=== PATIENT | male | born 1970 | race Caucasian/White ===

== ENCOUNTER 2020-08-02 12:12 | Outpatient (REF) | payer OTHER, SELFPAY ==
[2020-08-02 14:36] LABS: MANUAL DIFF FLAG NO
[2020-08-02 14:43] LABS: Basophils Percent Auto 0.6 % (0-2); Eosinophils Absolute Auto 0.1 X10*3/uL (0.0-0.4); Eosinophils Percent Auto 2.6 % (0-4); Hematocrit 42.1 % (42-52); Hemoglobin 14.4 g/dl (14.0-18.0); Imm Gran Abs Auto 0.01 X10*3/uL (0.00-0.03); Imm Gran Pct Auto 0.2 % (0.0-0.4); Lymphocytes Absolute Auto 1.9 X10*3/uL (1.2-4.9); Lymphocytes Percent Auto 40.9 % (20-40); Mean Corpuscular HGB Conc 34.2 g/dl (31.0-36.0); Mean Corpuscular Hemoglobin 27.6 pg (27.0-33.0); Mean Corpuscular Volume 80.8 fL (80-98); Mean Platelet Volume 10.2 fL (9.4-12.4); Monocytes Absolute Auto 0.4 X10*3/uL (0.1-1.2); Monocytes Percent Auto 9.2 % (2-11); Neutrophils Absolute Auto 2.2 X10*3/uL (2.0-8.3); Neutrophils Percent Auto 46.5 % (45-73); Platelet Count 259 X10*3/uL (160-400); Red Blood Count 5.21 X10*6/uL (4.60-5.80); Red Cell Distribution Width 13.1 % (11.0-16.0); White Blood Count 4.7 X10*3/uL (4.8-10.8)
[2020-08-02 15:23] LABS: Alanine Aminotransferase 72 U/L (0-40); Albumin Level 4.2 g/dL (3.5-5.0); Alkaline Phosphatase 55 U/L (39-117); Anion Gap 12 (12-20); Aspartate Amino Transferase 30 U/L (5-37); Bilirubin Total 0.3 mg/dL (0.0-1.0); Blood Urea Nitrogen 17 mg/dL (9-16); Calcium 8.5 mg/dL (8.4-10.2); Carbon Dioxide 31 mmol/L (22-29); Chloride 102 mmol/L (96-108); Cholesterol 149 mg/dL; Estimated Glomerular Filt Rate > 60; Glucose Fasting 150 mg/dL (60-99); HDL Cholesterol 27 mg/dL; LDL Cholesterol Calculated 82 mg/dl; Potassium 4.6 mmol/l (3.3-5.1); Sodium 140 mmol/L (135-145); Total Protein 6.6 g/dL (6.5-8.0); Triglycerides 202 mg/dL
== END 2020-08-02 12:13 | disposition home or self-care (01) ==
LOC: HO.HMGCLDS 12:12
PROVIDERS: PCP Internal Medicine; Visit Provider Internal Medicine
DX: E78.00 Pure hypercholesterolemia, unspecified (principal); E11.9 Type 2 diabetes mellitus without complications; I10 Essential (primary) hypertension; K21.9 Gastro-esophageal reflux disease without esophagitis; E66.3 Overweight; I47.1 Supraventricular tachycardia
CPT/HCPCS: 36415; 80053; 80061; 84443; 85025

== ENCOUNTER → 2020-08-20 08:30 | Outpatient (BNVA) | payer OTHER, SELFPAY | PROVIDERS: PCP Internal Medicine; Visit Provider Psychiatry & Neurology Neurology | DX: Z76.89 Persons encountering health services in other specified circumstances (principal) ==

== ENCOUNTER → 2020-10-10 14:17 | Outpatient (BNVA) | payer OTHER, SELFPAY | PROVIDERS: PCP Internal Medicine; Visit Provider Internal Medicine Cardiovascular Disease | DX: I47.1 Supraventricular tachycardia (principal); E11.9 Type 2 diabetes mellitus without complications | CPT/HCPCS: 93005 ==

== ENCOUNTER → 2020-11-26 11:27 | Outpatient (BNVA) | payer OTHER, SELFPAY | PROVIDERS: PCP Internal Medicine; Visit Provider Psychiatry & Neurology Neurology ==

== ENCOUNTER 2020-12-07 07:55 | Outpatient (REF) | payer OTHER, SELFPAY ==
[2020-12-07 08:32] LABS: MANUAL DIFF FLAG NO
[2020-12-07 08:41] LABS: Basophils Absolute Auto 0.1 X10*3/uL (0.0-0.2); Basophils Percent Auto 0.9 % (0-2); Eosinophils Absolute Auto 0.1 X10*3/uL (0.0-0.4); Eosinophils Percent Auto 2.3 % (0-4); Hematocrit 45.9 % (42-52); Hemoglobin 15.4 g/dl (14.0-18.0); Imm Gran Abs Auto 0.01 X10*3/uL (0.00-0.03); Imm Gran Pct Auto 0.2 % (0.0-0.4); Lymphocytes Absolute Auto 1.8 X10*3/uL (1.2-4.9); Lymphocytes Percent Auto 32.3 % (20-40); Mean Corpuscular HGB Conc 33.6 g/dl (31.0-36.0); Mean Corpuscular Hemoglobin 27.2 pg (27.0-33.0); Mean Platelet Volume 9.8 fL (9.4-12.4); Monocytes Absolute Auto 0.4 X10*3/uL (0.1-1.2); Monocytes Percent Auto 7.8 % (2-11); Neutrophils Absolute Auto 3.2 X10*3/uL (2.0-8.3); Neutrophils Percent Auto 56.5 % (45-73); Platelet Count 262 X10*3/uL (160-400); Red Blood Count 5.67 X10*6/uL (4.60-5.80); Red Cell Distribution Width 12.9 % (11.0-16.0); White Blood Count 5.7 X10*3/uL (4.8-10.8)
[2020-12-07 09:05] LABS: Alanine Aminotransferase 50 U/L (0-40); Albumin Level 4.4 g/dL (3.5-5.0); Alkaline Phosphatase 63 U/L (39-117); Anion Gap 13 (12-20); Aspartate Amino Transferase 25 U/L (5-37); Bilirubin Total 0.7 mg/dL (0.0-1.0); Blood Urea Nitrogen 18 mg/dL (9-16); Calcium 8.9 mg/dL (8.4-10.2); Carbon Dioxide 28 mmol/L (22-29); Chloride 104 mmol/L (96-108); Cholesterol 179 mg/dL; Estimated Glomerular Filt Rate > 60; Glucose Fasting 174 mg/dL (60-99); HDL Cholesterol 31 mg/dL; LDL Cholesterol Calculated 102 mg/dl; Potassium 4.5 mmol/L (3.3-5.1); Sodium 140 mmol/L (135-145); Triglycerides 233 mg/dL
[2020-12-07 09:27] LABS: TSH reflex Free T4 0.59 uIU/mL (0.32-4.0); Vitamin D 25-OH Total 45.4 ng/mL (>30)
[2020-12-12 15:17] LABS: Testosterone, Total 351 ng/dL (250-1100)
== END 2020-12-07 07:56 | disposition home or self-care (01) ==
LOC: HO.LAB 07:55
PROVIDERS: PCP Internal Medicine; Visit Provider Internal Medicine
DX: K21.9 Gastro-esophageal reflux disease without esophagitis (principal); E66.3 Overweight; E78.00 Pure hypercholesterolemia, unspecified; I47.1 Supraventricular tachycardia; I10 Essential (primary) hypertension; E11.9 Type 2 diabetes mellitus without complications; R68.82 Decreased libido; E55.9 Vitamin D deficiency, unspecified
CPT/HCPCS: 36415; 80053; 80061; 82306; 84402; 84403; 84443; 85025

== ENCOUNTER → 2021-01-10 15:15 | Outpatient (BNVA) | payer OTHER, SELFPAY | PROVIDERS: PCP Internal Medicine; Visit Provider Nurse Practitioner Family ==

== ENCOUNTER → 2021-02-04 14:48 | Outpatient (BNVA) | payer OTHER, SELFPAY | PROVIDERS: PCP Internal Medicine; Referring Provider Internal Medicine; Visit Provider Nurse Practitioner Family ==

== ENCOUNTER → 2021-03-11 11:24 | Outpatient (BNVA) | payer OTHER, SELFPAY | PROVIDERS: PCP Internal Medicine; Visit Provider Psychiatry & Neurology Neurology ==

== ENCOUNTER → 2021-04-04 13:00 | Outpatient (BNVA) | payer OTHER, SELFPAY | PROVIDERS: PCP Internal Medicine; Visit Provider Urology | DX: N41.9 Inflammatory disease of prostate, unspecified (principal) | CPT/HCPCS: 51798 ==

== ENCOUNTER 2021-04-04 16:28 | Emergency (ER) | payer OTHER, SELFPAY ==
--- NOTE | ~2021-04-04 | CT_ITS ---
EXAMINATION: CT ABDOMEN AND PELVIS WITHOUT CONTRAST CLINICAL INFORMATION: Left flank pain COMPARISON: 08/08/2018 TECHNIQUE: Multidetector volumetric imaging was performed from the superior aspect of the liver through the pubic symphysis. Sagittal and coronal reformatted images were obtained on the technologist's workstation. This CT examination was performed using dose optimization techniques as appropriate, variously including the following: *Automated exposure control *Adjustment of mA and/or kV according to patient size (this includes techniques or standardized protocols for targeted exams where dose is matched to indication/reason for exam; i.e. extremities or head) *Use of iterative reconstruction technique DLP: 668 mGy-cm FINDINGS: LUNG BASES: The visualized lung bases are unremarkable. LIVER, GALLBLADDER, AND BILIARY TREE: Diffuse hepatic steatosis without any gross abnormality on this nonenhanced study. Characteristic focal fatty sparing adjacent to the gallbladder fundus. No gross biliary dilatation. The gallbladder is unremarkable with no evidence of radiopaque gallstones, gallbladder wall thickening, or obvious pericholecystic inflammatory changes. PANCREAS: Unremarkable. SPLEEN: Unremarkable. ADRENAL GLANDS: Unremarkable. KIDNEYS AND URETERS: Right kidney unremarkable. Left kidney notable for hydronephrosis hydroureter down to the level UVJ where there is a 7 mm obstructing stone. No tandem stone. No perinephric collection. BLADDER: Unremarkable. GASTROINTESTINAL TRACT: Scattered diverticula throughout the colon without acute inflammatory changes. Stomach is distended with food material. Cecal base is unremarkable. ABDOMINAL WALL: No significant hernia is appreciated. LYMPH NODES: Normal. VASCULAR: Unremarkable. PELVIC VISCERA: Unremarkable. OSSEOUS STRUCTURES: Unremarkable. CT/CT abdomen pelvis wo con IMPRESSION: 7 mm left UVJ calculus causing obstruction. No tandem stone.
[2021-04-04 16:38] VITALS: BP 151/88; PULSE 64; RESP 16; TEMP 36.3; O2SAT 97; BMI 28.5
--- NOTE | 2021-04-04 16:51 | ECG_ITS ---
Test Reason : ?ALERGIC REACTION Blood Pressure : / mmHG Vent. Rate : 061 BPM Atrial Rate : 061 BPM P-R Int : 158 ms QRS Dur : 096 ms QT Int : 406 ms P-R-T Axes : 045 -16 031 degrees QTc Int : 408 ms Normal sinus rhythm Normal ECG When compared with ECG of 17-JAN-2018 02:05, No significant change was found Referred By: Generic ED Physician Electronically Signed By:NEWTON HARDY
[2021-04-04] MEDS: Acetaminophen 325 MG TABLET 650 MG PO (17:46)
--- NOTE | 2021-04-04 18:26 | ED.GENADULT ---
HPI - General Adult General Chief complaint: Allergic Reaction Stated complaint: med reaction Time Seen by Provider: 04/04/21 17:28 Source: patient Mode of arrival: ambulatory Limitations: no limitations History of Present Illness HPI narrative: 50-year-old male with past medical history of [id number] diabetes, hypertension, AV and RT, GERD, high cholesterol, anxiety here with complaints of left back pain with radiation to the left lower abdomen and testicle times several hours with nausea, feeling lightheaded and weak. No fevers, chills. He has had urinary frequency and urgency. No dysuria or hematuria. No vomiting. Patient was seen today by Dr. Liao and diagnosed with prostatitis. He was started on Cipro, prednisone and flomax. He took one dose of these today. Related Data Home Medications Medication Instructions Recorded Confirmed multivitamin 1 tab PO DAILY 07/23/20 11/06/20 cholecalciferol (vitamin D3) 25 25 mcg PO DAILY 08/19/20 11/06/20 mcg (1,000 unit) capsule Previous Rx's Medication Instructions Recorded sildenafil 50 mg tablet 50 mg PO DAILY PRN 30 Days #30 tab 08/30/20 miscellaneous medical supply 1 ea MISCELLANEOUS .daily as 09/18/20 instructed #1 ea metoprolol succinate 100 mg 100 mg PO DAILY #90 tab 10/09/20 tablet,extended release 24 hr lactobacillus combination no.8 3 3,000 mmu cells PO DAILY #30 cap 01/10/21 billion cell capsule metformin 500 mg tablet,extended 500 mg PO BID 90 Days #180 tab 01/21/21 release 24 hr methylcellulose (laxative) 500 mg 500 mg PO BID #60 tab 02/04/21 tablet omeprazole 20 mg capsule,delayed 20 mg PO DAILY #90 cap 02/04/21 release lisinopril 2.5 mg tablet 2.5 mg PO DAILY #90 tab 03/21/21 paroxetine HCl 30 mg tablet 30 mg PO QAM #90 tab 03/21/21 ciprofloxacin HCl 500 mg tablet 500 mg PO Q12H 14 Days #28 tab 04/04/21 ketorolac 10 mg PO Q8H PRN #10 tab 04/04/21 oxycodone 5 mg PO Q6H PRN #10 tab 04/04/21 prednisone 20 mg tablet 20 mg PO DAILY 5 Days #5 tab 04/04/21 tamsulosin 0.4 mg capsule 0.4 mg PO BEDTIME 30 Days #30 cap 04/04/21 Allergies Allergy/AdvReac Type Severity Reaction Status Date / Time No Known Allergies Allergy Verified 04/04/21 12:58 Review of Systems Review of Systems: Yes all other systems are reviewed and are negative Constitutional: Constitutional: Reports no additional constitutional complaints, Denies body ache(s), Denies chills, Denies fever(s), Denies headache(s) and Denies weakness Eyes: Eyes: Reports no additional eye complaints and Denies change in vision ENT: Reports system reviewed and no additional complaints, except as documented, Denies dizziness, Denies headache(s), Denies nasal congestion, Denies nasal discharge and Denies neck pain Cardiovascular: Cardiovascular: Reports no additional cardiovascular complaints, Denies chest pain, Denies leg edema and Denies dyspnea Respiratory: Respiratory: Reports no additional respiratory complaints, Denies cough and Denies dyspnea Gastrointestinal: Gastrointestinal: Reports no additional gastrointestinal complaints, Reports abdominal pain, Denies diarrhea, Reports nausea and Denies vomiting Genitourinary: Genitourinary: Denies hematuria, Denies dysuria, Reports flank pain, Reports testicular pain, Denies urinary incontinence and Reports urinary urgency Musculoskeletal: Musculoskeletal: Reports no additional musculoskeletal complaints, Reports back pain, Denies arthralgias, Denies joint swelling, Denies neck pain, Denies numbness and Denies tingling Integumentary/Breasts: Skin/Breast: Reports system reviewed and no additional complaints, except as docu and Denies rash Neurologic: Reports system reviewed and no additional complaints, except as documented, Denies Abnormal speech present, Denies dizziness, Denies headache(s), Denies numbness, Denies tingling and Denies weakness [facility] Past Medical History Attestation statement: The following information was validated with the patient. Source: old records reviewed and nursing notes reviewed Medical History Anxiety AVNRT (AV clint re-entry tachycardia) Benign essential hypertension Degenerative joint disease of right shoulder Diabetes mellitus GERD without esophagitis Low back pain Overweight (BMI 25.0-29.9) Pure hypercholesterolemia Urinary frequency Vitamin D deficiency Surgical History H/O left knee surgery History of arthroscopy of right shoulder History of nasal surgery Family History Family History Father Lung cancer Mother Medical history unknown Maternal Grandfather Myocardial infarction Maternal Uncle Myocardial infarction Social History Social History Household Members: Significant Other and Children Alcohol intake: former Advance Directives: No Advance Directives Information Provided: No Physical Exam Vital Signs: Vital Signs: Last Vital Signs Temp 97.7 F 04/04/21 21:34 Pulse 71 04/04/21 21:34 Resp 16 04/04/21 21:34 BP 131/76 04/04/21 21:34 Pulse Ox 99 04/04/21 21:34 Body Mass Index 28.5 Const: General: cooperative, healthy appearing, comfortable and no acute distress Orientation/consciousness: patient oriented x3 Limitations: no limitations HENMT: Head: Yes normal to inspection Ears: hearing grossly normal bilaterally General nose exam: Normal external nose present Face and sinus: Yes normal facial exam Mouth: Normal oral and palatal mucosa present Throat: Yes posterior oropharynx normal Eyes: General: appearance normal, both eyes and all related structures Pupils: Equal, round and reactive pupils present Neck: Neck: Yes normal visual inspection Chest: Chest palpation & inspection: normal inspection of the chest Resp: Effort & Inspection: normal respiratory effort Auscultation: clear to auscultation bilaterally Cardio: Rate: regular rate Rhythm: regular rhythm Peripheral pulses: Peripheral pulses 2+ throughout GI: Inspection: Yes normal to inspection Palpation (GI): Soft to palpation and Tenderness to palpation present (GI) (Left lower abdominal tenderness with no rebound or guarding) Auscultation: normal bowel sounds : Other: Deferred exam General: Yes no CVA tenderness Back/Spine/Pelvis: Back: no CVA tenderness Thoracic/Lumbar Spine: thoracic and lumbar spine normal to inspection Skin: General skin exam: no rashes or lesions noted Neuro: General: patient oriented x3, no focal motor deficits and normal sensation to monofilament Cranial nerves: Yes Equal, round and reactive pupils present Cognition (Neuro): normal cognition Speech: No Abnormal speech present Gait exam (Neuro): Normal gait present Motor exam (neuro): 5/5 motor strength present throughout Extrem: General: Yes normal to inspection, Yes no pedal edema and Yes no calf tenderness Course Course Course Narrative: 50-year-old male here with complaints of left flank pain with radiation to left lower abdomen and left testicle times several hours with nausea and diaphoresis. Also complaining of urinary frequency and urgency. Diagnosis of prostatitis by Dr. Liao today and started on Cipro, Flomax of prednisone. Took 1 dose of these but then the pain started which brought him here to the emergency room today. On exam has no CVA tenderness but does have some mild left lower abdominal tenderness. Will check labs, UA, CT A/P, provide analgesia and reassess 2100-labs are unremarkable. UA shows no signs of infection. CT is consistent with a left 7 mm obstructing UVJ stone. Patient is pain-free after 1 dose of morphine and 1 dose of Toradol. No vomiting and tolerating p.o. Admission was offered but the patient would prefer to go home as he is feeling improved and will follow up outpatient with Urology on Wednesday. He has a prescription for prednisone and Flomax at home which I recommended he continue to take. Reviewed worrisome signs and symptoms such as worsening pain, fever, vomiting and when to return to the emergency department. Comfortable discharge home. Medical Decision Making MDM Narrative Medical decision making narrative: Renal colic, UTI, pyelonephritis Medical Records Medical records reviewed: Yes I reviewed the patient's medical records. Lab Data Lab results reviewed: Yes I reviewed the patient's lab results. Result diagrams: 04/04/21 18:44 04/04/21 18:44 Labs: Lab Results 04/04/21 04/04/21 04/04/21 Range/Units 18:44 18:44 18:44 WBC 10.2 (4.8-10.8) X10*3/uL RBC 5.03 (4.60-5.80) X10*6/uL Hgb 13.9 L (14.0-18.0) g/dl Hct 40.4 L (42-52) % MCV 80.3 (80-98) fL MCH 27.6 (27.0-33.0) pg MCHC 34.4 (31.0-36.0) g/dl RDW 13.0 (11.0-16.0) % Plt Count 228 (160-400) X10*3/uL MPV 9.8 (9.4-12.4) fL Immature Gran % (Auto) 0.3 (0.0-0.4) % Neut % (Auto) 83.1 H (45-73) % Lymph % (Auto) 12.1 L (20-40) % [place] % (Auto) 3.3 (2-11) % Eos % (Auto) 0.7 (0-4) % Baso % (Auto) 0.5 (0-2) % Lymph # (Auto) 1.2 (1.2-4.9) X10*3/uL [place] # (Auto) 0.3 (0.1-1.2) X10*3/uL Eos # (Auto) 0.1 (0.0-0.4) X10*3/uL Baso # (Auto) 0.1 (0.0-0.2) X10*3/uL Abs Immat Gran (auto) 0.03 (0.00-0.03) X10*3/uL Absolute Neuts (auto) 8.5 H (2.0-8.3) X10*3/uL Absolute Nucleated RBC 0.000 (0.0-0.012) X10*3/uL Nucleated RBC % (auto) 0.0 (0.0-0.2) /100WBC Sodium 139 (135-145) mmol/L Potassium 4.8 (3.3-5.1) mmol/L Chloride 105 (96-108) mmol/L Carbon Dioxide 22 (22-29) mmol/L Anion Gap 17 (12-20) BUN 14 (9-16) mg/dL Creatinine 1.10 (0.5-1.4) mg/dL Estim Creat Clear Calc 94.6 Estimated GFR > 60 Random Glucose 178 H (60-115) mg/dL Calcium 9.5 D (8.4-10.2) mg/dL Magnesium 1.9 (1.6-2.6) mg/dL Total Bilirubin (0.0-1.0) mg/dL Direct Bilirubin (0.0-0.5) mg/dL AST (5-37) U/L ALT (0-40) U/L Alkaline Phosphatase (39-117) U/L Troponin I High Sens < 3.5 (<3.5-35.0) ng/L Total Protein (6.5-8.0) g/dL Albumin (3.5-5.0) g/dL 04/04/21 Range/Units 18:44 WBC (4.8-10.8) X10*3/uL RBC (4.60-5.80) X10*6/uL Hgb (14.0-18.0) g/dl Hct (42-52) % MCV (80-98) fL MCH (27.0-33.0) pg MCHC (31.0-36.0) g/dl RDW (11.0-16.0) % Plt Count (160-400) X10*3/uL MPV (9.4-12.4) fL Immature Gran % (Auto) (0.0-0.4) % Neut % (Auto) (45-73) % Lymph % (Auto) (20-40) % [place] % (Auto) (2-11) % Eos % (Auto) (0-4) % Baso % (Auto) (0-2) % Lymph # (Auto) (1.2-4.9) X10*3/uL [place] # (Auto) (0.1-1.2) X10*3/uL Eos # (Auto) (0.0-0.4) X10*3/uL Baso # (Auto) (0.0-0.2) X10*3/uL Abs Immat Gran (auto) (0.00-0.03) X10*3/uL Absolute Neuts (auto) (2.0-8.3) X10*3/uL Absolute Nucleated RBC (0.0-0.012) X10*3/uL Nucleated RBC % (auto) (0.0-0.2) /100WBC Sodium (135-145) mmol/L Potassium (3.3-5.1) mmol/L Chloride (96-108) mmol/L Carbon Dioxide (22-29) mmol/L Anion Gap (12-20) BUN (9-16) mg/dL Creatinine (0.5-1.4) mg/dL Estim Creat Clear Calc Estimated GFR Random Glucose (60-115) mg/dL Calcium (8.4-10.2) mg/dL Magnesium (1.6-2.6) mg/dL Total Bilirubin 0.4 (0.0-1.0) mg/dL Direct Bilirubin < 0.2 (0.0-0.5) mg/dL AST 37 D (5-37) U/L ALT 55 H (0-40) U/L Alkaline Phosphatase 61 (39-117) U/L Troponin I High Sens (<3.5-35.0) ng/L Total Protein 7.0 (6.5-8.0) g/dL Albumin 4.2 (3.5-5.0) g/dL Imaging Data CT scan - abdomen: Attestation: I personally reviewed and interpreted this imaging study as follows: Radiologist's impression: FINDINGS: LUNG BASES: The visualized lung bases are unremarkable. LIVER, GALLBLADDER, AND BILIARY TREE: Diffuse hepatic steatosis without any gross abnormality on this nonenhanced study. Characteristic focal fatty sparing adjacent to the gallbladder fundus. No gross biliary dilatation. The gallbladder is unremarkable with no evidence of radiopaque gallstones, gallbladder wall thickening, or obvious pericholecystic inflammatory changes. PANCREAS: Unremarkable. SPLEEN: Unremarkable. ADRENAL GLANDS: Unremarkable. KIDNEYS AND URETERS: Right kidney unremarkable. Left kidney notable for hydronephrosis hydroureter down to the level UVJ where there is a 7 mm obstructing stone. No tandem stone. No perinephric collection. BLADDER: Unremarkable. GASTROINTESTINAL TRACT: Scattered diverticula throughout the colon without acute inflammatory changes. Stomach is distended with food material. Cecal base is unremarkable. ABDOMINAL WALL: No significant hernia is appreciated. LYMPH NODES: Normal. VASCULAR: Unremarkable. PELVIC VISCERA: Unremarkable. OSSEOUS STRUCTURES: Unremarkable. CT/CT abdomen pelvis wo con IMPRESSION: 7 mm left UVJ calculus causing obstruction. No tandem stone. Discharge Plan Discharge Clinical Impression: Renal colic on left side Patient Disposition: Home, Self-Care Instructions: Renal Colic (ED) Additional Instructions: Continue your medications are prescribed by Dr. Liao today Try taking the Toradol 1st. If that does not work then take the oxycodone Call him Wednesday morning as discussed Return for severe pain, vomiting, fever Prescriptions: New ketorolac 10 mg tablet 10 mg PO Q8H PRN (Reason: pain) Qty: 10 RF: 0 oxycodone 5 mg tablet 5 mg PO Q6H PRN (Reason: pain) Qty: 10 RF: 0 No Action cholecalciferol (vitamin D3) 25 mcg (1,000 unit) capsule 25 mcg PO DAILY RF: 0 sildenafil [Viagra] 50 mg tablet 50 mg PO DAILY PRN (Reason: sexual activity) 30 Days Qty: 30 RF: 1 miscellaneous medical supply Mis 1 ea miscellaneous .daily as instructed Qty: 1 RF: 12 metoprolol succinate 100 mg tablet extended release 24 hr 100 mg PO DAILY Qty: 90 RF: 3 metformin 500 mg tablet extended release 24 hr 500 mg PO BID 90 Days Qty: 180 RF: 1 lisinopril 2.5 mg tablet 2.5 mg PO DAILY Qty: 90 RF: 2 paroxetine HCl 30 mg tablet 30 mg PO QAM Qty: 90 RF: 2 multivitamin Tablet 1 tab PO DAILY RF: 0 Adult Probiotic 3 billion cell capsule 3,000 mmu cells PO DAILY Qty: 30 RF: 2 Citrucel 500 mg tablet 500 mg PO BID Qty: 60 RF: 2 omeprazole 20 mg capsule,delayed release(DR/EC) 20 mg PO DAILY Qty: 90 RF: 1 prednisone 20 mg tablet 20 mg PO DAILY 5 Days Qty: 5 RF: 0 ciprofloxacin HCl 500 mg tablet 500 mg PO Q12H 14 Days Qty: 28 RF: 0 tamsulosin [Flomax] 0.4 mg capsule 0.4 mg PO BEDTIME 30 Days Qty: 30 RF: 0 Referrals: Darin Liao MD [Physician] - 2 days Discharge Date/Time: 04/04/21 21:35
[2021-04-04] MEDS: 0.9 % Sodium Chloride 1,000 ML 999 ML IV (18:46)
[2021-04-04] MEDS: ondansetron HCL 4 MG/2 ML VIAL IVPUSH (18:46)
[2021-04-04] MEDS: Morphine Sulfate 4 MG/ML CARTRIDGE IVPUSH (18:47)
[2021-04-04 18:58] LABS: MANUAL DIFF FLAG NO
[2021-04-04 19:00] LABS: Basophils Absolute Auto 0.1 X10*3/uL (0.0-0.2); Basophils Percent Auto 0.5 % (0-2); Eosinophils Absolute Auto 0.1 X10*3/uL (0.0-0.4); Eosinophils Percent Auto 0.7 % (0-4); Hematocrit 40.4 % (42-52); Hemoglobin 13.9 g/dl (14.0-18.0); Imm Gran Abs Auto 0.03 X10*3/uL (0.00-0.03); Imm Gran Pct Auto 0.3 % (0.0-0.4); Lymphocytes Absolute Auto 1.2 X10*3/uL (1.2-4.9); Lymphocytes Percent Auto 12.1 % (20-40); Mean Corpuscular HGB Conc 34.4 g/dl (31.0-36.0); Mean Corpuscular Hemoglobin 27.6 pg (27.0-33.0); Mean Corpuscular Volume 80.3 fL (80-98); Mean Platelet Volume 9.8 fL (9.4-12.4); Monocytes Absolute Auto 0.3 X10*3/uL (0.1-1.2); Monocytes Percent Auto 3.3 % (2-11); Neutrophils Absolute Auto 8.5 X10*3/uL (2.0-8.3); Neutrophils Percent Auto 83.1 % (45-73); Platelet Count 228 X10*3/uL (160-400); Red Blood Count 5.03 X10*6/uL (4.60-5.80); White Blood Count 10.2 X10*3/uL (4.8-10.8)
[2021-04-04 19:48] LABS: Anion Gap 17 (12-20); Blood Urea Nitrogen 14 mg/dL (9-16); Calcium 9.5 mg/dL (8.4-10.2); Carbon Dioxide 22 mmol/L (22-29); Chloride 105 mmol/L (96-108); Creatinine Clr Calc Pharmacy 94.6; Estimated Glomerular Filt Rate > 60; Glucose Random 178 mg/dL (60-115); Magnesium 1.9 mg/dL (1.6-2.6); Potassium 4.8 mmol/L (3.3-5.1); Sodium 139 mmol/L (135-145)
[2021-04-04 19:49] LABS: Alanine Aminotransferase 55 U/L (0-40); Albumin Level 4.2 g/dL (3.5-5.0); Alkaline Phosphatase 61 U/L (39-117); Aspartate Amino Transferase 37 U/L (5-37); Bilirubin Direct < 0.2 mg/dL (0.0-0.5); Bilirubin Total 0.4 mg/dL (0.0-1.0)
[2021-04-04 19:52] LABS: Troponin-I High Sensitivity < 3.5 ng/L (<3.5-35.0)
[2021-04-04] MEDS: Ketorolac Tromethamine 60 MG/2 ML VIAL 30 MG IM (20:19)
[2021-04-04 20:23] VITALS: BP 138/75; PULSE 69; RESP 16; O2SAT 99
[2021-04-04 21:34] VITALS: BP 131/76; PULSE 71; RESP 16; TEMP 36.5; O2SAT 99
== END 2021-04-04 21:35 | disposition home or self-care (01) ==
PROVIDERS: Nurse Practitioner Family; Emergency Provider Emergency Medicine; PCP Internal Medicine
DX: N23 Unspecified renal colic (principal); M54.5 Low back pain; E11.9 Type 2 diabetes mellitus without complications; Z79.899 Other long term (current) drug therapy
CPT/HCPCS: 36415; 74176; 80048; 80076; 83735; 84484; 85025; 93005; 96365; 96375; 96376; 99285; J1885; J2270; J2405

== ENCOUNTER 2021-04-05 07:59 | Outpatient (REF) | payer OTHER, SELFPAY ==
[2021-04-05 08:49] LABS: Basophils Percent Auto 0.4 % (0-2); Eosinophils Percent Auto 0.5 % (0-4); Hematocrit 39.8 % (42-52); Hemoglobin 13.3 g/dl (14.0-18.0); Imm Gran Abs Auto 0.03 X10*3/uL (0.00-0.03); Imm Gran Pct Auto 0.4 % (0.0-0.4); Lymphocytes Absolute Auto 1.8 X10*3/uL (1.2-4.9); Lymphocytes Percent Auto 22.2 % (20-40); MANUAL DIFF FLAG NO; Mean Corpuscular HGB Conc 33.4 g/dl (31.0-36.0); Mean Corpuscular Hemoglobin 26.9 pg (27.0-33.0); Mean Corpuscular Volume 80.6 fL (80-98); Monocytes Absolute Auto 0.5 X10*3/uL (0.1-1.2); Monocytes Percent Auto 6.5 % (2-11); Neutrophils Absolute Auto 5.8 X10*3/uL (2.0-8.3); Platelet Count 240 X10*3/uL (160-400); Red Blood Count 4.94 X10*6/uL (4.60-5.80); White Blood Count 8.2 X10*3/uL (4.8-10.8)
[2021-04-05 09:13] LABS: Estimated Average Glucose 134 mg/dL; Hemoglobin A1c % 6.3 %
[2021-04-05 09:30] LABS: Alanine Aminotransferase 47 U/L (0-40); Albumin Level 4.1 g/dL (3.5-5.0); Alkaline Phosphatase 55 U/L (39-117); Anion Gap 14 (12-20); Aspartate Amino Transferase 22 U/L (5-37); Bilirubin Total 0.6 mg/dL (0.0-1.0); Blood Urea Nitrogen 22 mg/dL (9-16); Calcium 9.3 mg/dL (8.4-10.2); Carbon Dioxide 25 mmol/L (22-29); Chloride 104 mmol/L (96-108); Cholesterol 190 mg/dL; Estimated Glomerular Filt Rate > 60; Glucose Fasting 147 mg/dL (60-99); HDL Cholesterol 36 mg/dL; LDL Cholesterol Calculated 118 mg/dl; Potassium 4.4 mmol/L (3.3-5.1); Sodium 139 mmol/L (135-145); Total Protein 6.5 g/dL (6.5-8.0); Triglycerides 184 mg/dL
[2021-04-07 13:37] LABS: CRP High Sensitivity 2.1 mg/L
[2021-04-08 22:47] LABS: Transglutaminase Ab IgG 5 U/mL; Transglutaminase IgA 2 U/mL
== END 2021-04-05 08:00 | disposition home or self-care (01) ==
LOC: HO.LAB 07:59
PROVIDERS: Absent Provider Nurse Practitioner Family; PCP Internal Medicine; Visit Provider Internal Medicine
DX: R10.11 Right upper quadrant pain (principal); E11.9 Type 2 diabetes mellitus without complications; E78.00 Pure hypercholesterolemia, unspecified; I10 Essential (primary) hypertension; K21.9 Gastro-esophageal reflux disease without esophagitis; R74.8 Abnormal levels of other serum enzymes; Z83.79 Family history of other diseases of the digestive system
CPT/HCPCS: 36415; 80053; 80061; 83036; 83516; 85025; 86141

== ENCOUNTER 2021-04-07 13:18 | Day surgery (SDC) | payer OTHER, SELFPAY ==
[2021-04-07] VITALS (11 sets, daily range): BP systolic 99–127; BP diastolic 55–85; PULSE 56–86; RESP 16–20; TEMP 36.3–36.7; O2SAT 89–99; BMI 28.5
--- NOTE | 2021-04-07 12:48 | ED_ITS ---
HPI - Abdominal Pain General Chief Complaint: Abdominal Pain Stated Complaint: Kidney stones Time Seen by Provider: 04/07/21 12:47 Source: patient and old records reviewed Mode of arrival: ambulatory Limitations: no limitations History of Present Illness MD elicited complaint: flank pain Pertinent past history: kidney stones (dx 04/04 with 7mm obstructing UVJ stone on L side plan to add on to OR today via Dr. Liao - has been on cipro as well due to dx of prostatitis by Dr. Liao) Onset (ago): day(s) (3) Pain Consistency: intermittent Location: L flank Severity: moderate Quality: stabbing Radiation: none Migration to: no migration Exacerbating factors: nothing Relieving factors: medication Context: history of similar episodes Associated symptoms: nausea and dysuria Treatments prior to arrival: prescription analgesics and other (antibiotics) Related Data Home Medications Medication Instructions Recorded Confirmed multivitamin 1 tab PO DAILY 07/23/20 04/07/21 cholecalciferol (vitamin D3) 25 25 mcg PO DAILY 08/19/20 04/07/21 mcg (1,000 unit) capsule sildenafil 1 tab PO DAILY PRN 04/07/21 04/07/21 Previous Rx's Medication Instructions Recorded metoprolol succinate 100 mg 100 mg PO DAILY #90 tab 10/09/20 tablet,extended release 24 hr lactobacillus combination no.8 3 3,000 mmu cells PO DAILY #30 cap 01/10/21 billion cell capsule metformin 500 mg tablet,extended 500 mg PO BID 90 Days #180 tab 01/21/21 release 24 hr methylcellulose (laxative) 500 mg 500 mg PO BID #60 tab 02/04/21 tablet omeprazole 20 mg capsule,delayed 20 mg PO DAILY #90 cap 02/04/21 release lisinopril 2.5 mg tablet 2.5 mg PO DAILY #90 tab 03/21/21 paroxetine HCl 30 mg tablet 30 mg PO QAM #90 tab 03/21/21 ketorolac 10 mg PO Q8H PRN #10 tab 04/04/21 Allergies Allergy/AdvReac Type Severity Reaction Status Date / Time No Known Allergies Allergy Verified 04/07/21 12:47 Review of Systems Review of Systems Constitutional : No Weight loss, No Fever, No Chills ENT/Mouth : No sore throat, No Rhinorrhea Eyes: No Swelling, No Redness Cardiovascular : No Chest Pain, No SOB, NoEdema Respiratory : No Cough, No Sputum, No Wheezing Gastrointestinal : Positive Nausea, no Vomiting,no Diarrhea, positive abdominal Pain (flank pain), No Hematochezia, No Melena Genitourinary : pos Dysuria, No Urinary Frequency, No Hematuria, No Urgency Musculoskeletal : No joint pain, No Myalgias, No Joint Swelling Skin : No Skin Lesions, No rash Neuro : No Weakness, No Numbness, No Dizziness, No Headache Psych : No Anxiety/Panic, No Depression Heme/Lymph: No Bruising, No Lymphadenopathy Endocrine : No Polyuria, No Polydipsia All other systems reviewed and are negative. Physical Exam Vital Signs: Vital Signs: Last Vital Signs Temp 98.0 F 04/07/21 13:10 Pulse 62 04/07/21 12:47 Resp 20 04/07/21 12:47 BP 114/76 04/07/21 12:47 Pulse Ox 98 04/07/21 12:47 Body Mass Index 28.5 Appearance: Alert. Oriented X3. No acute distress. Eyes: Pupils equal, round and reactive to light. ENT: Pharynx normal. Neck: Normal inspection. Neck supple. CVS: Normal heart rate and rhythm. Pulses normal. Respiratory: No respiratory distress. Breath sounds normal. Abdomen: Mild L sided CVA ttp no rebound or guarding Skin: Skin warm and dry. Normal skin color. Normal skin turgor. Extremities: No lower extremity edema. No calf ttp Neuro: Oriented X 3. No motor deficit. No sensory deficit. MDM - Abdominal Pain MDM Narrative Medical decision making narrative: 50 yo male with hx of SUJEY, prostatitis, here with 3 days of intermittent L flank pain - dx with obstructive 7mm stone UVJ - at this time plan is for possible added on procedure with Dr. Liao - IVF, labs, UA, IV morphine/ativan for pain, I did notify Dr. Liao he will see him in the ED at this time, patient has been NPO all day Lab Data Result diagrams: 04/07/21 13:22 04/07/21 13:22 Labs: Lab Results 04/07/21 04/07/21 04/07/21 Range/Units 13:22 13:22 13:22 WBC 5.1 (4.8-10.8) X10*3/uL RBC 5.20 (4.60-5.80) X10*6/uL Hgb 14.0 (14.0-18.0) g/dl Hct 41.5 L (42-52) % MCV 79.8 L (80-98) fL MCH 26.9 L (27.0-33.0) pg MCHC 33.7 (31.0-36.0) g/dl RDW 12.9 (11.0-16.0) % Plt Count 221 (160-400) X10*3/uL MPV 9.9 (9.4-12.4) fL Immature Gran % (Auto) 0.2 (0.0-0.4) % Neut % (Auto) 51.6 (45-73) % Lymph % (Auto) 36.9 (20-40) % [place] % (Auto) 8.3 (2-11) % Eos % (Auto) 2.4 (0-4) % Baso % (Auto) 0.6 (0-2) % Lymph # (Auto) 1.9 (1.2-4.9) X10*3/uL [place] # (Auto) 0.4 (0.1-1.2) X10*3/uL Eos # (Auto) 0.1 (0.0-0.4) X10*3/uL Baso # (Auto) 0.0 (0.0-0.2) X10*3/uL Abs Immat Gran (auto) 0.01 (0.00-0.03) X10*3/uL Absolute Neuts (auto) 2.6 (2.0-8.3) X10*3/uL Absolute Nucleated RBC 0.000 (0.0-0.012) X10*3/uL Nucleated RBC % (auto) 0.0 (0.0-0.2) /100WBC PT 11.1 (9.9-13.0) SEC INR 1.0 (0.9-1.1) APTT 32.6 (24.1-38.0) SEC Sodium 138 (135-145) mmol/L Potassium 4.3 (3.3-5.1) mmol/L Chloride 104 (96-108) mmol/L Carbon Dioxide 23 (22-29) mmol/L Anion Gap 15 (12-20) BUN 14 (9-16) mg/dL Creatinine 0.72 (0.5-1.4) mg/dL Estim Creat Clear Calc 144.6 Estimated GFR > 60 Random Glucose 130 H (60-115) mg/dL Calcium 9.1 (8.4-10.2) mg/dL COVID-19 (FREDERIC) (Negative) COVID-19 Clin Com 04/07/21 Range/Units 13:22 WBC (4.8-10.8) X10*3/uL RBC (4.60-5.80) X10*6/uL Hgb (14.0-18.0) g/dl Hct (42-52) % MCV (80-98) fL MCH (27.0-33.0) pg MCHC (31.0-36.0) g/dl RDW (11.0-16.0) % Plt Count (160-400) X10*3/uL MPV (9.4-12.4) fL Immature Gran % (Auto) (0.0-0.4) % Neut % (Auto) (45-73) % Lymph % (Auto) (20-40) % [place] % (Auto) (2-11) % Eos % (Auto) (0-4) % Baso % (Auto) (0-2) % Lymph # (Auto) (1.2-4.9) X10*3/uL [place] # (Auto) (0.1-1.2) X10*3/uL Eos # (Auto) (0.0-0.4) X10*3/uL Baso # (Auto) (0.0-0.2) X10*3/uL Abs Immat Gran (auto) (0.00-0.03) X10*3/uL Absolute Neuts (auto) (2.0-8.3) X10*3/uL Absolute Nucleated RBC (0.0-0.012) X10*3/uL Nucleated RBC % (auto) (0.0-0.2) /100WBC PT (9.9-13.0) SEC INR (0.9-1.1) APTT (24.1-38.0) SEC Sodium (135-145) mmol/L Potassium (3.3-5.1) mmol/L Chloride (96-108) mmol/L Carbon Dioxide (22-29) mmol/L Anion Gap (12-20) BUN (9-16) mg/dL Creatinine (0.5-1.4) mg/dL Estim Creat Clear Calc Estimated GFR Random Glucose (60-115) mg/dL Calcium (8.4-10.2) mg/dL COVID-19 (FREDERIC) Negative (Negative) COVID-19 Clin Com See Note ECG Data Attestation: I personally reviewed and interpreted this ECG as follows: ECG interpretation date: 04/07/21 ECG interpretation time: 14:59 Interpretation: Rate: 56 Rhythm: sinus bradycardia [place]: left Normal P waves. Normal LEXI. Normal QRS complex. ST T wave : nonspecific, no JOYCE qTC: normal prior studies: no acute ischemia The study has been interpreted contemporaneously by me. . Discharge Plan Discharge Clinical Impression: Ureterolithiasis Patient Disposition: Admitted As Inpatient [facility] Past Medical History Attestation statement: The following information was validated with the patient. Medical History Anxiety AVNRT (AV clint re-entry tachycardia) Benign essential hypertension Degenerative joint disease of right shoulder Diabetes mellitus GERD without esophagitis Low back pain Overweight (BMI 25.0-29.9) Pure hypercholesterolemia Urinary frequency Vitamin D deficiency Surgical History H/O left knee surgery History of arthroscopy of right shoulder History of nasal surgery Family History Family History Father Lung cancer Mother Medical history unknown Maternal Grandfather Myocardial infarction Maternal Uncle Myocardial infarction Social History Social History (Updated 04/07/21 @ 13:29 by Qi Martino DO) Household Members: Significant Other and Children Alcohol intake: never Patient Tobacco Use Status: Former Tobacco user Use of substances other than those prescribed or required for medical reasons: No Advance Directives: No Advance Directives Information Provided: Yes
--- NOTE | 2021-04-07 12:56 | ECG_ITS ---
Test Reason : CHEST PAIN Blood Pressure : / mmHG Vent. Rate : 056 BPM Atrial Rate : 056 BPM P-R Int : 160 ms QRS Dur : 098 ms QT Int : 440 ms P-R-T Axes : 049 -17 014 degrees QTc Int : 424 ms Sinus bradycardia Normal ECG When compared with ECG of 04-APR-2021 17:02, No significant change was found Referred By: Qi Martino Electronically Signed By:Kermit Yi
[2021-04-07 13:35] LABS: MANUAL DIFF FLAG NO
[2021-04-07 13:37] LABS: Basophils Percent Auto 0.6 % (0-2); Eosinophils Absolute Auto 0.1 X10*3/uL (0.0-0.4); Eosinophils Percent Auto 2.4 % (0-4); Hematocrit 41.5 % (42-52); Imm Gran Abs Auto 0.01 X10*3/uL (0.00-0.03); Imm Gran Pct Auto 0.2 % (0.0-0.4); Lymphocytes Absolute Auto 1.9 X10*3/uL (1.2-4.9); Lymphocytes Percent Auto 36.9 % (20-40); Mean Corpuscular HGB Conc 33.7 g/dl (31.0-36.0); Mean Corpuscular Hemoglobin 26.9 pg (27.0-33.0); Mean Corpuscular Volume 79.8 fL (80-98); Mean Platelet Volume 9.9 fL (9.4-12.4); Monocytes Absolute Auto 0.4 X10*3/uL (0.1-1.2); Monocytes Percent Auto 8.3 % (2-11); Neutrophils Absolute Auto 2.6 X10*3/uL (2.0-8.3); Neutrophils Percent Auto 51.6 % (45-73); Platelet Count 221 X10*3/uL (160-400); Red Cell Distribution Width 12.9 % (11.0-16.0); White Blood Count 5.1 X10*3/uL (4.8-10.8)
[2021-04-07] MEDS: 0.9 % Sodium Chloride 1,000 ML 125 ML IVCONT (13:39)
[2021-04-07] MEDS: Morphine Sulfate 2 MG/ML CARTRIDGE IVPUSH ×2 (13:40→17:34)
[2021-04-07] MEDS: ondansetron HCL 4 MG/2 ML VIAL IVPUSH (13:41)
[2021-04-07] MEDS: LORazepam 2 MG/ML VIAL 1 MG IVPUSH ×2 (13:41→17:35)
[2021-04-07 13:48] LABS: Prothrombin Time 11.1 SEC (9.9-13.0)
[2021-04-07 13:51] LABS: Partial Thromboplastin Time 32.6 SEC (24.1-38.0)
[2021-04-07 13:58] LABS: Anion Gap 15 (12-20); Blood Urea Nitrogen 14 mg/dL (9-16); Calcium 9.1 mg/dL (8.4-10.2); Carbon Dioxide 23 mmol/L (22-29); Chloride 104 mmol/L (96-108); Creatinine Clr Calc Pharmacy 144.6; Estimated Glomerular Filt Rate > 60; Glucose Random 130 mg/dL (60-115); Potassium 4.3 mmol/L (3.3-5.1); Sodium 138 mmol/L (135-145)
[2021-04-07 13:59] LABS: COVID-19 Test Negative (Negative); IDNOW Serial# 9DD0AD1C
[2021-04-07 15:13] LABS: Glucose Urine UA NEG (NEG); Leukocyte Esterase Urine NEG (NEG); Nitrite Urine NEG (NEG); PH 7.5 (5.0-8.0); Specific Gravity - Urine <= 1.005 (1.005-1.025); Urine Blood NEG (NEG); Urine Ketones NEG (NEG); Urine Protein NEG (NEG-TRACE)
[2021-04-07 15:15] LABS: Appearance Urine CLEAR; Color Urine YELLOW
--- NOTE | 2021-04-07 15:22 | PM.UROCN ---
History of Present Illness Consult details Consult date: 04/07/21 Narrative: Fredrick is a pleasant male. Had been seen by PCP last Wednesday and CT scan performed. 7 mm distal left ureteric stone located. Persistent pain at with nausea over the weekend. Not tolerating orals this morning. Admitted to the emergency room for evaluation. Pain currently 5/10 down from 8/10. This secondary to IV pain medication. Would like to move ahead with intervention for his stone. Given the distal location recommendation would be for cystoscopy, retrograde, ureteroscopy and laser lithotripsy with stent placement. We will move ahead with this. Review of Systems Constitutional: Constitutional: Denies chills and Denies fever(s) Cardiovascular: Cardiovascular: Reports no additional cardiovascular complaints and Denies syncope Respiratory: Respiratory: Denies cough Gastrointestinal: Gastrointestinal: Denies abdominal pain and Denies heartburn Genitourinary: Genitourinary: Reports as per HPI and Denies change in libido Neurologic: Denies syncope Psychiatric: Psychiatric: Denies change in libido Endocrine: Endocrine: Denies change in libido [facility] Past Medical History Medical History Anxiety AVNRT (AV clint re-entry tachycardia) Benign essential hypertension Degenerative joint disease of right shoulder Diabetes mellitus GERD without esophagitis Low back pain Overweight (BMI 25.0-29.9) Pure hypercholesterolemia Urinary frequency Vitamin D deficiency Family History Family History Father Lung cancer Mother Medical history unknown Maternal Grandfather Myocardial infarction Maternal Uncle Myocardial infarction Surgical History Surgical History H/O left knee surgery History of arthroscopy of right shoulder History of nasal surgery Social History Social History (Updated 04/07/21 @ 13:29 by Qi Martino DO) Household Members: Significant Other and Children Alcohol intake: never Patient Tobacco Use Status: Former Tobacco user Use of substances other than those prescribed or required for medical reasons: No Advance Directives: No Advance Directives Information Provided: Yes Meds Allergies Allergy/AdvReac Type Severity Reaction Status Date / Time No Known Allergies Allergy Verified 04/07/21 12:47 Active Medications: Current Medications Generic Name Dose Route Start Last Admin Trade Name Freq PRN Reason Stop Dose Admin Sodium Chloride 1,000 mls @ 125 mls/hr 04/07/21 13:00 04/07/21 13:39 Ns IVCONT 125 mls/hr .Q8H LISA Administration Pharmacy Consult 1 each 04/07/21 12:55 Consult Rx Perform Med Rec MISCELLANE ONCE PRN Consult order Home Medications Medication Instructions Recorded Confirmed Last Taken Type multivitamin 1 tab PO DAILY 07/23/20 04/07/21 04/06/21 History cholecalciferol (vitamin D3) 25 25 mcg PO DAILY 08/19/20 04/07/21 04/06/21 History mcg (1,000 unit) capsule sildenafil 1 tab PO DAILY PRN 04/07/21 04/07/21 Unknown History Physical Exam Vital Signs: Vital Signs: Last Vital Signs Temp 98.0 F 04/07/21 13:10 Pulse 62 04/07/21 12:47 Resp 20 04/07/21 12:47 BP 114/76 04/07/21 12:47 Pulse Ox 98 04/07/21 12:47 Body Mass Index 28.5 Const: General: cooperative, healthy appearing, comfortable and no acute distress Orientation/consciousness: patient oriented x3 HENMT: Face and sinus: Yes normal facial exam Mouth: moist mucous membranes Neck: Neck: Yes normal visual inspection, Yes full ROM and Yes trachea midline Chest: Chest palpation & inspection: normal inspection of the chest Resp: Effort & Inspection: normal respiratory effort, able to speak in complete sentences and no respiratory distress GI: Inspection: Yes normal to inspection Back/Spine/Pelvis: Cervical Spine: normal cervical lordosis Thoracic/Lumbar Spine: thoracic and lumbar spine normal to inspection Skin: General skin exam: no rashes or lesions noted Neuro: General: patient oriented x3, gait normal, tone normal and moves all extremities Extrem: General: Yes normal to inspection and Yes capillary refill normal Results Labs Result diagrams: 04/07/21 13:22 04/07/21 13:22 Labs: Abnormal lab results 04/07/21 04/07/21 Range/Units 13:22 13:22 Hct 41.5 L (42-52) % MCV 79.8 L (80-98) fL MCH 26.9 L (27.0-33.0) pg Random Glucose 130 H (60-115) mg/dL Short CBC 04/07/21 Range/Units 13:22 WBC 5.1 (4.8-10.8) X10*3/uL Hgb 14.0 (14.0-18.0) g/dl Hct 41.5 L (42-52) % Plt Count 221 (160-400) X10*3/uL BMP 04/07/21 13:22 Sodium 138 Potassium 4.3 Chloride 104 Carbon Dioxide 23 BUN 14 Creatinine 0.72 Calcium 9.1 Urine 04/07/21 Range/Units 15:01 Urine Color YELLOW Urine Appearance CLEAR Urine pH 7.5 (5.0-8.0) Ur Specific [place] <= 1.005 (1.005-1.025) Urine Protein NEG (NEG-TRACE) MG/DL Urine Glucose (UA) NEG (NEG) MG/DL All other labs normal. Assessment and Plan (1) Ureterolithiasis: Status: Acute Distal left ureteric stone removal Ureteroscopy We discussed the nature of the decision and reasonable alternatives for performing the above surgery. Interventions include chemical dissolution, ESWL, ureteroscopy with laser lithotripsy and stent placement, PCNL. Options such as medical therapy were discussed. The relative uncertainties and benefits related to each alternate procedure were adequately discussed. General surgical risks including, but not limited to, pain, bleeding, infection, myocardial infarction, pulmonary embolus, deep vein thrombosis and cerebrovascular accident which may result in further hospitalization were discussed. Full disclosure of the procedure as well as all major risks, benefits and complications were discussed including but not limited to damage to the urethra, bladder and kidney infection, damage to the ureter, stent migration or malposition, scarring to the renal pelvis, remnant stone fragments, subsequent stone passage with need for secondary procedures. The overall secondary procedure rate is approximately 10-15%. The success rate of the procedure was discussed. Success of the procedure in the short-term does not necessarily guarantee that long-term success will be maintained. Suitable follow up will need to be maintained. The patient showed understanding of discussion and wishes to proceed with - cystoscopy, retrograde, ureteroscopy, possible lithotripsy/stone basketing and stent on the left side Procedures Date of Service Date of Service: 04/07/21
[2021-04-07] MEDS: levoFLOXacin 500 MG TABLET PO (15:55)
--- NOTE | 2021-04-07 16:48 | PC.NURSE ---
pt resting in bed, reporting some anxiety r/t procedure this evening. he reports his pain is creeping back up. pt has family at bedside. they are aware of plan to go to surgery this evening at 2100.
[2021-04-07] MEDS: Ketorolac Tromethamine 30 MG/ML VIAL IVPUSH (17:35)
--- NOTE | 2021-04-07 18:40 | HO.ANESPROP2 ---
[facility] Active Problems Active Problems: All Active Problems (Updated 04/07/21 @ 13:00 by Qi Martino DO) Ureterolithiasis (Acute) Prostatitis (Acute) Urinary frequency (Acute) Low back pain (Acute) Vitamin D deficiency (Acute) Low libido (Acute) Obstructive sleep apnea (Acute) Overweight (BMI 25.0-29.9) (Acute) Anxiety (Acute) Pure hypercholesterolemia (Acute) Degenerative joint disease of right shoulder (Acute) GERD without esophagitis (Acute) AVNRT (AV clint re-entry tachycardia) (Acute) Benign essential hypertension (Acute) Diabetes mellitus (Acute) Past Medical History Medical History Anxiety AVNRT (AV clint re-entry tachycardia) Benign essential hypertension Degenerative joint disease of right shoulder Diabetes mellitus GERD without esophagitis Low back pain Overweight (BMI 25.0-29.9) Pure hypercholesterolemia Urinary frequency Vitamin D deficiency Family History Family History Father Lung cancer Mother Medical history unknown Maternal Grandfather Myocardial infarction Maternal Uncle Myocardial infarction Surgical History Surgical History H/O left knee surgery History of arthroscopy of right shoulder History of nasal surgery Social History Social History Household Members: Significant Other and Children Alcohol intake: never Patient Tobacco Use Status: Former Tobacco user Meds Allergies Allergy/AdvReac Type Severity Reaction Status Date / Time No Known Allergies Allergy Verified 04/07/21 12:47 Home Medications Medication Instructions Recorded Confirmed Last Taken Type multivitamin 1 tab PO DAILY 07/23/20 04/07/21 04/06/21 History cholecalciferol (vitamin D3) 25 25 mcg PO DAILY 08/19/20 04/07/21 04/06/21 History mcg (1,000 unit) capsule sildenafil 1 tab PO DAILY PRN 04/07/21 04/07/21 Unknown History Exam Exam Date and Time: April 07, 2021 1840 Height,Weight and Vital Signs: Height 5 ft 11 in Weight 92.986 kg Last Vital Signs Temp 98.1 F 04/07/21 16:00 Pulse 57 04/07/21 16:00 Resp 16 04/07/21 16:00 BP 99/55 L 04/07/21 16:00 Pulse Ox 99 04/07/21 16:00 Pertinent Lab Results Pertinent Lab Results: Laboratory Tests 04/07/21 04/07/21 04/07/21 13:22 13:22 13:22 WBC 5.1 RBC 5.20 Hgb 14.0 Hct 41.5 L MCV 79.8 L MCH 26.9 L MCHC 33.7 RDW 12.9 Plt Count 221 MPV 9.9 Immature Gran % (Auto) 0.2 Neut % (Auto) 51.6 Lymph % (Auto) 36.9 [place] % (Auto) 8.3 Eos % (Auto) 2.4 Baso % (Auto) 0.6 Lymph # (Auto) 1.9 [place] # (Auto) 0.4 Eos # (Auto) 0.1 Baso # (Auto) 0.0 Abs Immat Gran (auto) 0.01 Absolute Neuts (auto) 2.6 Absolute Nucleated RBC 0.000 Nucleated RBC % (auto) 0.0 PT 11.1 INR 1.0 APTT 32.6 Sodium 138 Potassium 4.3 Chloride 104 Carbon Dioxide 23 Anion Gap 15 BUN 14 Creatinine 0.72 Estim Creat Clear Calc 144.6 Estimated GFR > 60 Random Glucose 130 H Calcium 9.1 Urine Color Urine Appearance Urine pH Ur Specific [place] Urine Protein Urine Glucose (UA) Urine Ketones Urine Blood Urine Nitrite Ur Leukocyte Esterase COVID-19 ([facility]) COVID-19 Clin [facility] 04/07/21 04/07/21 13:22 15:01 WBC RBC Hgb Hct MCV MCH MCHC RDW Plt Count MPV Immature Gran % (Auto) Neut % (Auto) Lymph % (Auto) [place] % (Auto) Eos % (Auto) Baso % (Auto) Lymph # (Auto) [place] # (Auto) Eos # (Auto) Baso # (Auto) Abs Immat Gran (auto) Absolute Neuts (auto) Absolute Nucleated RBC Nucleated RBC % (auto) PT INR APTT Sodium Potassium Chloride Carbon Dioxide Anion Gap BUN Creatinine Estim Creat Clear Calc Estimated GFR Random Glucose Calcium Urine Color YELLOW Urine Appearance CLEAR Urine pH 7.5 Ur Specific [place] <= 1.005 Urine Protein NEG Urine Glucose (UA) NEG Urine Ketones NEG Urine Blood NEG Urine Nitrite NEG Ur Leukocyte Esterase NEG COVID-19 ([facility]) Negative COVID-19 Clin Com See Note Airway Mallampati Class: IV TM Dist: >3cm Neck ROM: Full Heart: RRR Lungs: CTA
--- NOTE | 2021-04-07 19:40 | MHC.SHP ---
Pre-Procedural Eval Section A Date of Service: 04/07/21 The patient is an INPATIENT: No Changes since office visit: No Cold of Flu in the past 2 weeks, No New Medical Problems, No Changes in Medication and No Patient answered all questions The History & Physical has been completed within 30 days and I have reviewed it.: Yes Section B Chief Complaint: Kidney stones Allergies: Allergies Allergy/AdvReac Type Severity Reaction Status Date / Time No Known Allergies Allergy Verified 04/07/21 12:47 Plan Diagnosis/Plan: Unchanged (Cystoscopy, left retrograde, left ureteroscopy, laser lithotripsy stent placement) I have reviewed the history and physical and performed a pertinent physical examination on my patient. No changes have occurred unless specified.
--- NOTE | 2021-04-07 21:14 | P.OP_ITS ---
Operative Note Operative Note Date of Service: 04/07/21 Narrative: PreOperative Diagnosis: Left distal ureteric stone Post Operative Diagnosis: left distal ureteric stone Procedure: - cystoscopy, retrograde - ureteroscopy, laser lithotripsy, stone basketing - stent placement Surgeon: Dr Darin Liao Anesthesia: General Indications for procedure: 50-year-old male. Admitted through emergency room with persistent left flank pain. CT scan from 2 days ago with 6 mm distal left ureteric stone and hydroureter nephrosis. Recommend intervention with ureteroscopy and laser lithotripsy given stone location Procedure: After informed consent was verified patient was brought to the operating placed in supine position. Anesthesia was administered per protocol. Patient was placed in modified dorsal lithotomy position and prepped and draped in a sterile fashion. Safety pause time-out and side of surgery confirmed. Antibiotics confirmed. 22 [place] cystoscope inserted per urethra. There were 2 annular strictures that were dilated with passage of the scope. The bladder was entered. Ureteric orifice in normal position. Left ureteric orifice cannulated retrograde examination performed. Filling defects seen within bottom 2 in of left ureter. Sensor guidewire placed level renal pelvis. Rigid ureteral scope placed. Stone encountered. Stone broken into small pieces using laser. Stone fragments were basketed out of distal portion of the ureter. Multiple passes were performed. Stone sample sent for pathology Six [place] by 26 cm double-J stent placed without difficulty after wire was backloaded through regular cystoscope. He tolerated procedure well was extubated in operating room transferred in stable condition to the recovery area. Pathology: Stone Drains: 6 [place] by 26 cm double-J stent
[2021-04-07] MEDS: Phenazopyridine HCL 100 MG TABLET PO (21:42)
[2021-04-07] MEDS: traMADoL HCL 50 MG TABLET PO (21:43)
--- NOTE | 2021-04-07 23:47 | HO.POSTANES ---
Post Anesthesia Evaluation Post Anesthesia Evaluation Vital Signs: Vital Signs Temp Pulse Resp BP Pulse Ox 04/07/21 22:55 16 95 04/07/21 22:01 79 18 115/72 92 04/07/21 21:46 80 18 89 L 04/07/21 21:41 86 18 116/73 93 04/07/21 21:36 80 18 115/70 93 04/07/21 21:31 82 16 106/85 97 04/07/21 21:26 97.3 F 83 16 127/79 90 L 04/07/21 16:00 98.1 F 57 16 99/55 L 99 04/07/21 15:56 56 16 122/70 96 04/07/21 13:10 98.0 F 04/07/21 12:47 62 20 114/76 98 Anesthesia: Monitored Mental Status: Awake Pain Control: Satisfactory Nausea/Vomiting: None Hydration: Adequate Anesthesia-Related Issues: No Anes. Related Issues
[2021-04-12 20:12] LABS: Stone Source LEFT URETERAL STONE
[2021-04-14 08:42] LABS: Glucose, Whole Blood 112 mg/dL (60-115)
== END 2021-04-07 22:56 | disposition home or self-care (01) ==
LOC: HO.ED 15:34 → HO.SSS 04-08 09:02
PROVIDERS: Urology; PCP Internal Medicine; Visit Provider Emergency Medicine
PROC: (CPT 52356; principal; 2021-04-07 17:30)
DX: N20.1 Calculus of ureter (principal); R35.0 Frequency of micturition; I47.1 Supraventricular tachycardia; I10 Essential (primary) hypertension; E11.9 Type 2 diabetes mellitus without complications; E55.9 Vitamin D deficiency, unspecified; Z87.891 Personal history of nicotine dependence; Z79.899 Other long term (current) drug therapy; Z20.822 Contact with and (suspected) exposure to COVID-19
CPT/HCPCS: 52356; 52352; 36415; 80048; 81003; 82365; 82947; 85025; 85610; 85730; 87635; 88300; 93005; 96361; 96374; 96375; 96376; 99285; C1769; C2617; J0330; J1885; J2060; J2250; J2270; J2405; Q9967

== ENCOUNTER → 2021-04-23 11:42 | Outpatient (BNVA) | payer OTHER, SELFPAY | PROVIDERS: PCP Internal Medicine; Referring Provider Internal Medicine; Visit Provider Nurse Practitioner Family | DX: Z48.816 Encounter for surgical aftercare following surgery on the genitourinary system (principal); N41.9 Inflammatory disease of prostate, unspecified; Z96.0 Presence of urogenital implants; Z87.442 Personal history of urinary calculi | CPT/HCPCS: 52310 ==

== ENCOUNTER 2021-06-11 15:21 | Outpatient (REF) | payer OTHER, SELFPAY ==
--- NOTE | ~2021-06-11 | US_ITS ---
EXAMINATION: US RETROPERITONEAL LIMITED (RENAL ONLY) CLINICAL INFORMATION: Calculus of kidney. COMPARISON: CT abdomen and pelvis 04/04/2021. TECHNIQUE: Real-time imaging of the kidneys. FINDINGS: RIGHT KIDNEY: 11.7 x 6.7 x 6.1 cm (SAG x AP x TRV). The kidney is normal in size, contour, and echogenicity. Renal cortical thickness is normal. No calculi or focal parenchymal lesions. No hydronephrosis. LEFT KIDNEY: 13.2 x 5.6 x 5.4 cm (SAG x AP x TRV). The kidney is normal in size, contour, and echogenicity. Renal cortical thickness is normal. No calculi or focal parenchymal lesions. No hydronephrosis. US/US renal BI IMPRESSION: Normal renal ultrasound.
== END 2021-06-11 15:22 | disposition home or self-care (01) ==
LOC: HO.HMGCX 15:21
PROVIDERS: PCP Internal Medicine; Visit Provider Urology
DX: N20.0 Calculus of kidney (principal)
CPT/HCPCS: 76775

== ENCOUNTER → 2021-06-13 09:44 | Outpatient (BNVA) | payer OTHER, SELFPAY | PROVIDERS: PCP Internal Medicine; Visit Provider Urology ==

== ENCOUNTER 2021-06-16 10:29 | Day surgery (SDC) | payer OTHER, SELFPAY ==
--- NOTE | 2021-06-12 14:57 | HO.ANESPROP2 ---
Documented by User: Sugey Cantor NP 06/12/21 15:03 HPI - Anesthesia Eval Consult details Narrative: 51yo M for Upper Endoscopy and Colonoscopy s/p cysto,etc 03/2021 with GA-ETT 7.5 H/O of DI PMFSH Active Problems Active Problems: All Active Problems (Updated 06/11/21 @ 08:26 by Jazmin Escamilla, RN) Obstructive sleep apnea (Acute) Low libido (Acute) Prostatitis (Acute) Nephrolithiasis (Acute) Urinary frequency (Acute) Low back pain (Acute) Vitamin D deficiency (Acute) Overweight (BMI 25.0-29.9) (Acute) Anxiety (Acute) Pure hypercholesterolemia (Acute) Degenerative joint disease of right shoulder (Acute) GERD without esophagitis (Acute) AVNRT (AV clint re-entry tachycardia) (Acute) Benign essential hypertension (Acute) Diabetes mellitus (Acute) Past Medical History Medical History (Updated 06/13/21 @ 13:38 by Leyla Pringle RN) Anxiety AVNRT (AV clint re-entry tachycardia) Benign essential hypertension Bilateral kidney stones Degenerative joint disease of right shoulder Diabetes mellitus Difficult airway for intubation GERD without esophagitis History of obstructive sleep apnea Low back pain On beta jany at home Overweight (BMI 25.0-29.9) Pure hypercholesterolemia Urinary frequency Vitamin D deficiency Family History Family History Father Lung cancer Mother Medical history unknown Maternal Grandfather Myocardial infarction Maternal Uncle Myocardial infarction Surgical History Surgical History (Updated 06/11/21 @ 08:18 by Jazmin Escamilla RN) H/O left knee surgery History of arthroscopy of right shoulder History of cystoscopy History of nasal surgery Social History Social History Household Members: Significant Other and Children Housing: House Alcohol intake: current Alcohol intake frequency: holidays/special occasions only Patient Tobacco Use Status: Former Tobacco user Second Hand Smoke Exposure: Yes Advance Directives: No Advance Directives Information Provided: Yes service: No Current occupational status: employed Meds Allergies Allergy/AdvReac Type Severity Reaction Status Date / Time No Known Allergies Allergy Verified 06/13/21 09:45 Home Medications Medication Instructions Recorded Confirmed Last Taken Type multivitamin 1 tab PO DAILY 07/23/20 06/11/21 04/06/21 History cholecalciferol (vitamin D3) 25 25 mcg PO DAILY 08/19/20 06/11/21 04/06/21 History mcg (1,000 unit) capsule sildenafil 50 mg tablet 1 tab PO DAILY PRN 04/07/21 06/11/21 Unknown History Bacillus coagulans 10 billion cell 10,000,000,000 cell PO DAILY 06/13/21 Unknown History capsule,delayed release (Probiotic (B. coagulans)) Exam Exam Date and Time: June 12, 2021 1457 Pertinent Lab Results Pertinent Lab Results: Laboratory Tests 04/07/21 04/07/21 13:22 13:22 WBC 5.1 Hgb 14.0 Hct 41.5 L Plt Count 221 Sodium 138 Potassium 4.3 Chloride 104 Carbon Dioxide 23 BUN 14 Creatinine 0.72 Narrative Narrative: EKG 03/2021 Vent. Rate : 056 BPM ? ? Atrial Rate : 056 BPM ?? P-R Int : 160 ms? QRS Dur : 098 ms ? ? QT Int : 440 ms ? ? ? P-R-T Axes : 049 -17 014 degrees ?? QTc Int : 424 ms ? Sinus bradycardia Normal ECG When compared with ECG of 04-APR-2021 17:02, No significant change was found Assessment and Plan Assessment Anesthesia Assessment: Chart Reviewed Documented by User: Stormy Veliz MD 06/16/21 10:52 [facility] Past Medical History Medical History (Updated 06/13/21 @ 13:38 by Leyla Pringle RN) Anxiety AVNRT (AV clint re-entry tachycardia) Benign essential hypertension Bilateral kidney stones Degenerative joint disease of right shoulder Diabetes mellitus Difficult airway for intubation GERD without esophagitis History of obstructive sleep apnea Low back pain On beta jany at home Overweight (BMI 25.0-29.9) Pure hypercholesterolemia Urinary frequency Vitamin D deficiency Family History Family History Father Lung cancer Mother Medical history unknown Maternal Grandfather Myocardial infarction Maternal Uncle Myocardial infarction Family history of problems with anesthesia: No Surgical History Surgical History (Updated 06/11/21 @ 08:18 by Jazmin Escamilla RN) H/O left knee surgery History of arthroscopy of right shoulder History of cystoscopy History of nasal surgery History of Problems with Anesthesia: No Social History Social History Household Members: Significant Other and Children Housing: House Alcohol intake: current Alcohol intake frequency: holidays/special occasions only Patient Tobacco Use Status: Former Tobacco user Second Hand Smoke Exposure: Yes Advance Directives: No Advance Directives Information Provided: Yes service: No Current occupational status: employed Meds Allergies Allergy/AdvReac Type Severity Reaction Status Date / Time No Known Allergies Allergy Verified 06/13/21 09:45 Home Medications Medication Instructions Recorded Confirmed Last Taken Type multivitamin 1 tab PO DAILY 07/23/20 06/11/21 04/06/21 History cholecalciferol (vitamin D3) 25 25 mcg PO DAILY 08/19/20 06/11/21 04/06/21 History mcg (1,000 unit) capsule sildenafil 50 mg tablet 1 tab PO DAILY PRN 04/07/21 06/11/21 Unknown History Bacillus coagulans 10 billion cell 10,000,000,000 cell PO DAILY 06/13/21 Unknown History capsule,delayed release (Probiotic (B. coagulans)) Exam Airway Mallampati Class: II (Two implants laterally) TM Dist: >3cm Neck ROM: Full Heart: rrr Lungs: cta Assessment and Plan Assessment Anesthesia Assessment: Anesthesia Plan Discussed and Chart Reviewed Final Anesthetic Review Family History of Problems with Anesthesia: No History of Problems with Anesthesia: No NPO: Yes ASA Class: II Final Preanesthetic Review: No Changes in Pt Med Stat and Consent Obtained/Reviewed Patient Risk: Intermediate Procedure Risk: Intermediate Anesthetic Plan Anesthetic Plan: MAC: Disposition: Standard PACU
--- NOTE | 2021-06-16 10:40 | MHC.SHP ---
Pre-Procedural Eval Section A Date of Service: 06/16/21 Section B Chief Complaint: Screening, Gerd Relevant Family History (Specify if Yes): No Relevant Social History: None Present Medications: see Short Stay Collaborative assessment Medical History: Significant History (Anxiety AVNRT (AV clint re-entry tachycardia) Benign essential hypertension Bilateral kidney stones Degenerative joint disease of right shoulder Diabetes mellitus Difficult airway for intubation GERD without esophagitis Low back pain On beta jany at home Overweight (BMI 25.0-29.9) Pure hyperchole) History of Previous Operations: Relevant previous surgery/procedure and date(s) (H/O left knee surgery History of arthroscopy of right shoulder History of cystoscopy History of nasal surgery) Allergies: Allergies Allergy/AdvReac Type Severity Reaction Status Date / Time No Known Allergies Allergy Verified 06/13/21 09:45 Review of Systems Sugical H&P ROS: Negative: Constitution, Cardiovascular, Respiratory, Neurological, Psychiatric, Hem-Onc, Allergic/Immunologic, Gastrointestinal, Genitourinary, Musculoskeletal, Integumentary, Endocrine and Eyes/Ears/Nose/Throat Exam Surgical H&P Exam: Normal: HEENT, Normal: Heart, Normal: Lungs, Normal: Extremities, Normal: Abdomen, Normal: Skin and Normal: Neurological Plan Diagnosis/Plan: Unchanged I have reviewed the history and physical and performed a pertinent physical examination on my patient. No changes have occurred unless specified.
[2021-06-16 10:56] VITALS: BP 116/76; PULSE 73; RESP 18; TEMP 36.3; O2SAT 96; BMI 27.8
[2021-06-16 11:07] LABS: Glucose, Whole Blood 133 mg/dL (60-115)
--- NOTE | 2021-06-16 11:13 | P.BOP_ITS ---
Brief Operative Note Date of Service: 06/16/21 Pre-op diagnosis: GERD, colon screening Post-op diagnosis: same Procedure: see op note Surgeon: Silvio Britton MD Anesthesia: MAC Was an Telecommunications Field Technician used for this Procedure?: No Estimated blood loss (mL): 0 Condition: stable Disposition: PACU
--- NOTE | 2021-06-16 11:14 | P.OP_ITS ---
Operative Note Operative Note Date of Service: 06/16/21 Narrative: Operative Information Procedure Description: EGD, Colonoscopy FLEXIBLE TRANSORAL UPPER GASTROINTESTINAL ENDOSCOPY AND COLONOSCOPY PROCEDURE NOTE UPPER ENDOSCOPY Consent: Indications for the procedure and potential complications of bleeding, perforation, reaction to medications and missed diagnosis were discussed with the patient and informed consent was obtained. Instrument: Olympus GIF H 190 J mid size upper endoscope Monitoring: Vital signs and clinical assessment, continuous EKG monitoring, Pulse oximetry, Carbon Dioxide monitoring and blood pressure monitoring were done throughout the procedure. Procedure: The patient was placed in the left lateral decubitis position and pre-procedure medications were administered and a bite block was placed. The endoscope was inserted into the mouth and advanced under direct vision to the third part of duodenum. A careful inspection was made as the upper endoscope was withdrawn including a retroflexed examination of the proximal stomach; Findings and interventions are described below. Findings: Larynx:normal Esophagus: GE junction at 36 cm, diaphragm hiatus at 40 cm, mild esophagitis, 4-5 cm sliding hiatal hernia noted Stomach: Erythema and edema at antrum. Biopsies were obtained. Grade 2 flap valve on retroflexed examination of the cardia. Duodenum: Normal bulb and descending duodenum, Intervention: Biopsies as noted above COLONOSCOPY Instrument: Olympus variable stiffness adult scope 190L Colonoscopy Monitoring: Vital signs and clinical assessment, continuous EKG monitoring, Pulse oximetry, Carbon Dioxide monitoring and blood pressure monitoring were done throughout the procedure. Colon withdrawal time was 11 minutes. Procedure: The patient was placed in the left lateral decubitis position and pre-procedure medications were administered. After a digital rectal examination of the ano-rectum, the video colonoscope was inserted into the rectum and advanced through the colon to the cecum/TI. The colonoscope was slowly withdrawn in a retrograde panoramic fashion and the colon mucosa was carefully examined including a retroflexed view of the rectum. Findings and interventions are described below. Procedure Difficulty: easy Findings: Terminal Ileum-normal Cecum:normal Ascending Colon: normal Transverse Colon -normal Descending Colon:normal Sigmoid Colon: normal Rectum: Retroflexion with small internal hemorrhoids, grade I Anorectum - normal Colon preparation: [place] Bowel Preparation Scale Right colon; 2 Transverse colon: 1 Left colon; 1 (0 = Unprepared colon segment with mucosa not seen due to solid stool that cannot be cleared. 1 = Portion of mucosa of the colon segment seen, but other areas of the colon segment not well seen due to staining, residual stool and/or opaque liquid. 2 = Minor amount of residual staining, small fragments of stool and/or opaque liquid, but mucosa of colon segment seen well. 3 = Entire mucosa of colon segment seen well with no residual staining, small fragments of stool or opaque liquid) Impression and Post Procedure Diagnosis: Endoscopy Findings: hiatal hernia gastritis esophagitis Colonoscopy Findings: internal hemorrhoids poor prep Plan: Await Pathology results Repeat Colonoscopy in 6-12 months due to poor prep or earlier if clinically indicated. Review prep with patient again and ensure compliance. High fiber diet leaflet avoid straining at stool, epsom salts and sitz bath, anusol supps or cream GERD precautions, consider surgical referral for hiatal hernia repair Above findings were reviewed with the patient and relevant handouts were provided if indicated.
[2021-06-16] MEDS: Lactated Ringers 1,000 ML 100 ML IVCONT (11:20)
[2021-06-16 11:57] VITALS: BP 105/64; PULSE 80; RESP 16; TEMP 36.3; O2SAT 94
[2021-06-16 12:12] VITALS: BP 107/64; PULSE 70; RESP 16; O2SAT 96
== END 2021-06-16 12:52 | disposition home or self-care (01) ==
PROVIDERS: PCP Internal Medicine; Visit Provider Internal Medicine Gastroenterology
PROC: (CPT 45378; principal; 2021-06-16 12:20)
DX: Z12.11 Encounter for screening for malignant neoplasm of colon (principal); K64.0 First degree hemorrhoids; K21.00 Gastro-esophageal reflux disease with esophagitis, without bleeding; K29.70 Gastritis, unspecified, without bleeding; K44.9 Diaphragmatic hernia without obstruction or gangrene; K58.2 Mixed irritable bowel syndrome; I10 Essential (primary) hypertension; E11.9 Type 2 diabetes mellitus without complications
CPT/HCPCS: 45378; 43239; 82947; 88305; 88342; J2250

== ENCOUNTER → 2021-07-01 09:13 | Outpatient (BNVA) | payer OTHER, SELFPAY | PROVIDERS: PCP Internal Medicine; Visit Provider Nurse Practitioner Family ==

== ENCOUNTER → 2021-07-17 14:23 | Outpatient (BNVA) | payer OTHER, SELFPAY | PROVIDERS: PCP Internal Medicine; Referring Provider Internal Medicine; Visit Provider Internal Medicine Cardiovascular Disease ==

== ENCOUNTER → 2021-08-08 10:52 | Outpatient (BNVA) | payer OTHER, SELFPAY | PROVIDERS: PCP Internal Medicine; Visit Provider Surgery | DX: K44.9 Diaphragmatic hernia without obstruction or gangrene (principal); K22.70 Barrett's esophagus without dysplasia; G47.33 Obstructive sleep apnea (adult) (pediatric); K21.9 Gastro-esophageal reflux disease without esophagitis; E11.9 Type 2 diabetes mellitus without complications; Z79.899 Other long term (current) drug therapy; Z79.84 Long term (current) use of oral hypoglycemic drugs | CPT/HCPCS: 99212 ==

== ENCOUNTER → 2021-08-11 14:13 | Outpatient (BNVA) | payer OTHER, SELFPAY | PROVIDERS: PCP Internal Medicine; Visit Provider Internal Medicine ==

== ENCOUNTER 2021-11-13 15:13 | Outpatient (REF) | payer OTHER, SELFPAY ==
--- NOTE | ~2021-11-13 | US_ITS ---
EXAMINATION: US RETROPERITONEAL LIMITED (RENAL ONLY) CLINICAL INFORMATION: Calculus of kidney. COMPARISON: Ultrasound of kidneys 06/11/2021. CT abdomen and pelvis 04/04/2021. TECHNIQUE: Real-time imaging of the kidneys. FINDINGS: RIGHT KIDNEY: 11.3 x 6.5 x 6.1 cm (SAG x AP x TRV). The kidney is normal in size, contour, and echogenicity. Renal cortical thickness is normal. No calculi or focal parenchymal lesions. No hydronephrosis. LEFT KIDNEY: 12.7 x 5.6 x 4.8 cm (SAG x AP x TRV). The kidney is normal in size, contour, and echogenicity. Renal cortical thickness is normal. No calculi or focal parenchymal lesions. No hydronephrosis. US/US renal BI IMPRESSION: Normal renal ultrasound.
== END 2021-11-13 15:14 | disposition home or self-care (01) ==
LOC: HO.HMGCX 15:13
PROVIDERS: Visit Provider Urology
DX: N20.0 Calculus of kidney (principal)
CPT/HCPCS: 76775

== ENCOUNTER 2021-11-27 07:20 | Outpatient (REF) | payer OTHER, SELFPAY ==
[2021-11-27 07:42] LABS: MANUAL DIFF FLAG NO
[2021-11-27 08:17] LABS: Basophils Percent Auto 0.8 % (0-2); Eosinophils Absolute Auto 0.1 X10*3/uL (0.0-0.4); Hematocrit 43.4 % (42.0-52.0); Hemoglobin 14.6 g/dl (14.0-18.0); Imm Gran Abs Auto 0.01 X10*3/uL (0.00-0.03); Imm Gran Pct Auto 0.2 % (0.0-0.4); Lymphocytes Absolute Auto 1.7 X10*3/uL (1.2-4.9); Lymphocytes Percent Auto 35.4 % (20-40); Mean Corpuscular HGB Conc 33.6 g/dl (31.0-36.0); Mean Corpuscular Hemoglobin 27.2 pg (27.0-33.0); Mean Platelet Volume 9.7 fL (9.4-12.4); Monocytes Absolute Auto 0.4 X10*3/uL (0.1-1.2); Monocytes Percent Auto 7.7 % (2-11); Neutrophils Absolute Auto 2.6 x10*3/uL (2.0-8.3); Neutrophils Percent Auto 53.9 % (45-73); Platelet Count 243 X10*3/uL (160-400); Red Blood Count 5.36 X10*6/uL (4.60-5.80); Red Cell Distribution Width 13.2 % (11.0-16.0); White Blood Count 4.9 X10*3/uL (4.8-10.8)
[2021-11-27 08:34] LABS: Estimated Average Glucose 146 mg/dL; Hemoglobin A1c % 6.7 %
[2021-11-27 08:43] LABS: Alanine Aminotransferase 67 U/L (0-40); Albumin Level 4.4 g/dL (3.5-5.0); Alkaline Phosphatase 57 U/L (39-117); Anion Gap 13 (12-20); Aspartate Amino Transferase 32 U/L (5-37); Bilirubin Total 0.6 mg/dL (0.0-1.0); Blood Urea Nitrogen 20 mg/dL (9-16); Calcium 9.5 mg/dL (8.4-10.2); Carbon Dioxide 27 mmol/L (22-29); Chloride 104 mmol/L (96-108); Cholesterol 157 mg/dL; Estimated Glomerular Filt Rate > 60; Glucose Fasting 161 mg/dL (60-99); HDL Cholesterol 31 mg/dL; LDL Cholesterol Calculated 72 mg/dl; Potassium 4.6 mmol/L (3.3-5.1); Sodium 139 mmol/L (135-145); Total Protein 7.2 g/dL (6.5-8.0); Triglycerides 272 mg/dL
[2021-11-27 09:04] LABS: TSH reflex Free T4 1.13 uIU/mL (0.32-4.0); Vitamin D 25-OH Total 41.9 ng/mL (>30)
== END 2021-11-27 07:21 | disposition home or self-care (01) ==
LOC: HO.LAB 07:20
PROVIDERS: PCP Internal Medicine; Visit Provider Internal Medicine
DX: E11.9 Type 2 diabetes mellitus without complications (principal); I10 Essential (primary) hypertension; E78.00 Pure hypercholesterolemia, unspecified; E55.9 Vitamin D deficiency, unspecified
CPT/HCPCS: 36415; 80053; 80061; 82306; 83036; 84443; 85025

== ENCOUNTER → 2021-12-02 15:09 | Outpatient (BNVA) | payer OTHER, SELFPAY | PROVIDERS: PCP Internal Medicine; Visit Provider Internal Medicine ==

== ENCOUNTER 2021-12-18 08:50 | Outpatient (REF) | payer OTHER, SELFPAY ==
--- NOTE | ~2021-12-18 | FL_ITS ---
EXAMINATION: FL BARIUM SWALLOW CLINICAL INFORMATION: Diaphragmatic hernia without obstruction or gangrene. COMPARISON: None TECHNIQUE: Barium swallow examination is performed using fluoroscopic evaluation in addition to multiple fluoroscopic spot views. The patient is imaged both upright and prone and using both thick and thin sulfate along with effervescent granules. Fluoroscopy time: 2.2 minutes DAP: 21.642 Gycm2 Images: 55 FINDINGS: Following oral administration of thick barium and barium-coated turkey in upright view, there is normal propagated bolus from the oral cavity through the pharynx, esophagus into stomach without any evidence of obstruction, narrowing, or stricture. On placing patient prone, an oral administration of thin barium, there is good distention of the esophagus without any intraluminal filling defect or narrowing. There is a small sliding hiatal hernia with mild gastroesophageal reflux. FL/FL barium swallow IMPRESSION: Small sliding hiatal hernia with mild gastroesophageal reflux.
== END 2021-12-18 08:51 | disposition home or self-care (01) ==
LOC: HO.XRAY 08:50
PROVIDERS: PCP Internal Medicine; Visit Provider Surgery
DX: K44.9 Diaphragmatic hernia without obstruction or gangrene (principal)
CPT/HCPCS: 74220

== ENCOUNTER → 2022-01-02 11:12 | Outpatient (BNVA) | payer OTHER, SELFPAY | PROVIDERS: PCP Internal Medicine; Visit Provider Surgery | DX: K21.9 Gastro-esophageal reflux disease without esophagitis (principal); K44.9 Diaphragmatic hernia without obstruction or gangrene | CPT/HCPCS: Q3014 ==

== ENCOUNTER 2022-01-08 08:18 | Outpatient (REF) | payer OTHER, SELFPAY ==
--- NOTE | ~2022-01-08 | XR_ITS ---
EXAMINATION: XR SHOULDER, LEFT CLINICAL INFORMATION: Pain. COMPARISON: Radiograph of the right shoulder dated from 08/01/2014. TECHNIQUE: Three views of the left shoulder. FINDINGS: The bones and soft tissues are normal. No fracture. Glenohumeral and acromioclavicular alignment is anatomic with normal joint space. No abnormal soft tissue calcifications. XR/XR shoulder LT min 2V IMPRESSION: Normal left shoulder.
== END 2022-01-08 08:19 | disposition home or self-care (01) ==
LOC: HO.HOSX 08:18
PROVIDERS: Visit Provider Physician Assistant
DX: M75.82 Other shoulder lesions, left shoulder (principal)
CPT/HCPCS: 20610; 73030; J1020

== ENCOUNTER → 2022-01-14 13:48 | Outpatient (REF) | payer OTHER, SELFPAY ==
--- NOTE | 2022-01-14 13:50 | CA_ITS ---
Transthoracic Echocardiogram Patient (Last, First, Middle): Fredrick Carney R Gender: Male Date of : 1970 Age: 51 Procedure Date: 01/14/2022 Procedure Type: Transthoracic Echocardiogram Location: OP Height: 180.34 cm Weight: 92.99 kg BSA: 2.13 m2 Heart Rate: bpm BP: 116 / 74 mmHg Liquid Sugar Fortifier: YR/TO Referring MD: Wagner Kirby MD [employer] Installations Mechanic: Wagner Kirby MD Symptoms: R06.02 - Shortness of breath Study Quality: Fair ECG Rhythm: Sinus Conclusions: - Essentially normal study Findings Left Ventricle Normal left ventricular size, thickness, and systolic function. The visually estimated ejection fraction is between 55-60%. Spectral Doppler is indicative of a normal filling pattern. Right Ventricle Normal right ventricular cavity size and systolic function. Atria Both atria are normal in size. Aortic Valve Normal aortic valve structure and function. There is no aortic valve stenosis. There is no aortic valve regurgitation. Mitral Valve Normal mitral valve structure and function. There is trace mitral valve regurgitation. There is no mitral valve stenosis. Pulmonic Valve The pulmonic valve was not well visualized. Tricuspid Valve The right ventricular systolic pressure is normal. Normal right atrial pressure. There is no evidence of pulmonary hypertension. Great Vessels All visible segments of the aorta are normal in size. The pulmonary artery was not well visualized. Venous The inferior vena cava is normal in size and collapses greater than 50% with inspiration. Pericardium/Pleural There is no evidence of pericardial effusion. Measurements 2D Linear Measurements IVSd: 1.10 0.6-0.9/0.6-1.0 cm LVIDd: 4.79 3.9-5.3/4.2-5.9 cm LVIDd Index: 2.25 2.4-3.2/2.2-3.1 cm/m2 LVIDs: 2.98 2.0-3.6 cm LVPWd: 1.11 0.7-1.1 cm LA Diam: 3.50 2.7-3.8/3.0-4.0 cm LAIDs Index: 1.64 1.5-2.3 cm/m2 LV Mass: 242.42 67-162/88-224 g LV Mass Index: 113.81 43-95/49-115 g/m2 LVOT Diam: 2.30 3.0+(-)1.3 cm 2D Systolic Function EF 4C: 55.40 >55% EF 2C: 53.20 >55% Mitral Valve MV Pk E: 0.63 MV PK A: 0.57 MV Decel Time: 179.00 E/A: 1.10 E'Lateral: 8.27 E'Medial: 7.72 E/E' Med: 8.20 E/E' Lat: 7.70 PHT: 52.00 MVA PHT: 4.23 Decel [place]: 3.54 Aortic Valve AoV Pk Sergio: 1.09 AoV Mn Sergio: 0.76 AoV VTI: 0.22 AoV Pk Grad: 5.00 Aov Mn Grad: 3.00 SUZANNE Cont.VTI: 3.30 LVOT LVOT Pk Sergio: 0.83 LVOT Mn Sergio: 0.54 LVOT VTI: 0.17 LVOT Pk Grad: 3.00 LVOT Mn Grad: 1.00 LVOT Diam: 2.30 LVOT Area: 4.15 Diastolic Function MV Pk E: 0.63 MV Pk A: 0.57 E/A: 1.10 E'Medial: 7.72 E/E' Med: 8.20 E' Laterial: 8.27 E/E' Lat: 7.70 Right Ventricle TAPSE (mm): 19.40 TVS' Sergio: 9.36 Tricuspid Valve TR Pk Sergio: 1.87 TR Pk Grad: 14.00 RA Press: 3.00 RVSP: 17.00 Great Vessels Aorta Sinus of Valsalva: 3.90 2.0-3.[address] [place]: 2.74 1.7-3.4 cm Ao Asc: 3.40 2.1-3.4 cm Ao Arch: 3.00 Updated in Other Vendor System with Status of Final Wagner Kirby MD electronically signed on 01/15/2022 11:32:59 AM with status of Final
== END ==
LOC: HO.CARD 13:48
PROVIDERS: PCP Internal Medicine; Visit Provider Internal Medicine Cardiovascular Disease
DX: R06.02 Shortness of breath (principal)
CPT/HCPCS: 93306

== ENCOUNTER 2022-01-28 15:41 | Outpatient (REF) | payer OTHER, SELFPAY ==
--- NOTE | ~2022-01-28 | MR_ITS ---
EXAMINATION: MR SHOULDER WITHOUT CONTRAST, LEFT CLINICAL INFORMATION: Left shoulder pain and numbness. Pain with movement. Unable to bear weight. COMPARISON: Left shoulder radiographs dated 01/08/2022. TECHNIQUE: Multisequence MR imaging of the left shoulder was obtained without contrast on a high-field strength scanner. FINDINGS: ROTATOR CUFF: No measurable rotator cuff tendon tear. No muscle atrophy or fatty infiltration. BICEPS: Normal. CORACOACROMIAL ARCH: The undersurface of the acromion is curved with small subacromial spurs. Mild acromioclavicular osteoarthritis. Fluid within the subacromial-subdeltoid bursa, consistent with bursitis. LABRUM/CAPSULE: No displaced labral tear. Intact joint capsule. GLENOHUMERAL JOINT/MARROW: Normal. MR/MR shoulder LT wo con IMPRESSION: Mild acromioclavicular osteoarthritis with small subacromial spurs. Mild subacromial-subdeltoid bursitis. No measurable rotator cuff tendon tear.
== END 2022-01-28 15:42 | disposition home or self-care (01) ==
LOC: HO.MRI 15:41
PROVIDERS: PCP Internal Medicine; Visit Provider Physician Assistant
DX: S46.002A Unspecified injury of muscle(s) and tendon(s) of the rotator cuff of left shoulder, initial encounter (principal)
CPT/HCPCS: 73221

== ENCOUNTER → 2022-02-09 14:46 | Outpatient (BNVA) | payer OTHER, SELFPAY | PROVIDERS: PCP Internal Medicine; Visit Provider Orthopaedic Surgery | DX: M75.22 Bicipital tendinitis, left shoulder (principal) ==

== ENCOUNTER 2022-03-05 15:00 | Outpatient (RCR) | payer OTHER, SELFPAY ==
--- NOTE | 2022-02-18 13:33 | MHC.OT.EP ---
[address] [phone] Occupational Therapy Plan of Care Date of Evaluation: 02/17/22 Diagnosis: Left proximal biceps tendinitis and subscapularis strain Assessment: 51 yo right hand dominant male presents with worsening left shoulder pain over the past few months. He has been seen at [facility] and received cortisone injection with very brief relief but was concerned with elevated blood sugars. MRI (+) subacromial spurs, mild AC OA and bursitis; no RTC tear. On assessment, he has decreased shoulder ROM in all planes and sharp pain and tenderness in proximal biceps and subacromial space. (+) Speeds Test and Belly Press Test consistent w/ biceps tendinitis and subscapularis strain. He will benefit from cont'd therapy services to address pain and inflammation and progress range and strengthening with goal of full functional range and use of left arm. Frequency and Duration: The patient will be seen 2x/wk for 4-6 weeks Short Term Goals: Ind w/ AAROM HEP to left shoulder Ind w/ joint protection/activity modification techniques Ind w/ use of ice and heat appropriately for pain/inflammation management and soft tissue prep AAROM left shoulder to 140 flex AAROM ext rot to 60 AAROM int rot to 60 Pt to report relief of nighttime pain and numbness [facility] Goals: Pt to demo reach around to back w/ ease in simulation of washing back/using towel AROM left shoulder to 160 w/ ease Pt to progress to functional lift and carry w/ 30lb weighted boxes Pain free left shoulder w/ moderate daily activities Pt to complete light overhead lift and transfer of 5lb weighted object Treatment Plan: Therapeutic Exercise Therapeutic Activity Home Exercise Program Patient Education Edema Control ADL Training Ultrasound Iontophoresis MHP Cold Packs Soft Tissue Mobilization Kinesiotaping Dexamethasone Electronically Signed By: Makenzie Olvera OTR/Kurt CHT Please Sign and return to therapist. Thank you once again for your referral.
--- NOTE | 2022-03-17 08:05 | MHC.OT.DC ---
[address] [phone] F: [phone] Occupational Therapy Discharge Note Provider: Dr Chery Diagnosis: Left proximal biceps tendinitis and subscapularis strain Date of Evaluation: 02/17/22 Date of Discharge: 03/12/22 Treatments to Date: 4 Discharge Status: Patient Elected to Stop Discharge Summary: Fredrick has been seen in OT for brief course of treatment for left proximal biceps tendinitis and subscapularis strain. He continues to have persistent pain in shoulder, worsening w/ reaching, general use and sleeping. He has had fairly good follow through w/ HEP and icing, but at this time has decided to cancel all further therapy and discuss other options with Dr Chery. Electronically Signed By: DIALLO Khan/Kurt CHT Please Sign and return to therapist, thank you for your referral.
== END 2022-03-17 08:06 | disposition home or self-care (01) ==
LOC: HO.OT 15:00
PROVIDERS: PCP Internal Medicine; Visit Provider Orthopaedic Surgery
DX: M75.22 Bicipital tendinitis, left shoulder (principal)
CPT/HCPCS: 97033; 97110; 97140; 97165

== ENCOUNTER → 2022-10-09 10:13 | Outpatient (BNVA) | payer OTHER, SELFPAY | PROVIDERS: PCP Internal Medicine; Referring Provider Internal Medicine; Visit Provider Internal Medicine Cardiovascular Disease | DX: I47.1 Supraventricular tachycardia (principal); I10 Essential (primary) hypertension | CPT/HCPCS: 93005 ==

== ENCOUNTER → 2022-10-30 09:49 | Outpatient (BNVA) | payer OTHER, SELFPAY | PROVIDERS: PCP Internal Medicine; Visit Provider Surgery | DX: K44.9 Diaphragmatic hernia without obstruction or gangrene (principal); K21.9 Gastro-esophageal reflux disease without esophagitis | CPT/HCPCS: 99212 ==

== ENCOUNTER → 2022-11-02 15:35 | Outpatient (BNVA) | payer OTHER, SELFPAY | PROVIDERS: PCP Internal Medicine; Visit Provider Internal Medicine | DX: Z13.89 Encounter for screening for other disorder (principal) ==

== ENCOUNTER 2022-11-07 07:57 | Outpatient (REF) | payer OTHER, SELFPAY ==
[2022-11-07 08:07] LABS: MANUAL DIFF FLAG NO
[2022-11-07 08:30] LABS: Basophils Percent Auto 0.8 % (0-2); Eosinophils Absolute Auto 0.1 X10*3/uL (0.0-0.4); Eosinophils Percent Auto 1.8 % (0-4); Hematocrit 45.2 % (42.0-52.0); Hemoglobin 15.3 g/dl (14.0-18.0); Lymphocytes Absolute Auto 1.7 X10*3/uL (1.2-4.9); Lymphocytes Percent Auto 34.9 % (20-40); Mean Corpuscular HGB Conc 33.8 g/dl (31.0-36.0); Mean Corpuscular Hemoglobin 27.1 pg (27.0-33.0); Mean Corpuscular Volume 80.1 fL (80.0-98.0); Mean Platelet Volume 10.7 fL (9.4-12.4); Monocytes Absolute Auto 0.4 X10*3/uL (0.1-1.2); Monocytes Percent Auto 8.6 % (2-11); Neutrophils Absolute Auto 2.7 x10*3/uL (2.0-8.3); Neutrophils Percent Auto 53.9 % (45-73); Platelet Count 263 X10*3/uL (160-400); Red Blood Count 5.64 X10*6/uL (4.60-5.80); Red Cell Distribution Width 12.6 % (11.0-16.0)
[2022-11-07 08:39] LABS: Estimated Average Glucose 186 mg/dL; Hemoglobin A1c % 8.1 %
[2022-11-07 09:06] LABS: Alanine Aminotransferase 83 U/L (0-40); Albumin Level 4.5 g/dL (3.5-5.0); Alkaline Phosphatase 68 U/L (39-117); Anion Gap 14 (12-20); Aspartate Amino Transferase 33 U/L (5-37); Bilirubin Total 0.6 mg/dL (0.0-1.0); Blood Urea Nitrogen 18 mg/dL (9-16); Calcium 9.7 mg/dL (8.4-10.2); Carbon Dioxide 25 mmol/L (22-29); Chloride 105 mmol/L (96-108); Cholesterol 187 mg/dL; Estimated Glomerular Filt Rate > 60; Glucose Fasting 277 mg/dL (60-99); HDL Cholesterol 27 mg/dL; LDL Cholesterol Calculated 87 mg/dl; Potassium 4.5 mmol/L (3.3-5.1); Sodium 139 mmol/L (135-145); Triglycerides 369 mg/dL
== END 2022-11-07 07:58 | disposition home or self-care (01) ==
LOC: HO.LAB 07:57
PROVIDERS: PCP Internal Medicine; Visit Provider Internal Medicine
DX: E78.00 Pure hypercholesterolemia, unspecified (principal); E11.9 Type 2 diabetes mellitus without complications; I10 Essential (primary) hypertension
CPT/HCPCS: 36415; 80053; 80061; 83036; 85025

== ENCOUNTER 2023-04-10 07:10 | Outpatient (REF) | payer OTHER, SELFPAY ==
[2023-04-10 07:28] LABS: MANUAL DIFF FLAG NO
[2023-04-10 07:43] LABS: Basophils Absolute Auto 0.1 X10*3/uL (0.0-0.2); Basophils Percent Auto 0.9 % (0-2); Eosinophils Absolute Auto 0.1 X10*3/uL (0.0-0.4); Eosinophils Percent Auto 2.1 % (0-4); Hematocrit 44.1 % (42.0-52.0); Hemoglobin 14.9 g/dl (14.0-18.0); Imm Gran Abs Auto 0.01 X10*3/uL (0.00-0.03); Imm Gran Pct Auto 0.2 % (0.0-0.4); Lymphocytes Absolute Auto 1.9 X10*3/uL (1.2-4.9); Mean Corpuscular HGB Conc 33.8 g/dl (31.0-36.0); Mean Corpuscular Hemoglobin 27.4 pg (27.0-33.0); Mean Corpuscular Volume 81.1 fL (80.0-98.0); Mean Platelet Volume 9.6 fL (9.4-12.4); Monocytes Absolute Auto 0.5 X10*3/uL (0.1-1.2); Monocytes Percent Auto 8.8 % (2-11); Neutrophils Absolute Auto 2.8 x10*3/uL (2.0-8.3); Platelet Count 264 X10*3/uL (160-400); Red Blood Count 5.44 X10*6/uL (4.60-5.80); Red Cell Distribution Width 12.7 % (11.0-16.0); White Blood Count 5.3 X10*3/uL (4.8-10.8)
[2023-04-10 07:49] LABS: Estimated Average Glucose 148 mg/dL; Hemoglobin A1c % 6.8 %
[2023-04-10 08:12] LABS: Alanine Aminotransferase 93 U/L (0-40); Albumin Level 4.4 g/dL (3.5-5.0); Alkaline Phosphatase 46 U/L (39-117); Anion Gap 11 (12-20); Aspartate Amino Transferase 35 U/L (5-37); Bilirubin Total 0.5 mg/dL (0.0-1.0); Blood Urea Nitrogen 17 mg/dL (9-16); Calcium 9.8 mg/dL (8.4-10.2); Carbon Dioxide 26 mmol/L (22-29); Chloride 105 mmol/L (96-108); Cholesterol 180 mg/dL; Estimated Glomerular Filt Rate > 60; Glucose Fasting 207 mg/dL (60-99); HDL Cholesterol 29 mg/dL; LDL Cholesterol Calculated 102 mg/dl; Potassium 4.1 mmol/L (3.3-5.1); Sodium 138 mmol/L (135-145); Total Protein 6.9 g/dL (6.5-8.0); Triglycerides 249 mg/dL
[2023-04-10 08:28] LABS: TSH reflex Free T4 0.78 uIU/mL (0.32-4.0); Vitamin D 25-OH Total 49.6 ng/mL (>30)
== END 2023-04-10 07:11 | disposition home or self-care (01) ==
LOC: HO.LAB 07:10
PROVIDERS: PCP Internal Medicine; Visit Provider Internal Medicine
DX: E78.00 Pure hypercholesterolemia, unspecified (principal); E11.9 Type 2 diabetes mellitus without complications; I10 Essential (primary) hypertension; E55.9 Vitamin D deficiency, unspecified
CPT/HCPCS: 36415; 80053; 80061; 82306; 83036; 84443; 85025

== ENCOUNTER 2023-04-16 13:27 | Emergency (ER) | payer OTHER, SELFPAY ==
--- NOTE | ~2023-04-16 | XR_ITS ---
EXAMINATION: XR CHEST CLINICAL INFORMATION: Chest pain COMPARISON: Previous chest x-ray December 2017 TECHNIQUE: 2 views of the chest were obtained. FINDINGS: No significant abnormality is noted involving the heart, lungs, mediastinum, bony thorax or soft tissues. XR/XR chest 2V IMPRESSION: Unremarkable examination.
--- NOTE | 2023-04-16 13:30 | ECG_ITS ---
Test Reason : HEART RACING/CP Blood Pressure : / mmHG Vent. Rate : 072 BPM Atrial Rate : 072 BPM P-R Int : 168 ms QRS Dur : 090 ms QT Int : 386 ms P-R-T Axes : 037 -22 021 degrees QTc Int : 422 ms Normal sinus rhythm Normal ECG When compared with ECG of 07-APR-2021 14:54, Criteria for Inferior infarct are no longer Present Referred By: Agnes De León Electronically Signed By:Kermit Yi
[2023-04-16 14:14] LABS: MANUAL DIFF FLAG NO
[2023-04-16 14:19] LABS: Basophils Absolute Auto 0.1 X10*3/uL (0.0-0.2); Basophils Percent Auto 1.1 % (0-2); Eosinophils Absolute Auto 0.1 X10*3/uL (0.0-0.4); Eosinophils Percent Auto 1.5 % (0-4); Hematocrit 43.2 % (42.0-52.0); Imm Gran Abs Auto 0.01 X10*3/uL (0.00-0.03); Imm Gran Pct Auto 0.2 % (0.0-0.4); Lymphocytes Absolute Auto 2.1 X10*3/uL (1.2-4.9); Lymphocytes Percent Auto 39.9 % (20-40); Mean Corpuscular HGB Conc 34.7 g/dl (31.0-36.0); Mean Corpuscular Volume 80.7 fL (80.0-98.0); Monocytes Absolute Auto 0.5 X10*3/uL (0.1-1.2); Monocytes Percent Auto 8.5 % (2-11); Neutrophils Absolute Auto 2.6 x10*3/uL (2.0-8.3); Neutrophils Percent Auto 48.8 % (45-73); Platelet Count 283 X10*3/uL (160-400); Red Blood Count 5.35 X10*6/uL (4.60-5.80); Red Cell Distribution Width 12.6 % (11.0-16.0); White Blood Count 5.3 X10*3/uL (4.8-10.8)
[2023-04-16 14:23] VITALS: BP 109/80; PULSE 78; RESP 16; TEMP 35.7; O2SAT 96; BMI 28.2
--- NOTE | 2023-04-16 14:24 | ED_ITS ---
HPI - General Adult General Chief complaint: General Medical Stated complaint: heart racing, arms/legs numb Time Seen by Provider: 04/16/23 18:29 Source: patient Mode of arrival: ambulatory Limitations: no limitations History of Present Illness HPI narrative: Patient is a 53 year old assigned male at with a history of DM, anxiety, AV clint re-entry tachycardia, and SUJEY presenting to the emergency department t eric after an episode of heart palpitations. Patient states that last night he had an episode of heart palpitations with bilateral arm and feet numbness, feeling flush, and nausea. Patient states that he still feels some of that flushed feeling today. Patient denies any current dizziness, lightheadedness, abdominal pain, nausea, vomiting, fever, chills, blurry vision, double vision, loss of vision, chest pain, difficulty breathing, shortness of breath, back pain, night sweats, pain with urination, increased urinary frequency, increased urinary urgency, blood in his urine or stool, syncope or a near syncopal episode, recent trauma or falls, bowel incontinence, bladder incontinence, bowel retention, bladder retention, or any other complaints at this time. Onset (ago): hour(s) Severity: mild Severity scale (1-10): 2 Relieving factors: none Exacerbating factors: none Associated symptoms: other (flush feeling) Treatments prior to arrival: none Related Data Home Medications Medication Instructions Recorded Confirmed multivitamin 1 tab PO DAILY 07/23/20 11/13/22 Bacillus coagulans 10 billion cell 10,000,000,000 cell PO DAILY 06/13/21 11/13/22 capsule,delayed release (Probiotic (B. coagulans)) metformin 500 mg tablet,extended 500 mg PO BID 04/16/23 release 24 hr Previous Rx's Medication Instructions Recorded Lactobacillus 1 cap PO DAILY #30 caps 07/01/21 acidophilus-Bifidobac.animalis 10 billion cell capsule (Digestive Probiotic) sildenafil 50 mg tablet 50 mg PO DAILY PRN Sexual Activity 02/25/22 #10 tabs paroxetine HCl 30 mg tablet 30 mg PO QAM #90 tabs 10/02/22 lisinopril 2.5 mg tablet 2.5 mg PO DAILY #90 tabs 11/01/22 blood-glucose meter,continuous #1 ea 11/18/22 (Dexcom G6 Sheet Cutter) blood-glucose sensor (Dexcom G6 #3 ea 11/18/22 Sensor device) blood-glucose transmitter (Dexcom #1 ea 11/18/22 G6 Transmitter device) cholecalciferol (vitamin D3) 25 25 mcg PO DAILY #90 caps 01/19/23 mcg (1,000 unit) capsule (Vitamin D3) cyclobenzaprine 10 mg tablet 10 mg PO BEDTIME #14 tabs 02/02/23 meloxicam 15 mg tablet 15 mg PO DAILY #14 tabs 02/02/23 metoprolol succinate 100 mg 100 mg PO DAILY 90 days #90 tabs 03/02/23 tablet,extended release 24 hr icosapent ethyl 1 gram capsule 2 g PO BID 30 days #120 caps 04/14/23 (Vascepa) methylcellulose (laxative) 500 mg 1,000 mg PO BID #120 tabs 04/16/23 tablet (Citrucel) omeprazole 20 mg capsule,delayed 20 mg PO DAILY 90 days #90 caps 04/16/23 release Allergies Allergy/AdvReac Type Severity Reaction Status Date / Time No Known Allergies Allergy Verified 04/16/23 16:22 Review of Systems Constitutional: Constitutional: Reports no additional constitutional complaints, Denies chills, Denies fever(s) and Denies night sweats Eyes: Eyes: Reports no additional eye complaints, Denies blurry vision, Denies change in vision, Denies diplopia, Denies eye discharge, Denies loss of vision and Denies eye pain ENT: Denies dizziness Cardiovascular: Cardiovascular: Reports no additional cardiovascular complaints, Denies chest pain, Denies lightheadedness, Denies Loss of Consciousness, Reports palpitations (last night, now resolved) and Denies dyspnea Respiratory: Respiratory: Reports no additional respiratory complaints and Denies dyspnea Gastrointestinal: Gastrointestinal: Reports no additional gastrointestinal complaints, Denies abdominal pain, Denies melena, Denies hematochezia, Denies change in bowel habits and Denies change in stool character Genitourinary: Genitourinary: Reports no additional male genitourinary complaints, Denies hematuria, Denies oliguria, Denies difficulty urinating, Denies dysuria, Denies urinary frequency, Denies urinary hesitancy, Denies urinary incontinence and Denies urinary urgency Musculoskeletal: Musculoskeletal: Reports no additional musculoskeletal comp laints, Reports numbness and Reports tingling Neurologic: Denies dizziness, Denies loss of vision, Reports numbness and Reports tingling Comments: numbness and tingling last night that has now resolved Psychiatric: Psychiatric: Reports no additional psychiatric complaints Endocrine: Endocrine: Reports no additional endocrine complaints and Reports palpitations (last night, now resolved) Hematologic/Lymphatic: Hematologic/Lymphatic: Reports no additional hematologic/lymphatic complaints Allergic/Immunologic: Allergic/Immunologic: Reports no additional allergic/immunologic complaints [facility] Past Medical History Attestation statement: The following information was validated with the patient. Source: old records reviewed and nursing notes reviewed Medical History Anxiety AVNRT (AV clint re-entry tachycardia) Benign essential hypertension Bilateral kidney stones Degenerative joint disease of right shoulder Diabetes mellitus Difficult airway for intubation Gastroesophageal reflux disease concurrent with and due to paraesophageal hernia History of obstructive sleep apnea Low back pain Obstructive sleep apnea (~2008) Overweight (BMI 25.0-29.9) Personal history of nicotine dependence Physical exam Pure hypercholesterolemia Subscapularis (muscle) sprain Urinary frequency Vitamin D deficiency Surgical History History of arthroscopy of right shoulder (~2011) History of colonoscopy (~2020) History of cystoscopy (~2020) History of esophagogastroduodenoscopy (EGD) (~2020) History of left knee surgery (~1992) History of nasal surgery (~1996) Family History Family History Father Lung cancer Mother Medical history unknown Maternal Grandfather Myocardial infarction Maternal Uncle Myocardial infarction Social History Social History Household Members: Significant Other and Children Housing: House Alcohol intake: current Alcohol intake frequency: holidays/special occasions only Patient Tobacco Use Status: Former Tobacco user e-Cigarette/Vaping Use: Never Used Second Hand Smoke Exposure: Yes Advance Directives: No Advance Directives Information Provided: No service: No Current occupational status: employed Cognitive needs: No Hearing needs: No Vision needs: Yes (reading glasses) Physical Exam ED Vital Signs: BMI result Body Mass Index 28.2 Course Course Course Narrative: RME performed by Agnes De León PA-C. Patient is a 53 year old assigned male at presenting to the emergency department with chest pain, palpitations, and extremity numbness. Labs and swabs ordered. Patient placed back in the waiting room pending room availability and results. Medical Decision Making Medical Decision Making [facility] Narrative: Patient is a 53 year old assigned male at with a history of DM, anxiety, AV clint re-entry tachycardia, and SUJEY presenting to the emergency department today after an episode of palpitations, nausea, numbness in his hands and feet, and flush feeling. Patient's physical exam was unremarkable. Patient's blood work was unremarkable. Patient's urine showed no acute process. Patient's EKG was unremarkable. Patient's chest x-ray showed no acute process. Patient eloped from the department before myself or any other emergency department provider cou ld explain his physical exam findings, test results, treatment, or treatment plans. Differential Diagnosis Differential Diagnoses: The differential diagnosis associated with the presentation includes NSTEMI STEMI Chest pain Palpitations Arrhythmia Admission/Observation Consideration of admission/observation: Escalation of care including admission/observation considered Patient would have been admitted to the hospital had his work up had any findings where hospital admission was appropriatem his clinical presentation warranted hospital admission, and he hadn't eloped from the department. Lab Data [facility] Lab Attestation statement: I reviewed the patient's lab results. My interpretation of these studies and their corresponding values is that they are grossly normal. 04/16/23 13:58 04/16/23 13:58 Labs: Lab Results 04/16/23 04/16/23 04/16/23 Range/Units 13:58 13:58 13:58 WBC 5.3 (4.8-10.8) X10*3/uL RBC 5.35 (4.60-5.80) X10*6/uL Hgb 15.0 (14.0-18.0) g/dl Hct 43.2 (42.0-52.0) % MCV 80.7 (80.0-98.0) fL MCH 28.0 (27.0-33.0) pg MCHC 34.7 (31.0-36.0) g/dl RDW 12.6 (11.0-16.0) % Plt Count 283 (160-400) X10*3/uL MPV 10.0 (9.4-12.4) fL Immature Gran % (Auto) 0.2 (0.0-0.4) % Neut % (Auto) 48.8 (45-73) % Lymph % (Auto) 39.9 (20-40) % [place] % (Auto) 8.5 (2-11) % Eos % (Auto) 1.5 (0-4) % Baso % (Auto) 1.1 (0-2) % Lymph # (Auto) 2.1 (1.2-4.9) X10*3/uL [place] # (Auto) 0.5 (0.1-1.2) X10*3/uL Eos # (Auto) 0.1 (0.0-0.4) X10*3/uL Baso # (Auto) 0.1 (0.0-0.2) X10*3/uL Abs Immat Gran (auto) 0.01 (0.00-0.03) X10*3/uL Absolute Neuts (auto) 2.6 (2.0-8.3) x10*3/uL Absolute Nucleated RBC 0.000 (0.0-0.012) X10*3/uL Nucleated RBC % (auto) 0.0 (0.0-0.2) /100WBC Sodium 136 (135-145) mmol/L Potassium 3.9 (3.3-5.1) mmol/L Chloride 105 (96-108) mmol/L Carbon Dioxide 21 L (22-29) mmol/L Anion Gap 14 (12-20) BUN 18 H (9-16) mg/dL Creatinine 1.00 (0.5-1.4) mg/dL Estim Creat Clear Calc 100.1 Estimated GFR > 60 Random Glucose 184 H (60-115) mg/dL Calcium 9.9 (8.4-10.2) mg/dL Magnesium 1.7 (1.6-2.6) mg/dL Total Bilirubin 0.4 (0.0-1.0) mg/dL AST 29 (5-37) U/L ALT 71 H (0-40) U/L Alkaline Phosphatase 50 (39-117) U/L Troponin I High Sens < 2.7 (<3.5-35.0) ng/L C-Reactive Protein < 0.10 (< or = 0.50) mg/dL Total Protein 7.3 (6.5-8.0) g/dL Albumin 4.3 (3.5-5.0) g/dL COVID-19 (FREDERIC) (Negative) COVID-19 Clin Com Influenza Type A (ODILIA) (Negative) Influenza Type B (ODILIA) (Negative) Influenza A & B Note 04/16/23 04/16/23 Range/Units 14:51 14:51 WBC (4.8-10.8) X10*3/uL RBC (4.60-5.80) X10*6/uL Hgb (14.0-18.0) g/dl Hct (42.0-52.0) % MCV (80.0-98.0) fL MCH (27.0-33.0) pg MCHC (31.0-36.0) g/dl RDW (11.0-16.0) % Plt Count (160-400) X10*3/uL MPV (9.4-12.4) fL Immature Gran % (Auto) (0.0-0.4) % Neut % (Auto) (45-73) % Lymph % (Auto) (20-40) % [place] % (Auto) (2-11) % Eos % (Auto) (0-4) % Baso % (Auto) (0-2) % Lymph # (Auto) (1.2-4.9) X10*3/uL [place] # (Auto) (0.1-1.2) X10*3/uL Eos # (Auto) (0.0-0.4) X10*3/uL Baso # (Auto) (0.0-0.2) X10*3/uL Abs Immat Gran (auto) (0.00-0.03) X10*3/uL Absolute Neuts (auto) (2.0-8.3) x10*3/uL Absolute Nucleated RBC (0.0-0.012) X10*3/uL Nucleated RBC % (auto) (0.0-0.2) /100WBC Sodium (135-145) mmol/L Potassium (3.3-5.1) mmol/L Chloride (96-108) mmol/L Carbon Dioxide (22-29) mmol/L Anion Gap (12-20) BUN (9-16) mg/dL Creatinine (0.5-1.4) mg/dL Estim Creat Clear Calc Estimated GFR Random Glucose (60-115) mg/dL Calcium (8.4-10.2) mg/dL Magnesium (1.6-2.6) mg/dL Total Bilirubin (0.0-1.0) mg/dL AST (5-37) U/L ALT (0-40) U/L Alkaline Phosphatase (39-117) U/L Troponin I High Sens (<3.5-35.0) ng/L C-Reactive Protein (< or = 0.50) mg/dL Total Protein (6.5-8.0) g/dL Albumin (3.5-5.0) g/dL COVID-19 (FREDERIC) Negative (Negative) COVID-19 Clin Com See Note Influenza Type A (ODILIA) Negative (Negative) Influenza Type B (ODILIA) Negative (Negative) Influenza A & B Note See Note Independent Interpretation I performed an independent interpretation of an: EKG and Plain X-Ray Interpretation: My interpretation is in agreement with the radiologist's impression of this imaging study. EXAMINATION: XR CHEST CLINICAL INFORMATION: Chest pain COMPARISON: Previous chest x-ray December 2017 TECHNIQUE: 2 views of the chest were obtained. FINDINGS: No significant abnormality is noted involving the heart, lungs, mediastinum, bony thorax or soft tissues. XR/XR chest 2V IMPRESSION: Unremarkable examination. Dictated By: Charlee Leon MD Signed By: Electronically signed by Charlee Leon MD 04/16/23 1532 Vent. Rate: 072 BPM ? ? Atrial Rate: 072 BPM P-R Int: 168 ms? QRS Dur: 090 ms QT Int: 386 ms ? ? ? P-R-T Axes: 037 -22 021 degrees QTc Int: 422 ms ? Normal sinus rhythm Normal ECG When compared with ECG of 07-APR-2021 14:54, Criteria for Inferior infarct are no longer Present ? Electronically Signed By:Kermit Yi Dictated By: Kermit Yi MD Signed By: Electronically signed by Kermit Yi MD 04/16/23 7540 Radiology Impression Discussion of test interpretation with radiology: I have reviewed the radiologist's reading. Chronic Conditions Patient?s care impacted by: Diabetes Discharge Plan Discharge Clinical Impression: Palpitations Patient Disposition: Elopement Prescriptions: No Action paroxetine HCl 30 mg tablet 30 mg PO QAM Qty: 90 2RF lisinopril 2.5 mg tablet 2.5 mg PO DAILY Qty: 90 2RF (DME) Dexcom G6 Transmitter Device See Rx Instructions .Route Qty: 1 0RF Rx Instructions: As directed ([facility]) Dexcom G6 Sheet Cutter Misc See Rx Instructions .Route Qty: 1 0RF Rx Instructions: As directed (DME) Dexcom G6 Sensor Device See Rx Instructions .Route Qty: 3 0RF Rx Instructions: As directed cholecalciferol (vitamin D3) [Vitamin D3] 25 mcg (1,000 unit) capsule 25 mcg PO DAILY Qty: 90 3RF metoprolol succinate 100 mg tablet extended release 24 hr 100 mg PO DAILY 90 Days Qty: 90 3RF icosapent ethyl [Vascepa] 1 gram capsule 2 g PO BID 30 Days Qty: 120 3RF multivitamin Tablet 1 tab PO DAILY sildenafil 50 mg tablet 50 mg PO DAILY PRN (Reason: Sexual Activity) Qty: 10 0RF meloxicam 15 mg tablet 15 mg PO DAILY Qty: 14 0RF cyclobenzaprine 10 mg tablet 10 mg PO BEDTIME Qty: 14 0RF Probiotic (B. coagulans) 10 billion cell capsule,delayed release(DR/EC) 10,000,000,000 cell PO DAILY Digestive Probiotic 10 billion cell capsule 1 cap PO DAILY Qty: 30 4RF metformin 500 mg tablet extended release 24 hr 500 mg PO BID omeprazole 20 mg capsule,delayed release(DR/EC) 20 mg PO DAILY 90 Days Qty: 90 1RF Citrucel 500 mg tablet 1,000 mg PO BID Qty: 120 3RF Discharge Date/Time: 04/16/23 18:31
[2023-04-16 14:35] LABS: Alanine Aminotransferase 71 U/L (0-40); Albumin Level 4.3 g/dL (3.5-5.0); Alkaline Phosphatase 50 U/L (39-117); Anion Gap 14 (12-20); Aspartate Amino Transferase 29 U/L (5-37); Bilirubin Total 0.4 mg/dL (0.0-1.0); Blood Urea Nitrogen 18 mg/dL (9-16); Calcium 9.9 mg/dL (8.4-10.2); Carbon Dioxide 21 mmol/L (22-29); Chloride 105 mmol/L (96-108); Creatinine Clr Calc Pharmacy 100.1; Estimated Glomerular Filt Rate > 60; Glucose Random 184 mg/dL (60-115); Magnesium 1.7 mg/dL (1.6-2.6); Potassium 3.9 mmol/L (3.3-5.1); Sodium 136 mmol/L (135-145); Total Protein 7.3 g/dL (6.5-8.0)
[2023-04-16 14:43] LABS: Troponin-I High Sensitivity < 2.7 ng/L (<3.5-35.0)
[2023-04-16 15:34] LABS: IDNOW Serial# BCCEAD1C
[2023-04-16 15:35] LABS: COVID-19 Test Negative (Negative); IDNOW Serial# 08D9AD1C; Influenza A Negative (Negative); Influenza B2 Negative (Negative)
[2023-04-16 17:09] LABS: C Reactive Protein < 0.10 mg/dL (< or = 0.50)
== END 2023-04-16 18:31 | disposition left against medical advice (07) ==
PROVIDERS: Physician Assistant Medical; Emergency Provider Emergency Medicine; PCP Internal Medicine
DX: R00.2 Palpitations (principal); Z20.822 Contact with and (suspected) exposure to COVID-19; E11.9 Type 2 diabetes mellitus without complications; I10 Essential (primary) hypertension; E78.00 Pure hypercholesterolemia, unspecified; Z79.84 Long term (current) use of oral hypoglycemic drugs; Z79.899 Other long term (current) drug therapy; Z87.891 Personal history of nicotine dependence
CPT/HCPCS: 36415; 71046; 80053; 83735; 84484; 85025; 86140; 87502; 87635; 93005; 99283

== ENCOUNTER → 2023-04-16 13:30 | Outpatient (BNV) | payer OTHER, SELFPAY | PROVIDERS: Emergency Provider Emergency Medicine; PCP Internal Medicine; Visit Provider Internal Medicine Cardiovascular Disease | DX: R07.9 Chest pain, unspecified (principal) | CPT/HCPCS: 93010 ==

== ENCOUNTER 2023-04-16 16:07 | Outpatient (AMB) | payer OTHER, SELFPAY ==
--- NOTE | 2023-04-16 16:14 | A.OFFVIS_ITS ---
Intake Vital Signs 04/16/23 16:15 Height 5 ft 11 in Weight 201 lb 0.985 oz BMI 28.0 BP 106/60 Blood Pressure Location Lt brachial Position Sitting Pulse 73 Intake Visit Reasons: pt req fu Intake Note: Patient presents to in office visit today in follow up of epigastric pain. CC: Pt c/o epigastric pain, nausea, ocassional GERD, abdominal pain, diarrhea all the time . Patient reports diarrhea for about 10 years and having to take 3 Imodium every day. Housing Manager Required: No Allergies No Known Allergies Allergy (Verified 04/23/23 19:01) HPI pt req fu HPI Details LAST VISIT: 07/01/2021 Hernia Four to cm sliding hiatal hernia. Patient that occasionally when he lays down he feels some acid reflux. He was encouraged to avoid late night snacking. Refer to surgery GERD (gastroesophageal reflux disease) Denies any dyspepsia, dysphagia or odynophagia. Reports occasional reflux at night. Upper endoscopy showed gastritis with mild esophagitis will increase his PPI to twice a day IBS (irritable bowel syndrome) Patient denies any abdominal pain, occasional postprandial bloating. Patient reports that he moves his bowels less. He reports that he uses the bathroom once or twice a day. He reports that he does not feel like he empties his bowels completely. Will add Senokot at night. He is agreeable with this plan and verbalizes understanding of instructions. Status post colonoscopy Patient denies any ill effects from the prep, anesthesia or procedure itself. Unfortunately due to suboptimal prep patient will need to have colonoscopy repeated. I will start him on Senokot now to help him empty his bowels better. He will need 2 day prep for the procedure. He is agreeable to this plan and verbalizes understanding. He was given the opportunity to ask questions and all questions answered. ? Thank you for allowing me to participate in his care Plan Orders Referrals Thoracic Surgery Referral K46.9 Medications New sennosides (Natural Senna Laxative) 8.6 mg PO BEDTIME 30 tabs 2RF constipation K59.00 Changed From omeprazole 20 mg PO DAILY 90 caps 1RF K21.9 To omeprazole 20 mg PO BID 180 caps 2RF K21.9 Refilled methylcellulose (laxative) (Citrucel) 500 mg PO DAILY 30 tabs 2RF K59.00 Lacto.acidophilus-Bif.animalis 10 billion cell (Digestive Probiotic) 1 cap PO DAILY 30 caps 4RF K21.9 TODAY'S VISIT Patient is here today for requested visit. I have not seen patient since June of 2021. Patient continues to have postprandial abdominal bloating and loose stools. Patient denies melena, hematochezia, unintentional weight loss or ribbon like stools. Patient reports acid reflux with dyspepsia without dysphagia or odynophagia. Patient denies any nausea or vomiting. Patient is diabetic, states that his blood sugar feels like are controlled. Patient is trying to change his diet. Currently on metformin twice a day. He is still taking omeprazole daily. [facility] Medical History Anxiety AVNRT (AV clint re-entry tachycardia) Benign essential hypertension Bilateral kidney stones Degenerative joint disease of right shoulder Diabetes mellitus Difficult airway for intubation Gastroesophageal reflux disease concurrent with and due to paraesophageal hernia History of obstructive sleep apnea Low back pain Obstructive sleep apnea (~2008) Overweight (BMI 25.0-29.9) Personal history of nicotine dependence Physical exam Pure hypercholesterolemia Subscapularis (muscle) sprain Urinary frequency Vitamin D deficiency Surgical History History of arthroscopy of right shoulder (~2011) History of colonoscopy (~2020) History of cystoscopy (~2020) History of esophagogastroduodenoscopy (EGD) (~2020) History of left knee surgery (~1992) History of nasal surgery (~1996) Family History Father Lung cancer Mother Medical history unknown Maternal Grandfather Myocardial infarction Maternal Uncle Myocardial infarction Social History Household Members: Significant Other and Children Housing: House Alcohol intake: current Alcohol intake frequency: holidays/special occasions only Patient Tobacco Use Status: Former Tobacco user e-Cigarette/Vaping Use: Never Used Second Hand Smoke Exposure: Yes service: No Current occupational status: employed Cognitive needs: No Hearing needs: No Vision needs: Yes (reading glasses) Review of Systems Const Denies weight gain and Denies weight loss ENT Reports no additional complaints, Denies dysphagia and Denies odynophagia Card Reports no additional complaints Resp Reports no additional complaints GI Reports abdominal pain (Epigastric), Denies belching, Denies melena, Reports bloating, Denies change in bowel habits, Denies dysphagia, Denies excessive flatus, Denies dyspepsia, Reports heartburn, Denies diarrhea, Reports loose stools, Denies nausea, Denies odynophagia and Denies vomiting Reports no additional complaints Musc Reports no additional complaints Neuro Reports no additional complaints Psych Reports no additional complaints Endo Reports no additional complaints Physical Exam Vital Signs: Last Vital Signs Pulse 73 04/16/23 16:15 BP 106/60 04/16/23 16:15 BMI result Body Mass Index 28.0 Const General: healthy appearing, no acute distress and well developed Nutritional Appearance: obese Orientation/consciousness: patient oriented x3 HEENT Head: Yes normal to inspection, Yes normocephalic and Yes atraumatic Face and sinus: Yes normal facial exam Mouth: Normal oral and palatal mucosa present Throat: Yes posterior oropharynx normal, Yes tonsils normal and Yes uvula midline Eyes General: appearance normal, both eyes and all related structures Neck Neck: Yes normal visual inspection, Yes full ROM and Yes trachea midline Thyroid: Thyroid normal Resp Effort & Inspection: normal respiratory effort, able to speak in complete sentences, no tracheal deviation and symmetric chest movement Auscultation: clear to auscultation bilaterally Cardio Jugular venous distension: no JVD Rate: regular rate Heart sounds: S1 normal heart sound present, S2 normal heart sound present, no gallops and no murmurs GI Inspection: Yes normal to inspection, No distended and Yes obesity Palpation (GI): Soft to palpation, not firm, nontender and No hepatosplenomegaly present Auscultation: normal bowel sounds General: Yes no CVA tenderness Back/Spine/Pelvis Back: no CVA tenderness Skin General skin exam: elasticity normal, turgor normal and dry skin Neuro General: patient oriented x3 Psych Appearance: grossly normal Mental Status: mental status grossly normal Speech and movement: Normal speech and movement present Affect: normal affect Assessment & Plan Assessment & Plan (1) Diarrhea: Code(s): R19.7 - Diarrhea, unspecified Qualifiers: Diarrhea type: unspecified type Qualified Code(s): R19.7 - Diarrhea, unspecified Plan: Patient continues to have postprandial loose stools. Patient states that he has been dealing with this for over 10 years. Discussed with patient changing diet. Low FODMAP diet discussed with patient. List of food recommended as well as list of food to avoid given to patient. Patient does admit that he notices that it happens with certain food. Patient was encouraged to pay closer attention to which food is causing his symptoms. (2) Family history of inflammatory bowel disease: Code(s): Z83.79 - Family history of other diseases of the digestive system Plan: Family history of inflammatory bowel disease. Patient will be sent to check [facility] IBD, pancreatic last days, C-reactive protein. Patient can start taking Citrucel 1-2 tablets twice a day. Patient was also encouraged to change his diet and try elimination diet if possible (3) GERD (gastroesophageal reflux disease): Code(s): K21.9 - Gastro-esophageal reflux disease without esophagitis Qualifiers: Esophagitis presence: esophagitis presence not specified Qualified Code(s): K21.9 - Gastro-esophageal reflux disease without esophagitis Plan: Patient can start taking PPI. Omeprazole 20 mg daily. Avoid dietary triggers and late night snacking. Staying upright for minimum 3 hours after meals discussed with patient. I will see patient in 3 months, sooner on as needed basis. Patient is agreeable to this plan and verbalizes understanding of instructions. He was given the opportunity to ask questions and all questions answered. Thank you for allowing me to participate in his care Orders: Orders Pancreatic Elastase-1 04/16/23 R10.9 - Unspecified abdominal pain [facility] IBD SGI 04/16/23 R10.9 - Unspecified abdominal pain, R19.7 - Diarrhea, unspecified, Z83.79 - Family history of other diseases of the digestive system C Reactive Protein 04/16/23 K58.9 - Irritable bowel syndrome without diarrhea Medications: New methylcellulose (laxative) (Citrucel) 1,000 mg (2 x 500 mg) PO BID 120 tabs 3RF Refilled omeprazole 20 mg PO DAILY 90 caps 1RF 90 days K21.9 - Gastro-esophageal reflux disease without esophagitis Coding Level of Care Code Est Pt Level 4 (79639) Diagnoses Diarrhea R19.7 Diarrhea type: unspecified type Family history of inflammatory bowel disease Z83.79 GERD (gastroesophageal reflux disease) K21.9 Esophagitis presence: esophagitis presence not specified Time Spent (min) 40 Comment 25 minutes spent with patient and additional 15 minutes spent reviewing his records
[2023-04-16 16:15] VITALS: BP 106/60; PULSE 73; BMI 28.0
== END 2023-04-16 17:02 | disposition home or self-care (01) ==
PROVIDERS: PCP Internal Medicine; Visit Provider Nurse Practitioner Family
DX: R19.7 Diarrhea, unspecified (principal); Z83.79 Family history of other diseases of the digestive system; K21.9 Gastro-esophageal reflux disease without esophagitis
CPT/HCPCS: 99214

== ENCOUNTER 2023-04-16 17:07 | Outpatient (REF) | payer OTHER, SELFPAY ==
[2023-04-16 17:30] LABS: Appearance Urine Clear; Color Urine Yellow; Glucose Urine UA Negative (Negative); Leukocyte Esterase Urine Negative (Negative); Nitrite Urine Negative (Negative); PH 5.5 (5.0-9.0); Specific Gravity - Urine 1.025 (1.005-1.025); Urine Blood Negative (Negative); Urine Ketones Trace mg/dL (Negative); Urine Protein Negative (Neg-Trace)
[2023-04-16 18:17] LABS: Creatinine Urine 153.26 mg/dL; Microalbum/Creatinine Ratio Ur 4.5 ug/mg cr
== END 2023-04-16 17:08 | disposition home or self-care (01) ==
LOC: HO.LNP 17:07
PROVIDERS: Visit Provider Internal Medicine
DX: E11.9 Type 2 diabetes mellitus without complications (principal); R30.0 Dysuria; K58.9 Irritable bowel syndrome, unspecified
CPT/HCPCS: 81003; 82043

== ENCOUNTER 2023-04-23 15:47 | Outpatient (AMB) | payer OTHER, SELFPAY ==
--- NOTE | 2023-04-23 15:48 | MHC.PC.OV ---
Vital Signs 04/23/23 15:49 Height 5 ft 11 in Weight 202 lb 6 oz BMI 28.2 BP 112/88 Blood Pressure Location Lt brachial Position Sitting Pulse 70 Pulse Source Pulse Oximeter Pulse Oximetry (%) 95 Oxygen Delivery Method Room Air Intake Visit Reasons: Leg Pain/ Brain fog/Internal shakes [id number] Consultant Required: No Accompanied by: Self / Same As Patient Allergies No Known Allergies Allergy (Verified 04/23/23 19:01) Medication List - Last Reconciled 04/23/23 by Cyril Pradhan MD amoxicillin-pot clavulanate 875-125 mg 1 tab PO BID 10 days Bacillus coagulans (Probiotic (B. coagulans)) 10,000,000,000 cells PO DAILY blood-glucose meter,continuous (Dexcom G6 Tumbling Instructor) As directed blood-glucose sensor (Dexcom G6 Sensor device) As directed blood-glucose transmitter (Dexcom G6 Transmitter device) As directed cholecalciferol (vitamin D3) (Vitamin D3) 25 mcg PO DAILY cyclobenzaprine 10 mg PO BEDTIME icosapent ethyl (Vascepa) 2 grams (2 x 1 gram) PO BID 30 days L. acidophilus/Bifid. animalis 10 billion cell (Digestive Probiotic) 1 cap PO DAILY lisinopril 2.5 mg PO DAILY meloxicam 15 mg PO DAILY metformin ER 500 mg PO BID methylcellulose (laxative) (Citrucel) 1,000 mg (2 x 500 mg) PO BID metoprolol succinate ER 100 mg PO DAILY 90 days multivitamin 1 tab PO DAILY omeprazole 20 mg PO DAILY 90 days paroxetine HCl 30 mg PO QAM sildenafil 50 mg PO DAILY PRN tizanidine 4 mg PO BEDTIME PRN 10 days Tobacco use date assessed: 04/23/23 Dental Screening Dental Screen Date: 04/23/23 Did you have a dental visit in the last 12 months?: Yes Did you have a dental problem in the last 6 months where you did not have access to dental care?: No Was dental information given to patient?: Patient has dentist HPI Leg Pain/ Brain fog/Internal shakes HPI Details Patient comes in today for his follow up visit He went to the ER last week for increasing weakness, shakes/chills and palpitations Recalls also at the time that he was experiencing increasing sinus pressure and what he describes as a brain fog Work ups done in the ER, including tests for COVID and influenza, all came back negative or unrevealing Chest x-rays and EKG done were also normal He was advised symptomatic Tx with OTC meds but was sent in Rx for Augmentin when he called up a couple of days ago c/o worsening symptoms States that he is starting to feel better since he started taking the Abx a couple of days ago and his head seems to be slowly clearing up , as well as his sinuses He denies any fever or headaches although he reports experiencing a pressure-like sensation in his head , which is slowly improving He denies any sore throat but states that his throat feels scratchy at times; denies any trouble swallowing Denies any chest pains, no SOB No nausea/vomiting, no abdominal pain No change in bowel habits noted Had his follow up labs done a couple of weeks ago in addition to the labs he had done at the ER last week - to discuss his results [facility] Medical History Anxiety AVNRT (AV clint re-entry tachycardia) Benign essential hypertension Bilateral kidney stones Degenerative joint disease of right shoulder Diabetes mellitus Difficult airway for intubation Gastroesophageal reflux disease concurrent with and due to paraesophageal hernia History of obstructive sleep apnea Low back pain Obstructive sleep apnea (~2008) Overweight (BMI 25.0-29.9) Personal history of nicotine dependence Physical exam Pure hypercholesterolemia Subscapularis (muscle) sprain Urinary frequency Vitamin D deficiency Surgical History History of arthroscopy of right shoulder (~2011) History of colonoscopy (~2020) History of cystoscopy (~2020) History of esophagogastroduodenoscopy (EGD) (~2020) History of left knee surgery (~1992) History of nasal surgery (~1996) Family History Father Lung cancer Mother Medical history unknown Maternal Grandfather Myocardial infarction Maternal Uncle Myocardial infarction Social History Household Members: Significant Other and Children Housing: House Alcohol intake: current Alcohol intake frequency: holidays/special occasions only Patient Tobacco Use Status: Former Tobacco user e-Cigarette/Vaping Use: Never Used Second Hand Smoke Exposure: Yes service: No Current occupational status: employed Cognitive needs: No Hearing needs: No Vision needs: Yes (reading glasses) Questionnaire PHQ-9 Over the last 2 weeks, how often have you been bothered by any of the following problems? 1. Little interest or pleasure in doing things: not at all 2. Feeling down, depressed, or hopeless: not at all 3. Trouble falling or staying asleep, or sleeping too much: not at all 4. Feeling tired or having little energy: not at all 5. Poor appetite or overeating: not at all 6. Feeling bad about yourself - or that you are a failure or have let yourself or your family down: not at all 7. Trouble concentrating on things, such as reading the newspaper or watching television: not at all 8. Moving or speaking so slowly that other people could have noticed. Or the opposite - being so fidgety or restless that you have been moving around a lot more than usual: not at all 9. Thoughts that you would be better off or of hurting yourself in some way: not at all Total score: 0 Depression Screening Interpretation: Negative 08897 - PHQ-9 Billing: Yes Source: Developed by Drs. Anderson Jordan, Marcy Varghese, Rubin Leon and colleagues, with an educational reva from [employer]. Thrive Questionnaire Date Thrive assessed: 04/23/23 I am a: Patient What is your living situation today?: I have a steady place to live Within the past 12 months, did the food you bought not last and you didn't have the money to get more?: Never true Within the past 12 months, did you worry whether your food would run out before you got money to buy more?: Never true Do you have trouble paying for medicines?: No Do you have trouble getting transportation to medical appointments?: No Do you have trouble paying your heating and electricity bill?: No Do you have trouble taking care of your child, family member or friend?: No Do you have trouble with day-to-day activities such as bathing, preparing meals, shopping, managing finances, etc.?: No Are you currently unemployed and looking for a job?: No Are you interested in more education?: No Please select the resources that you would like help with: None Currently or been in a relationship where the following occur: no concerns reported AUDIT C Alcohol Use Questionnaire (AUDIT-C) 1. How often do you have a drink containing alcohol?: Monthly or less 2. How many drinks containing alcohol do you have on a typical day when you are drinking?: 1 or 2 3. How often do you have six or more drinks on one occasion?: Never Total Score: 1 Score Reviewed/Action Taken: Yes MICHAEL-7 AMB Questionnaire MICHAEL-7 Date MICHAEL - 7 assessed: 04/23/23 Feeling nervous, anxious, or on edge: 0 = Not at all Not being able to stop or control worryin = Not at all Worrying too much about different things: 0 = Not at all Trouble relaxin = Not at all Being so restless that it is hard to sit still: 0 = Not at all Becoming easily annoyed or irritable: 0 = Not at all Feeling afraid as if something awful might happen: 0 = Not at all Total MICHAEL-7 score (0-4 normal; 5-9 mild; 10-14 moderate; 15-21 severe): 0 Source: Developed by Drs. Anderson Jordan, Marcy Varghese, Rubin Leon and colleagues, with an educational reva from [employer]. MICHAEL-7 Assessment Billing MICHAEL-7 Assessment Tool: MICHAEL-7 Assessment 73382 Review of Systems Const Reports chills (resolving), Reports fatigue, Denies fever(s), Reports headache(s) (improving) and Reports malaise ENT Denies dysphagia, Denies dizziness, Denies otalgia, Reports headache(s) (improving), Reports nasal congestion, Reports sinus pressure (improving) and Denies sore throat (but feels scratchy at times) Card Denies chest pain, Denies palpitations and Denies dyspnea Resp Reports chest congestion (mild), Denies cough, Denies dyspnea and Denies wheezing GI Denies abdominal pain, Denies constipation, Denies dysphagia, Denies heartburn, Denies diarrhea, Denies nausea and Denies vomiting Denies dysuria, Denies nocturia and Denies urinary frequency Musc Reports back pain (on and off), Reports arthralgias (right shoulder - chronic) and Reports stiffness (in the right shoulder) Neuro Denies dizziness and Reports headache(s) (improving) Psych Reports anxiety (when flying on a plane) Endo Reports fatigue and Denies palpitations Aller/Immun Denies wheezing Physical exam (Primary Care) Vital Signs: Last Vital Signs Pulse 70 04/23/23 15:49 BP 112/88 04/23/23 15:49 Pulse Ox 95 04/23/23 15:49 Oxygen Delivery Method Room Air 04/23/23 15:49 BMI result Body Mass Index 28.2 Tobacco/Smoking Status: Tobacco use Status Tobacco use date assessed 04/23/23 04/23/23 15:56 Patient Tobacco Use Status Former Tobacco user 04/23/23 15:56 e-Cigarette/Vaping Use Never Used 04/23/23 15:56 PHQ-9: PHQ-9 Score PHQ-9: Total score 0 04/23/23 16:32 Depression Screening Interpretation: Negative Thrive Assessment: Date of Thrive Assessment Date Thrive assessed 04/23/23 04/23/23 15:56 Currently or been in a relationship where the following occur: no concerns reported Const General: no acute distress and alert HENMT Ears: TM's normal bilaterally and EAC's normal Face and sinus: No sinus tenderness ((+) slight sinus pressure on palpation/exam) Throat: Yes posterior oropharynx normal and Yes tonsils normal (no TP congestion) Neck Neck: Yes no lymphadenopathy and Yes supple Resp Auscultation: clear to auscultation bilaterally, no rales and no wheezes Cardio Rate: regular rate Rhythm: regular rhythm Heart sounds: no murmurs GI Palpation (GI): Soft to palpation and nontender Auscultation: normal bowel sounds Skin Other: (+) chronically disfigured fingernails, with splitting of a few nails noted Extrem General: Yes no clubbing, cyanosis or edema Right upper extremity: shoulder/upper arm Details: tenderness Location: of the A-C joint and normal ROM Results Reviewed Results Reviewed: Laboratory Tests 04/10/23 04/10/23 04/16/23 07:25 07:25 13:58 WBC 5.3 Hgb 15.0 Hct 43.2 Plt Count 283 Sodium Potassium Creatinine Estimated GFR Random Glucose Fasting Glucose 207 H Hemoglobin A1c % 6.8 Calcium Magnesium AST ALT Triglycerides 249 Cholesterol 180 LDL Cholesterol, Calc 102 HDL Cholesterol 29 25-OH Vitamin D Total 49.6 TSH 0.78 Ur Specific [place] Urine Protein Urine Glucose (UA) Urine Blood COVID-19 (FREDERIC) Influenza Type A (ODILIA) Influenza Type B (ODILIA) 04/16/23 04/16/23 04/16/23 13:58 14:51 14:51 WBC Hgb Hct Plt Count Sodium 136 Potassium 3.9 Creatinine 1.00 Estimated GFR > 60 Random Glucose 184 H Fasting Glucose Hemoglobin A1c % Calcium 9.9 Magnesium 1.7 AST 29 ALT 71 H Triglycerides Cholesterol LDL Cholesterol, Calc HDL Cholesterol 25-OH Vitamin D Total TSH Ur Specific [place] Urine Protein Urine Glucose (UA) Urine Blood COVID-19 (FREDERIC) Negative Influenza Type A (ODILIA) Negative Influenza Type B (ODILIA) Negative 04/16/23 16:00 WBC Hgb Hct Plt Count Sodium Potassium Creatinine Estimated GFR Random Glucose Fasting Glucose Hemoglobin A1c % Calcium Magnesium AST ALT Triglycerides Cholesterol LDL Cholesterol, Calc HDL Cholesterol 25-OH Vitamin D Total TSH Ur Specific [place] 1.025 Urine Protein Negative Urine Glucose (UA) Negative Urine Blood Negative COVID-19 (FREDERIC) Influenza Type A (ODILIA) Influenza Type B (ODILIA) Assessment and Plan Assessment & Plan (1) Sinusitis: Code(s): J32.9 - Chronic sinusitis, unspecified Qualifiers: Sinusitis location: unspecified location Chronicity: acute Recurrence: non-recurrent Qualified Code(s): J01.90 - Acute sinusitis, unspecified Plan: Continue empiric Tx with Augmentin 875 mg BID x total of 10 days Feels that his overall symptoms are starting to improve/resolve since he started on Abx Tx Have instructed patient to call if his symptoms persist or get worse despite Tx (2) Diabetes mellitus: Code(s): E11.9 - Type 2 diabetes mellitus without complications Qualifiers: Diabetes mellitus type: type 2 Diabetes mellitus jail insulin use: without jail use Diabetes mellitus complication status: without complication Qualified Code(s): E11.9 - Type 2 diabetes mellitus without complications Plan: HgbA1c was at 8.1% on his labs done a couple of weeks ago (was at 8.1% a few months ago) -? goal is <6.5% Reinforced diabetic diet Continue Metformin ER 500 mg BID (3) Benign essential hypertension: Code(s): I10 - Essential (primary) hypertension Plan: Reinforced low-sodium diet -? goal is systolic BP of around 120 mm or less Continue Lisinopril 2.5 mg QD and Metoprolol ER 100 mg QD (is taking this primarily for his AVNRT) (4) Pure hypercholesterolemia: Code(s): E78.00 - Pure hypercholesterolemia, unspecified Plan: Results of his labs done last week and a couple of weeks ago reviewed and discussed with patient Reinforced low cholesterol diet Patient has been advised by cardiology to start taking Atorvastatin 20 mg QD previously but he still prefers to hold off on this Continue Fenofibrate 160 mg QD (5) AVNRT (AV clint re-entry tachycardia): Code(s): I47.1 - Supraventricular tachycardia Plan: Stable/ controlled on Metoprolol ER 100 mg QD Follow-up with cardiology as scheduled (6) GERD without esophagitis: Code(s): K21.9 - Gastro-esophageal reflux disease without esophagitis Plan: Dietary restrictions reinforced Continue Omeprazole 20 mg QD (7) Degenerative joint disease of right shoulder: Code(s): M19.011 - Primary osteoarthritis, right shoulder Qualifiers: Osteoarthritis type: post-traumatic Qualified Code(s): M19.111 - Post-traumatic osteoarthritis, right shoulder Plan: Chronic - is mostly manageable and?takes Oxycodone 15 mg once a day only as needed for increased pain Follow-up with Orthopedics as scheduled (8) Vitamin D deficiency: Code(s): E55.9 - Vitamin D deficiency, unspecified Plan: Corrected; continue Vitamin D3 1000 units QD (9) Anxiety: Code(s): F41.9 - Anxiety disorder, unspecified Plan: Continue Paroxetine 30 mg QD (10) Overweight (BMI 25.0-29.9): Comment: He is only moderately overweight. The main cause of his sleep apnea is RETROGANTHIA of the lower jaw. But still it will be helpful if he could lose 5-10 lb of weight. 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
[2023-04-23 15:49] VITALS: BP 112/88; PULSE 70; O2SAT 95; BMI 28.2
== END 2023-04-23 16:33 | disposition home or self-care (01) ==
PROVIDERS: PCP Internal Medicine; Visit Provider Internal Medicine
DX: E11.9 Type 2 diabetes mellitus without complications (principal); I10 Essential (primary) hypertension; K21.9 Gastro-esophageal reflux disease without esophagitis; E55.9 Vitamin D deficiency, unspecified; F41.9 Anxiety disorder, unspecified; I47.1 Supraventricular tachycardia; J01.90 Acute sinusitis, unspecified; E78.00 Pure hypercholesterolemia, unspecified; M19.111 Post-traumatic osteoarthritis, right shoulder; E66.3 Overweight
CPT/HCPCS: 99214

== ENCOUNTER 2023-05-14 16:30 | Outpatient (AMB) | payer OTHER, SELFPAY ==
[2023-05-14 16:35] VITALS: BP 122/80; PULSE 70; O2SAT 95; BMI 28.4
--- NOTE | 2023-05-14 16:35 | A.OFFPC_ITS ---
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 coagulans)) 10,000,000,000 cells PO DAILY blood-glucose meter,continuous (Dexcom G6 Software Requirements Engineer) As directed blood-glucose sensor (Dexcom G6 Sensor device) As directed blood-glucose transmitter (Dexcom G6 Transmitter device) As directed cholecalciferol (vitamin D3) (Vitamin D3) 25 mcg PO DAILY cyclobenzaprine 10 mg PO BEDTIME icosapent ethyl (Vascepa) 2 grams (2 x 1 gram) PO BID 30 days L. acidophilus/Bifid. animalis 10 billion cell (Digestive Probiotic) 1 cap PO DAILY lisinopril 2.5 mg PO DAILY meloxicam 15 mg PO DAILY metformin ER 500 mg PO BID methylcellulose (laxative) (Citrucel) 1,000 mg (2 x 500 mg) PO BID metoprolol succinate ER 100 mg PO DAILY 90 days multivitamin 1 tab PO DAILY omeprazole 20 mg PO DAILY 90 days paroxetine HCl 30 mg PO QAM sildenafil 50 mg PO DAILY PRN tizanidine 4 mg PO BEDTIME PRN 10 days Tobacco use date assessed: 05/14/23 Dental Screening Dental Screen Date: 05/14/23 Did you have a dental visit in the last 12 months?: Yes Did you have a dental problem in the last 6 months where you did not have access to dental care?: No Was dental information given to patient?: Patient has dentist HPI Physical exam HPI Details Patient comes in today for his annual physical examination States that his right shoulder pain is again starting to get worse over the past couple of weeks - believes that the cortisone injection that he received from [facility] back in November 2022 is now starting to wear off He has been seeing [facility] for his shoulder issues for almost 2 years now and recalls being advised when he was last seen that he can just call them to schedule an appointment when needed, which he plans to do [facility] Recalls that when he started going to [facility] for his shoulder, they advised him that they will try giving him cortisone injections a few times and if that does not help, they will then perform arthroscopic surgery on the shoulder States that he was also seen by GI recently and was recommended to undergo surgical repair of his hiatal hernia soon He reports going to the ER last month for increasing symptoms of his heart racing and recurrent numbness of his legs and arms States that he was worked up for his heart and remembers being told that all of his heart tests came back normal and he even tested negative for COVID and influenza but before he was formally discharged, he escaped from the ER so he was never given any formal discharge instructions States that his heart symptoms have mostly cleared up at the time and have not recurred since He denies any headaches or dizziness Denies any chest pains, no SOB No nausea/vomiting; reports (+) on and off abdominal (epigastric) pain and bloating, which he states he's had for years Also relates (+) loose stools often which he again has had for years; has noticed that his diarrhea/loose stools tend to occur more often after he eats Has never noticed any blood in his stool Denies any acute urinary symptoms Would also like to know how he did on his follow up labs done a few weeks ago Had his colonoscopy last done in 05/2021 but was advised at the time to get a repeat colonoscopy in 6 to 12 months due to poor prep He will be seeing GI again in June 2023 for a follow up visit and believes that he will be scheduled for all of his needed procedures after that visit [facility] Medical History Anxiety AVNRT (AV clint re-entry tachycardia) Benign essential hypertension Bilateral kidney stones Degenerative joint disease of right shoulder Diabetes mellitus Difficult airway for intubation Gastroesophageal reflux disease concurrent with and due to paraesophageal hernia History of obstructive sleep apnea Low back pain Obstructive sleep apnea (~2008) Overweight (BMI 25.0-29.9) Personal history of nicotine dependence Physical exam Pure hypercholesterolemia Subscapularis (muscle) sprain Urinary frequency Vitamin D deficiency Surgical History History of arthroscopy of right shoulder (~2011) History of colonoscopy (~2020) History of cystoscopy (~2020) History of esophagogastroduodenoscopy (EGD) (~2020) History of left knee surgery (~1992) History of nasal surgery (~1996) Family History Father Lung cancer Mother Medical history unknown Maternal Grandfather Myocardial infarction Maternal Uncle Myocardial infarction Social History Household Members: Significant Other and Children Housing: House Alcohol intake: current Alcohol intake frequency: holidays/special occasions only Patient Tobacco Use Status: Former Tobacco user e-Cigarette/Vaping Use: Never Used Second Hand Smoke Exposure: Yes service: No Current occupational status: employed Cognitive needs: No Hearing needs: No Vision needs: Yes (reading glasses) Questionnaire PHQ-9 Over the last 2 weeks, how often have you been bothered by any of the following problems? 1. Little interest or pleasure in doing things: not at all 2. Feeling down, depressed, or hopeless: not at all 3. Trouble falling or staying asleep, or sleeping too much: not at all 4. Feeling tired or having little energy: not at all 5. Poor appetite or overeating: not at all 6. Feeling bad about yourself - or that you are a failure or have let yourself or your family down: not at all 7. Trouble concentrating on things, such as reading the newspaper or watching television: not at all 8. Moving or speaking so slowly that other people could have noticed. Or the opposite - being so fidgety or restless that you have been moving around a lot more than usual: not at all 9. Thoughts that you would be better off or of hurting yourself in some way: not at all Total score: 0 Depression Screening Interpretation: Negative 30637 - PHQ-9 Billing: Yes Source: Developed by Drs. Anderson Jordan, Marcy Varghese, Rubin Leon and colleagues, with an educational reva from [employer]. Thrive Questionnaire Date Thrive assessed: 05/14/23 I am a: Patient What is your living situation today?: I have a steady place to live Within the past 12 months, did the food you bought not last and you didn't have the money to get more?: Never true Within the past 12 months, did you worry whether your food would run out before you got money to buy more?: Never true Do you have trouble paying for medicines?: No Do you have trouble getting transportation to medical appointments?: No Do you have trouble paying your heating and electricity bill?: No Do you have trouble taking care of your child, family member or friend?: No Do you have trouble with day-to-day activities such as bathing, preparing meals, shopping, managing finances, etc.?: No Are you currently unemployed and looking for a job?: No Are you interested in more education?: No Please select the resources that you would like help with: None Currently or been in a relationship where the following occur: no concerns reported AUDIT C Alcohol Use Questionnaire (AUDIT-C) 1. How often do you have a drink containing alcohol?: Monthly or less 2. How many drinks containing alcohol do you have on a typical day when you are drinking?: 1 or 2 3. How often do you have six or more drinks on one occasion?: Never Total Score: 1 Score Reviewed/Action Taken: Yes MICHAEL-7 AMB Questionnaire MICHAEL-7 Date MICHAEL - 7 assessed: 05/14/23 Feeling nervous, anxious, or on edge: 0 = Not at all Not being able to stop or control worryin = Not at all Worrying too much about different things: 0 = Not at all Trouble relaxin = Not at all Being so restless that it is hard to sit still: 0 = Not at all Becoming easily annoyed or irritable: 0 = Not at all Feeling afraid as if something awful might happen: 0 = Not at all Total MICHAEL-7 score (0-4 normal; 5-9 mild; 10-14 moderate; 15-21 severe): 0 Source: Developed by Drs. Anderson Jordan, Marcy Varghese, Rubin Leon and colleagues, with an educational reva from [employer]. MICHAEL-7 Assessment Billing MICHAEL-7 Assessment Tool: MICHAEL-7 Assessment [id number] Review of Systems Const Denies chills, Denies fatigue, Denies fever(s), Denies headache(s), Denies malaise and Denies weakness Eyes Denies blurry vision, Denies change in vision, Denies irritation and Denies itchy eyes ENT Denies dysphagia, Denies dizziness, Denies otalgia, Denies headache(s), Denies nasal congestion, Denies neck pain, Denies odynophagia and Denies sore throat Card Denies chest pain, Denies rapid heart rate, Denies irregular heart rhythm, Denies palpitations and Denies dyspnea Resp Denies chest congestion, Denies cough, Denies dyspnea and Denies wheezing GI Reports abdominal pain (on and off (epigastric)), Reports bloating (frequent), Denies hematochezia, Denies constipation, Denies dysphagia, Denies heartburn, Reports diarrhea, Reports loose stools (frequent, especially post-prandially), Denies nausea, Denies odynophagia and Denies vomiting Denies hematuria, Denies difficulty urinating, Denies dysuria, Denies urinary frequency and Denies urinary urgency Musc Reports back pain (on and off), Reports arthralgias (right shoulder - chronic but increasing lately), Denies neck pain and Reports stiffness (in the right shoulder) Skin/Breast Denies change in pigmentation, Denies lesions, Denies rash and Denies unusual bruising Neuro Denies dizziness, Denies headache(s), Denies paresthesias and Denies weakness Psych Reports anxiety (mostly when flying on a plane) Endo Denies fatigue and Denies palpitations Aller/Immun Denies itchy eyes and Denies wheezing Physical exam (Primary Care) Vital Signs: Last Vital Signs Pulse 70 05/14/23 16:35 BP 122/80 05/14/23 16:35 Pulse Ox 95 05/14/23 16:35 Oxygen Delivery Method Room Air 05/14/23 16:35 BMI result Body Mass Index 28.4 Tobacco/Smoking Status: Tobacco use Status Tobacco use date assessed 05/14/23 05/14/23 16:39 Patient Tobacco Use Status Former Tobacco user 05/14/23 16:39 e-Cigarette/Vaping Use Never Used 05/14/23 16:39 PHQ-9: PHQ-9 Score PHQ-9: Total score 0 05/14/23 16:39 Depression Screening Interpretation: Negative Thrive Assessment: Date of Thrive Assessment Date Thrive assessed 05/14/23 05/14/23 16:39 Currently or been in a relationship where the following occur: no concerns reported Const General: no acute distress, alert and awake Orientation/consciousness: patient oriented x3 HENMT Head: Yes normocephalic and Yes atraumatic Ears: external ears normal, TM's normal bilaterally and EAC's normal General nose exam: No nasal discharge present Face and sinus: Yes normal facial exam and Yes sinuses nontender Teeth and gingiva: dentition normal Throat: Yes posterior oropharynx normal and Yes tonsils normal (no TP congestion) Eyes Eyelids: Yes eyelids normal Conjunctivae: conjunctivae normal Pupils: Equal, round and reactive pupils present EOM: EOMs intact bilaterally Neck Neck: Yes no lymphadenopathy and Yes supple Thyroid: Thyroid normal Resp Auscultation: clear to auscultation bilaterally, no rales and no wheezes Cardio Rate: regular rate Rhythm: regular rhythm Heart sounds: no murmurs GI Palpation (GI): Soft to palpation, nontender and No hepatosplenomegaly present Auscultation: normal bowel sounds General: Yes no CVA tenderness Back/Spine/Pelvis Back: no CVA tenderness Thoracic/Lumbar Spine: thoracic and lumbar spine normal to inspection Skin Lesions: no lesions Rashes: no rashes Neuro General: patient oriented x3, moves all extremities, no focal motor deficits and CN's II-XI intact bilaterally Cranial nerves: Yes Equal, round and reactive pupils present Cognition (Neuro): normal cognition Gait exam (Neuro): Normal gait present Extrem General: Yes no clubbing, cyanosis or edema Right upper extremity: shoulder/upper arm Details: tenderness Location: of the A-C joint and abnormal ROM ((+) pain in the shoulder with active ROM); no swelling Results Reviewed Results Reviewed: Laboratory Tests 04/10/23 04/10/23 04/16/23 07:25 07:25 13:58 WBC 5.3 Hgb 15.0 Hct 43.2 Plt Count 283 Sodium Potassium Creatinine Estimated GFR Fasting Glucose 207 H Hemoglobin A1c % 6.8 Calcium Magnesium AST ALT Triglycerides 249 Cholesterol 180 LDL Cholesterol, Calc 102 HDL Cholesterol 29 25-OH Vitamin D Total 49.6 TSH 0.78 Ur Specific Welch Urine Protein Urine Glucose (UA) Urine Blood 04/16/23 04/16/23 13:58 16:00 WBC Hgb Hct Plt Count Sodium 136 Potassium 3.9 Creatinine 1.00 Estimated GFR > 60 Fasting Glucose Hemoglobin A1c % Calcium 9.9 Magnesium 1.7 AST 29 ALT 71 H Triglycerides Cholesterol LDL Cholesterol, Calc HDL Cholesterol 25-OH Vitamin D Total TSH Ur Specific Welch 1.025 Urine Protein Negative Urine Glucose (UA) Negative Urine Blood Negative Assessment and Plan Assessment & Plan (1) Annual physical exam: Code(s): Z00.00 - Encounter for general adult medical examination without abnormal findings Plan: Results of his labs done a few weeks ago reviewed and discussed with patient He had his screening colonoscopy done previously in 05/2021 but due to poor bowel prep at the time, he was recommended to undergo a repeat colonoscopy in 6 to 12 months Has not had a repeat colonoscopy done yet but he is seeing GI now every few months for routine follow up and will likely have this scheduled at some point, either later this year or early next year (2) Diabetes mellitus: Code(s): E11.9 - Type 2 diabetes mellitus without complications Qualifiers: Diabetes mellitus type: type 2 Diabetes mellitus chcf insulin use: without termite treater helper use Diabetes mellitus complication status: without complication Qualified Code(s): E11.9 - Type 2 diabetes mellitus without complications Plan: HgbA1c was at 6.8% on his labs done a few weeks ago (was at 8.1% previously) -? goal is <6.5% Reinforced diabetic diet Continue Metformin ER 500 mg BID (3) Benign essential hypertension: Code(s): I10 - Essential (primary) hypertension Plan: Reinforced low-sodium diet -? goal is systolic BP of around 120 mm or less Continue Lisinopril 2.5 mg QD and Metoprolol ER 100 mg QD (is taking this primarily for his AVNRT) (4) Pure hypercholesterolemia: Code(s): E78.00 - Pure hypercholesterolemia, unspecified Plan: Advised that his cholesterol levels on his recent labs are at or close to goal but his serum TG is still elevated at 249 mg/dl Reinforced low cholesterol diet Continue Fenofibrate 160 mg QD He has been advised by cardiology previously to start on Atorvastatin 20 mg QD but he still prefers to hold off on doing this (5) AVNRT (AV clint re-entry tachycardia): Code(s): I47.1 - Supraventricular tachycardia Plan: Stable/ controlled on Metoprolol ER 100 mg QD Follow-up with cardiology as scheduled (6) Obstructive sleep apnea: Onset Date: ~2008 Comment: (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 Discussed about proper usage., he needs to use for 6 hours every night. TX : Continue to use full face mask,( Dream Wear ) with auto PAP mode, pressure of 5-15 cmS Must use heated humidification. Atrovent nasal spray 2 spray in each nostril before putting on the CPAP mask, is prescribed. He is also advised to see an ENT specialist, for possibility of surgical resection of the turbinates. If this does not work well then I think we will change from auto Pap mode to CPAP of 10 with a ramp mode Will recheck him in 2 months. . Code(s): G47.33 - Obstructive sleep apnea (adult) (pediatric) Plan: Continue using his CPAP device when sleeping at night Follow up with Sleep Medicine as scheduled (7) GERD without esophagitis: Code(s): K21.9 - Gastro-esophageal reflux disease without esophagitis Plan: Dietary restrictions reinforced Continue Omeprazole 20 mg QD Has been advised by GI recently that he also appears to have a significant hiatal hernia and should consider undergoing surgery to get this addressed Follow up with GI as scheduled (8) Frequent loose stools: Code(s): R19.7 - Diarrhea, unspecified Qualifiers: Diarrhea type: unspecified type Qualified Code(s): R19.7 - Diarrhea, unspecified Plan: Patient states that he has been dealing with this for years now and that his symptoms seem more prominent postprandially Is currently seeing GI for further evaluation and management of this Have discussed, as in the past, that his symptoms may be related to some of his current Rx, particularly his Metformin and Omeprazole, although patient does not think so Recalls that his symptoms did not improve or subside when he stopped taking his Metformin and Omeprazole at some point over the past few years and thinks that his loose stools started BEFORE he began taking both of these meds (9) Degenerative joint disease of right shoulder: Code(s): M19.011 - Primary osteoarthritis, right shoulder Qualifiers: Osteoarthritis type: post-traumatic Qualified Code(s): 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 The main cause of his sleep apnea is RETROGANTHIA of the lower jaw. But still it will be helpful if he could lose 5-10 lb of weight. Code(s): E66.3 - Overweight Plan: Reinforced diet/exercise as tolerated/lose weight Plan Follow up in 4 months Orders: Orders Comprehensive [place]. Panel Fast 4 Months E78.00 - Pure hypercholesterolemia, unspecified Hemoglobin A1c 4 Months E11.9 - Type 2 diabetes mellitus without complications Lipid Panel 4 Months E78.00 - Pure hypercholesterolemia, unspecified TSH reflex Free T4 4 Months E78.00 - Pure hypercholesterolemia, unspecified Vitamin D 25-OH Total 4 Months E55.9 - Vitamin D deficiency, unspecified Microalbumin, Random (w Creat) 4 Months E11.9 - Type 2 diabetes mellitus without complications Complete Blood Count Auto Diff 4 Months I10 - Essential (primary) hypertension UA CC w/rflx Micro + Cult 4 Months R30.0 - Dysuria Coding Level of Care Code Est Pt Prev Care 40-64y([id number]) Diagnoses Annual physical exam Z00.00 Diabetes mellitus E11.9 Diabetes mellitus type: type 2 Diabetes mellitus chcf insulin use: without chcf use Diabetes mellitus complication status: without complication Benign essential hypertension I10 Pure hypercholesterolemia E78.00 AVNRT (AV clint re-entry tachycardia) I47.1 Obstructive sleep apnea G47.33 GERD without esophagitis K21.9 Frequent loose stools R19.7 Diarrhea type: unspecified type Degenerative joint disease of right shoulder M19.111 Osteoarthritis type: post-traumatic Vitamin D deficiency E55.9 Anxiety F41.9 Overweight (BMI 25.0-29.9) E66.3 Additional Codes MICHAEL-7 Assessment Billing - MICHAEL-7 Assessment Tool: MICHAEL-7 Assessment [id number] ([id number])
== END 2023-05-14 17:35 | disposition home or self-care (01) ==
PROVIDERS: PCP Internal Medicine; Visit Provider Internal Medicine
DX: Z00.00 Encounter for general adult medical examination without abnormal findings (principal); E11.9 Type 2 diabetes mellitus without complications; I10 Essential (primary) hypertension; K21.9 Gastro-esophageal reflux disease without esophagitis; F41.9 Anxiety disorder, unspecified; E55.9 Vitamin D deficiency, unspecified; I47.1 Supraventricular tachycardia; E78.00 Pure hypercholesterolemia, unspecified; G47.33 Obstructive sleep apnea (adult) (pediatric); R19.7 Diarrhea, unspecified; M19.111 Post-traumatic osteoarthritis, right shoulder; E66.3 Overweight
CPT/HCPCS: 99396

== ENCOUNTER 2023-07-24 07:23 | Outpatient (REF) | payer OTHER, SELFPAY ==
[2023-07-24 08:43] LABS: C Reactive Protein 0.11 mg/dL (< or = 0.50)
== END 2023-07-24 07:24 | disposition home or self-care (01) ==
LOC: HO.LAB 07:23
PROVIDERS: PCP Internal Medicine; Visit Provider Nurse Practitioner Family
DX: R10.9 Unspecified abdominal pain (principal); R19.7 Diarrhea, unspecified; K58.9 Irritable bowel syndrome, unspecified; Z83.79 Family history of other diseases of the digestive system
CPT/HCPCS: 36415; 81479; 82397; 83520; 86140; 88346; 88350

== ENCOUNTER 2023-07-30 16:07 | Outpatient (AMB) | payer OTHER, SELFPAY ==
--- NOTE | 2023-07-30 16:13 | A.OFFVIS_ITS ---
Intake Vital Signs 07/30/23 16:15 Height 5 ft 11 in Weight 198 lb BMI 27.6 BP 104/65 Blood Pressure Location Lt brachial Position Sitting Pulse 65 Intake Visit Reasons: F/u discuss EGD/colo Intake Note: Patient follow up for EGD/[place] screening consult. Patient cc: abdominal discomfort, acid reflex on and off, and denies any GI issues. 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 Patient states that he has been dealing with this for over 10 years. Discussed with patient changing diet. Low FODMAP diet discussed with patient. List of food recommended as well as list of food to avoid given to patient. Patient does admit that he notices that it happens with certain food. Patient was encouraged to pay closer attention to which food is causing his symptoms. Family history of inflammatory bowel disease Family history of inflammatory bowel disease. Patient will be sent to check [facility] IBD, pancreatic last days, C-reactive protein. Patient can start taking Citrucel 1-2 tablets twice a day. Patient was also encouraged to change his diet and try elimination diet if possible GERD (gastroesophageal reflux disease) Patient can start taking PPI. Omeprazole 20 mg daily. Avoid dietary triggers and late night snacking. Staying upright for minimum 3 hours after meals discussed with patient. I will see patient in 3 months, sooner on as needed basis. Patient is agreeable to this plan and verbalizes understanding of instructions. He was given the opportunity to ask questions and all questions answered. ? Thank you for allowing me to participate in his care Plan Orders Orders Pancreatic Elastase-1 04/16/23 R10.9 - Unspecified abdominal pain [facility] IBD SGI 04/16/23 R10.9 - Unspecified abdominal pain, R19.7 - Diarrhea, unspecified, Z83.79 - Family history of other diseases of the digestive system C Reactive Protein 04/16/23 K58.9 - Irritable bowel syndrome without diarrhea Medications New methylcellulose (laxative) (Citrucel) 1,000 mg (2 x 500 mg) PO BID 120 tabs 3RF Refilled omeprazole 20 mg PO DAILY 90 caps 1RF 90 days K21.9 - Gastro-esophageal reflux disease without esophagitis TODAY'S VISIT: Patient is here today to discuss going for colonoscopy. Last colonoscopy in 2020 patient had poor prep and was recommended to return for colonoscopy in 6-12 months, patient has not return to our office until just recently. Patient continues to have loose stools, workup for IBD negative. Patient was previously encouraged to follow low FODMAP diet. Patient has been eating food that previously was not recommended. Patient denies any nausea or vomiting. Patient denies any fever or chills. Patient denies any abdominal pain, occasional cramping postprandially depending on what he eats. Postprandial abdominal bloating. [facility] Medical History Anxiety AVNRT (AV clint re-entry tachycardia) Benign essential hypertension Bilateral kidney stones Degenerative joint disease of right shoulder Diabetes mellitus Difficult airway for intubation Gastroesophageal reflux disease concurrent with and due to paraesophageal hernia History of obstructive sleep apnea Low back pain Obstructive sleep apnea (~2008) Overweight (BMI 25.0-29.9) Personal history of nicotine dependence Physical exam Pure hypercholesterolemia Subscapularis (muscle) sprain Urinary frequency Vitamin D deficiency Surgical History History of esophagogastroduodenoscopy (EGD) (~2020) History of colonoscopy (~2020) History of left knee surgery (~1992) History of cystoscopy (~2020) History of nasal surgery (~1996) History of arthroscopy of right shoulder (~2011) Family History Father Lung cancer Mother Medical history unknown Maternal Grandfather Myocardial infarction Maternal Uncle Myocardial infarction Household Members: Significant Other and Children Housing: House Alcohol intake: current Alcohol intake frequency: holidays/special occasions only Patient Tobacco Use Status: Former Tobacco user e-Cigarette/Vaping Use: Never Used Second Hand Smoke Exposure: Yes service: No Current occupational status: employed Cognitive needs: No Hearing needs: No Vision needs: Yes (reading glasses) Review of Systems Const Denies weight gain and Denies weight loss ENT Reports no additional complaints, Denies dysphagia and Denies odynophagia Card Reports no additional complaints Resp Reports no additional complaints GI Denies abdominal pain, Denies belching, Denies melena, Reports bloating, Denies change in bowel habits, Denies dysphagia, Denies excessive flatus, Denies dyspepsia, Reports heartburn, Denies diarrhea, Reports loose stools, Denies nausea, Denies odynophagia and Denies vomiting Reports no additional complaints Musc Reports no additional complaints Neuro Reports no additional complaints Psych Reports no additional complaints Endo Reports no additional complaints Physical Exam Vital Signs: Last Vital Signs Pulse 65 07/30/23 16:15 BP 104/65 07/30/23 16:15 BMI result Body Mass Index 27.6 Const General: healthy appearing, no acute distress and well developed Nutritional Appearance: well nourished Orientation/consciousness: patient oriented x3 HEENT Head: Yes normal to inspection, Yes normocephalic and Yes atraumatic Face and sinus: Yes normal facial exam Mouth: Normal oral and palatal mucosa present Throat: Yes posterior oropharynx normal, Yes tonsils normal and Yes uvula midline Eyes General: appearance normal, both eyes and all related structures Neck Neck: Yes normal visual inspection, Yes full ROM and Yes trachea midline Thyroid: Thyroid normal Resp Effort & Inspection: normal respiratory effort, able to speak in complete sentences, no tracheal deviation and symmetric chest movement Auscultation: clear to auscultation bilaterally Cardio Rate: regular rate Heart sounds: S1 normal heart sound present and S2 normal heart sound present GI Inspection: Yes normal to inspection and No distended Palpation (GI): Soft to palpation, not firm, nontender and No hepatosplenomegaly present Auscultation: normal bowel sounds General: Yes no CVA tenderness Back/Spine/Pelvis Back: no CVA tenderness Skin General skin exam: elasticity normal, turgor normal and dry skin Neuro General: patient oriented x3 Psych Appearance: grossly normal Mental Status: mental status grossly normal Affect: normal affect Assessment & Plan Assessment & Plan (1) Obstructive sleep apnea: Onset Date: ~2008 Code(s): G47.33 - Obstructive sleep apnea (adult) (pediatric) (2) Gastroesophageal reflux disease concurrent with and due to paraesophageal hernia: Code(s): K21.9 - Gastro-esophageal reflux disease without esophagitis; K44.9 - Diaphragmatic hernia without obstruction or gangrene (3) Frequent loose stools: Code(s): R19.7 - Diarrhea, unspecified Qualifiers: Diarrhea type: unspecified type Qualified Code(s): R19.7 - Diarrhea, unspecified (4) Screen for colon cancer: Code(s): Z12.11 - Encounter for screening for malignant neoplasm of colon Plan Patient will continue FODMAP diet. Patient was encouraged to avoid dietary triggers in late night snacking. Staying upright for minimal 3 hours after meals discussed with patient. He can continue taking omeprazole in the morning half an hour before breakfast. What to expect before during and after procedure discussed with patient. I will start him on bisacodyl tablets every day in the evening. He was encouraged to increase fluid intake and activity to promote better bowel motility. Patient will be sent for upper endoscopy to rule out gastritis, esophagitis, Yoder's, duodenitis, gastric or peptic ulcers. The importance of good bowel prep discussed with patient. Patient will follow clear liquid diet and will take 4 tablets of Dulcolax day before the procedure. I will see him after the procedure, sooner on as needed basis. Patient is agreeable to this plan and verbalizes understanding of instructions. He was given the opportunity to ask questions and all questions answered. Thank you for allowing me to participate in his care Medications: New bisacodyl (Dulcolax (bisacodyl)) 10 mg (2 x 5 mg) PO BEDTIME 180 tabs 4RF polyethylene glycol 3350 (Miralax) As directed by gastroenterology department at [facility] 238 grams PO ONCE 238 grams 0RF Z12.11 - Encounter for screening for malignant neoplasm of colon Coding Level of Care Code Est Pt Level 4 (09168) Diagnoses Obstructive sleep apnea G47.33 Gastroesophageal reflux disease concurrent with and due to paraesophageal hernia K21.9; K44.9 Diarrhea, unspecified type R19.7 Diarrhea type: unspecified type Screen for colon cancer Z12.11 Time Spent (min) 35 Comment 20 minutes spent with patient and additional 15 minutes spent reviewing his records
[2023-07-30 16:15] VITALS: BP 104/65; PULSE 65; BMI 27.6
== END 2023-07-30 16:52 | disposition home or self-care (01) ==
PROVIDERS: PCP Internal Medicine; Visit Provider Nurse Practitioner Family
DX: G47.33 Obstructive sleep apnea (adult) (pediatric) (principal); K21.9 Gastro-esophageal reflux disease without esophagitis; K44.9 Diaphragmatic hernia without obstruction or gangrene; R19.7 Diarrhea, unspecified; Z12.11 Encounter for screening for malignant neoplasm of colon
CPT/HCPCS: 99214

== ENCOUNTER → 2023-07-30 16:07 | Outpatient (BNVA) | payer OTHER, SELFPAY | PROVIDERS: PCP Internal Medicine; Visit Provider Nurse Practitioner Family ==

== ENCOUNTER 2023-09-21 15:32 | Outpatient (AMB) | payer OTHER, SELFPAY ==
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
[2023-09-21 15:33] VITALS: BP 110/88; PULSE 74; O2SAT 96; BMI 27.8
== END 2023-09-21 16:33 | disposition home or self-care (01) ==
PROVIDERS: PCP Internal Medicine; Visit Provider Internal Medicine
DX: E11.9 Type 2 diabetes mellitus without complications (principal); I10 Essential (primary) hypertension; E78.00 Pure hypercholesterolemia, unspecified; I47.10 Supraventricular tachycardia, unspecified; G47.33 Obstructive sleep apnea (adult) (pediatric); K21.9 Gastro-esophageal reflux disease without esophagitis; R19.7 Diarrhea, unspecified; M19.111 Post-traumatic osteoarthritis, right shoulder; E55.9 Vitamin D deficiency, unspecified; F41.9 Anxiety disorder, unspecified; E66.3 Overweight
CPT/HCPCS: 83036; 99214

== ENCOUNTER 2023-10-14 09:40 | Outpatient (AMB) | payer OTHER, SELFPAY ==
--- NOTE | 2023-10-14 09:41 | A.OFFVIS_ITS ---
Intake Vital Signs 10/14/23 09:42 Height 5 ft 11 in Weight 202 lb 13.204 oz BMI 28.3 BP 110/76 Blood Pressure Location Lt brachial Position Sitting Pulse 81 Intake Visit Reasons: 1 yr f/u Intake Note: 1 year follow-up ekg feeling ok [employer] Sw[employer] Developer Required: No Allergies No Known Allergies Allergy (Verified 09/21/23 16:24) Medication List - Last Reconciled 10/14/23 by Wagner Kirby MD Bacillus coagulans (Probiotic (B. coagulans)) 10,000,000,000 cells PO DAILY bisacodyl (Dulcolax (bisacodyl)) 10 mg (2 x 5 mg) PO BEDTIME blood-glucose meter,continuous ([employer] G6 Administrative [employer]les) As directed blood-glucose sensor (Dexcom G6 Sensor device) As directed blood-glucose transmitter (Dexcom G6 Transmitter device) As directed cholecalciferol (vitamin D3) (Vitamin D3) 25 mcg PO DAILY cyclobenzaprine 10 mg PO BEDTIME hydroxyzine HCl 25 mg PO TID PRN 30 days icosapent ethyl (Vascepa) 2 grams (2 x 1 gram) PO BID 90 days lisinopril 2.5 mg PO DAILY meloxicam 15 mg PO DAILY metformin ER 500 mg PO BID methylcellulose (laxative) (Citrucel) 1,000 mg (2 x 500 mg) PO BID metoprolol succinate ER 100 mg PO DAILY 90 days multivitamin 1 tab PO DAILY omeprazole 20 mg PO DAILY 90 days paroxetine HCl 30 mg PO QAM tizanidine 4 mg PO BEDTIME PRN 10 days HPI HPI Comments History of Present Illness Details Fredrick comes for follow-up. He has been doing well from cardiac perspective. Denies any prolonged palpitation irregular heartbeat. He said he has not exercising regularly and he tries to do some exercise he does get short of breath but this is not new symptom. Denies any exertional chest pain. No prolonged palpitation or lightheadedness. He is having trouble using his CPAP machine. Denies any heart failure symptoms. Pressures generally been well controlled. 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) Benign essential hypertension Diabetes mellitus Surgical History History of esophagogastroduodenoscopy (EGD) (~2020) History of colonoscopy (~2020) History of left knee surgery (~1992) History of cystoscopy (~2020) History of nasal surgery (~1996) History of arthroscopy of right shoulder (~2011) Family History Father Lung cancer Mother Medical history unknown Maternal Grandfather Myocardial infarction Maternal Uncle Myocardial infarction Social History Household Members: Significant Other and Children Housing: House Alcohol intake: current Alcohol intake frequency: holidays/special occasions only Patient Tobacco Use Status: Former Tobacco user e-Cigarette/Vaping Use: Never Used Second Hand Smoke Exposure: Yes service: No Current occupational status: employed Cognitive needs: No Hearing needs: No Vision needs: Yes (reading glasses) Review of Systems Const Denies chills, Denies fatigue, Denies fever(s), Denies frequent falls, Denies weakness, Denies weight gain and Denies weight loss ENT Denies dizziness Card Denies chest pain, Denies leg edema, Denies lightheadedness, Denies palpitations, Denies dyspnea, Denies dyspnea on exertion, Denies orthopnea and Denies other (loss of consciousness) Resp Denies cough, Denies dyspnea and Denies dyspnea on exertion GI Denies hematochezia and Denies change in stool character Musc Denies abnormal gait, Denies muscle weakness, Denies numbness, Denies radiating pain into limb and Denies tingling Neuro Denies abnormal gait, Denies dizziness, Denies frequent falls, Denies numbness, Denies tingling and Denies weakness Endo Denies fatigue and Denies palpitations Physical Exam Vital Signs: Last Vital Signs Pulse 81 10/14/23 09:42 BP 110/76 10/14/23 09:42 BMI result Body Mass Index 28.3 Const General: cooperative, comfortable, no acute distress, alert and awake Nutritional Appearance: average body habitus Orientation/consciousness: patient oriented x3 Limitations: no limitations HEENT Head: Yes normocephalic and Yes atraumatic Neck Neck: Yes trachea midline, Yes supple and Yes no JVD Chest Chest palpation & inspection: normal inspection of the chest Resp Effort & Inspection: normal respiratory effort Auscultation: clear to auscultation bilaterally Cardio Jugular venous distension: no JVD Palpation: normal PMI Rate: regular rate Rhythm: regular rhythm Heart sounds: S1 normal heart sound present and S2 normal heart sound present GI Auscultation: normal bowel sounds Skin General skin exam: no rashes or lesions noted Neuro General: patient oriented x3 and no focal motor deficits Extrem General: Yes no clubbing, cyanosis or edema Psych Appearance: grossly normal Office Procedures EKG Details: EKG shows normal sinus rhythm with normal EKG 04302-[id number], Complete Assessment & Plan Assessment & Plan (1) AVNRT (AV clint re-entry tachycardia): Code(s): I47.1 - Supraventricular tachycardia Plan: Patient with prior history of highly symptomatic SVT with AVNRT physiology. Discussed management. Continue metoprolol therapy which has served him very well. No recurrent episodes. Vagal maneuvers were discussed. Avoidance of stimulants was discussed. (2) Benign essential hypertension: Code(s): I10 - Essential (primary) hypertension Plan: Hypertension which is currently well optimized on current therapy. Importance of good medical therapy was discussed. Importance of good control blood pressure was discussed. Target goal blood pressure less than 130/84. Low-salt diet was discussed advised to monitor blood pressure at home maintain a log. Goal hemoglobin A1c less than 7%. Encouraged to increase his activity level and participate in weight loss program. Importance of CPAP therapy was discussed. Consider alternatives such as pharyngeal surgery if he has not able to tolerate CPAP therapy. (3) Pure hypercholesterolemia: Code(s): E78.00 - Pure hypercholesterolemia, unspecified Plan: Mixed hyperlipidemia with high triglycerides. Currently on Vascepa therapy. Advised to follow-up lipid panel near future. Target goal LDL less than 70 mg/dL. Target goal triglycerides hopefully less than 200 mg/dL. Encouraged to participate in heart healthy lifestyle. Encouraged to participate in regular physical activity to improve metabolic him. Follow up in the clinic in 1 year's time, sooner p.r.n.. Thank you for allowing me to partake in his care Orders: Orders Lipid Panel Today E78.00 - Pure hypercholesterolemia, unspecified CRP High Sensitivity Today E78.5 - Hyperlipidemia, unspecified Coding Level of Care Code Est Pt Level 4 (42882) Diagnoses AVNRT (AV clint re-entry tachycardia) I47.1 Benign essential hypertension I10 Pure hypercholesterolemia E78.00 CPT Codes EKG - CPT: 55704-[id number], Complete ([id number])
[2023-10-14 09:42] VITALS: BP 110/76; PULSE 81; BMI 28.3
== END 2023-10-14 10:10 | disposition home or self-care (01) ==
PROVIDERS: PCP Internal Medicine; Visit Provider Internal Medicine Cardiovascular Disease
DX: I47.10 Supraventricular tachycardia, unspecified (principal); I10 Essential (primary) hypertension; E78.00 Pure hypercholesterolemia, unspecified
CPT/HCPCS: 93010; 99214

== ENCOUNTER → 2023-10-14 09:40 | Outpatient (BNVA) | payer OTHER, SELFPAY | PROVIDERS: Visit Provider Internal Medicine Cardiovascular Disease | DX: I47.10 Supraventricular tachycardia, unspecified (principal); I10 Essential (primary) hypertension; E78.00 Pure hypercholesterolemia, unspecified; Z79.899 Other long term (current) drug therapy | CPT/HCPCS: 93005 ==

== ENCOUNTER 2023-10-28 07:18 | Day surgery (SDC) | payer OTHER, SELFPAY ==
[2023-10-26 14:57] VITALS: BMI 28.3
[2023-10-28 07:21] VITALS: BP 109/78; PULSE 92; RESP 18; TEMP 37; O2SAT 97; BMI 28.7
[2023-10-28] MEDS: Lactated Ringers 1,000 ML 50 ML IVCONT (07:48)
--- NOTE | 2023-10-28 08:00 | MHC.SHP ---
Documented by User: Silvio Britton MD 10/28/23 08:16 Pre-Procedural Eval Section A - 24 Hr Update-Section A only Date of Service: 10/28/23 Section B - Complete if H&P > 30 days Chief Complaint: Gastro-esophageal reflux disease without esophagit Relevant Family History (Specify if Yes): No Relevant Social History: None Present Medications: see Short Stay Collaborative assessment Medical History: Significant History (Anxiety AVNRT (AV clint re-entry tachycardia) Benign essential hypertension Bilateral kidney stones Degenerative joint disease of right shoulder Diabetes mellitus Difficult airway for intubation GERD without esophagitis History of obstructive sleep apnea Low back pain On beta jany at home Overwei) History of Previous Operations: Relevant previous surgery/procedure and date(s) ( H/O left knee surgery History of arthroscopy of right shoulder History of cystoscopy History of nasal surgery) Allergies: Allergies Allergy/AdvReac Type Severity Reaction Status Date / Time No Known Allergies Allergy Verified 09/21/23 16:24 Review of Systems Sugical H&P ROS: Negative: Constitution, Cardiovascular, Respiratory, Neurological, Psychiatric, Hem-Onc, Allergic/Immunologic, Gastrointestinal, Genitourinary, Musculoskeletal, Integumentary, Endocrine and Eyes/Ears/Nose/Throat Exam Surgical H&P Exam: Normal: HEENT, Normal: Heart, Normal: Lungs, Normal: Extremities, Normal: Abdomen, Normal: Skin and Normal: Neurological Plan Diagnosis/Plan: Unchanged I have reviewed the history and physical and performed a pertinent physical examination on my patient. No changes have occurred unless specified. Time Spent With Patient Time: Total time managing care of this patient today ____ minutes. Documented by User: Radhkia Sumner MD 10/28/23 08:11 Pre-Procedural Eval Section A - 24 Hr Update-Section A only Date of Service: 10/28/23 Section B - Complete if H&P > 30 days Chief Complaint: Gastro-esophageal reflux disease without esophagit
--- NOTE | 2023-10-28 08:11 | HO.ANESPROP2 ---
[facility] Active Problems Active Problems: All Active Problems (Updated 10/28/23 @ 08:12 by Radhika Sumner MD) Frequent loose stools (Acute) Annual physical exam (Acute) Sinusitis (Acute) Lower thoracic back pain (Acute) Onycholysis (Acute) Superior labrum dkgccsti-pz-gfyvafsnk (SLAP) tear of left shoulder (Acute) Bicipital tendinitis of left shoulder (Acute) Tendonitis of left rotator cuff (Acute) Nephrolithiasis (Acute) Prostatitis (Acute) Low libido (Acute) AVNRT (AV clint re-entry tachycardia) (Acute) Benign essential hypertension (Acute) Pure hypercholesterolemia (Acute) Diabetes mellitus (Acute) Obstructive sleep apnea (Acute ~2008)- uses mouth guard Gastroesophageal reflux disease concurrent with and due to paraesophageal hernia (Acute) Personal history of nicotine dependence (Acute) Overweight (BMI 25.0-29.9) (Acute) Anxiety (Acute) Urinary frequency (Acute) Low back pain (Acute) Vitamin D deficiency (Acute) Degenerative joint disease of right shoulder (Acute) Disruptive awakening with anesthesia Past Medical History Medical History Physical exam Subscapularis (muscle) sprain Personal history of nicotine dependence Gastroesophageal reflux disease concurrent with and due to paraesophageal hernia Bilateral kidney stones Difficult airway for intubation Urinary frequency Low back pain Vitamin D deficiency Obstructive sleep apnea (~2008) Overweight (BMI 25.0-29.9) Anxiety Pure hypercholesterolemia 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 Combative ) Social History Social History Household Members: Significant Other and Children Housing: House Alcohol intake: current Alcohol intake frequency: does not drink Patient Tobacco Use Status: Former Tobacco user e-Cigarette/Vaping Use: Never Used Second Hand Smoke Exposure: Yes Are you DNR?: No Advance Directives: No Advance Directives Information Provided: Yes Recently lost weight without trying: No Nutrition Risks: No Nutritional Risk Poor oral hygiene: No service: No Current occupational status: employed Cognitive needs: No Hearing needs: No Vision needs: Yes (reading glasses) Meds Allergies Allergy/AdvReac Type Severity Reaction Status Date / Time No Known Allergies Allergy Verified 09/21/23 16:24 Active Medications: Current Medications Lactated Ringer's (Lr) 1,000 mls @ 50 mls/hr IVCONT .Q20H LISA Last Admin: 10/28/23 07:48 Dose: 50 mls/hr Home Medications Medication Instructions Recorded Confirmed Last Taken Type multivitamin 1 tab PO DAILY 07/23/20 10/26/23 04/06/21 History Bacillus coagulans 10 billion cell 10,000,000,000 cell PO DAILY 06/13/21 10/26/23 Unknown History capsule,delayed release (Probiotic (B. coagulans)) metformin 500 mg tablet,extended 500 mg PO BID 04/16/23 10/26/23 Unknown History release 24 hr Exam Height,Weight and Vital Signs: Height 5 ft 11 in Weight 93.4 kg Last Vital Signs Temp 98.6 F 10/28/23 07:21 Pulse 92 10/28/23 07:21 Resp 18 10/28/23 07:21 BP 109/78 10/28/23 07:21 Pulse Ox 97 10/28/23 07:21 O2 Del Method Room Air 10/28/23 07:21 Pertinent Lab Results Pertinent Lab Results: Lab Results 10/28/23 Range/Units 07:28 POC Glucose 222 H (60-115) mg/dL Airway Mallampati Class: III TM Dist: >3cm Neck ROM: Full Loose/Missing/Broken Teeth: Yes (Missing 1 tooth bottom left (post in place), missing 1 tooth top left back. Denies broken or loose teeth) Heart: RRR Lungs: CTAB Assessment and Plan Assessment Anesthesia Assessment: Anesthesia Plan Discussed and Chart Reviewed Final Anesthetic Review Family History of Problems with Anesthesia: No History of Problems with Anesthesia: Yes (Does not wake up well. Combative ) NPO: Yes ASA Class: III Final Preanesthetic Review: No Changes in Pt Med Stat, Meds/Allgs Chart Reviewed, Consent Obtained/Reviewed and Anes Risks/Benef Reviewed Patient Risk: Intermediate Procedure Risk: Low Assessment/Block/Sedation in SS: Assess/Block/Sedation-SS Anesthetic Plan Anesthetic Plan: MAC: and TIVA Disposition: Standard PACU
--- NOTE | 2023-10-28 08:16 | P.OP_ITS ---
Operative Note Operative Note Date of Service: 10/28/23 Narrative: Operative Information Procedure Description: EGD, Colonoscopy Indication: GERD, screening Anesthesia: MAC FLEXIBLE TRANSORAL UPPER GASTROINTESTINAL ENDOSCOPY AND COLONOSCOPY PROCEDURE NOTE UPPER ENDOSCOPY Consent: Indications for the procedure and potential complications of bleeding, perforation, reaction to medications and missed diagnosis were discussed with the patient and informed consent was obtained. Instrument: Olympus GIF H 190 J mid size upper endoscope Monitoring: Vital signs and clinical assessment, continuous EKG monitoring, Pulse oximetry, Carbon Dioxide monitoring and blood pressure monitoring were done throughout the procedure. Procedure: The patient was placed in the left lateral decubitis position and pre-procedure medications were administered and a bite block was placed. The endoscope was inserted into the mouth and advanced under direct vision to the third part of duodenum. A careful inspection was made as the upper endoscope was withdrawn including a retroflexed examination of the proximal stomach; Findings and interventions are described below. Findings: Findings: Larynx:normal Esophagus: GE junction at 36 cm, diaphragm hiatus at 40 cm, irregular Z line with possible tongues of short segment barretts, bx taken, 4-5 cm sliding hiatal hernia noted Stomach: Erythema and edema at antrum with a polypoid lesion at the distal stomach removed with cold snare measuring about 10 mm . Biopsies were also obtained from random stomach. Grade 2 flap valve on retroflexed examination of the cardia. Duodenum: Normal bulb and descending duodenum, Intervention: Biopsies as noted above, cold snare polypectomy COLONOSCOPY Instrument: Olympus variable stiffness pediatric scope 190L Colonoscopy Monitoring: Vital signs and clinical assessment, continuous EKG monitoring, Pulse oximetry, Carbon Dioxide monitoring and blood pressure monitoring were done throughout the procedure. Colon withdrawal time was 10 minutes. Procedure: The patient was placed in the left lateral decubitis position and pre-procedure medications were administered. After a digital rectal examination of the ano-rectum, the video colonoscope was inserted into the rectum and advanced through the colon to the cecum/TI. The colonoscope was slowly withdrawn in a retrograde panoramic fashion and the colon mucosa was carefully examined including a retroflexed view of the rectum. Findings and interventions are described below. Procedure Difficulty:easy Findings: Terminal Ileum-normal Cecum:normal Right sided retroflexion- normal Ascending Colon: normal Transverse Colon -normal Descending Colon:normal Sigmoid Colon: mild to moderate diverticulosis Rectum: Retroflexion with small internal hemorrhoids, grade I Anorectum - normal Colon preparation: [place] Bowel Preparation Scale Right colon; 2 Transverse colon: 2 Left colon; 2 (0 = Unprepared colon segment with mucosa not seen due to solid stool that cannot be cleared. 1 = Portion of mucosa of the colon segment seen, but other areas of the colon segment not well seen due to staining, residual stool and/or opaque liquid. 2 = Minor amount of residual staining, small fragments of stool and/or opaque liquid, but mucosa of colon segment seen well. 3 = Entire mucosa of colon segment seen well with no residual staining, small fragments of stool or opaque liquid) Impression and Post Procedure Diagnosis: Endoscopy Findings: hiatal hernia possible barretts gastritis gastric polyp Colonoscopy Findings: diverticulosis internal hemorrhoids Plan: Await Pathology results Repeat Colonoscopy in 10 years or earlier if clinically indicated High fiber diet leaflet avoid straining at stool, epsom salts and sitz bath, anusol supps or cream GERD precautions depending on path may need repeat EGD in 1-2 yrs or earlier Above findings were reviewed with the patient and relevant handouts were provided if indicated.
[2023-10-28 08:33] LABS: Glucose, Whole Blood 222 mg/dL (60-115)
[2023-10-28 09:20] VITALS: BP 127/61; PULSE 91; RESP 16; TEMP 36.2; O2SAT 97
[2023-10-28 09:35] VITALS: BP 136/87; PULSE 84; RESP 18; O2SAT 96
[2023-10-28 09:50] VITALS: BP 135/83; PULSE 77; RESP 18; TEMP 37.2; O2SAT 97
== END 2023-10-28 10:17 | disposition home or self-care (01) ==
PROVIDERS: PCP Internal Medicine; Visit Provider Internal Medicine Gastroenterology
PROC: (CPT 43239; principal; 2023-10-28 09:20)
DX: K31.7 Polyp of stomach and duodenum (principal); K22.9 Disease of esophagus, unspecified; K29.60 Other gastritis without bleeding; K44.9 Diaphragmatic hernia without obstruction or gangrene; K21.9 Gastro-esophageal reflux disease without esophagitis; Z12.11 Encounter for screening for malignant neoplasm of colon; K57.30 Diverticulosis of large intestine without perforation or abscess without bleeding; K64.0 First degree hemorrhoids; E11.9 Type 2 diabetes mellitus without complications; I10 Essential (primary) hypertension; E78.00 Pure hypercholesterolemia, unspecified; G47.33 Obstructive sleep apnea (adult) (pediatric); Z79.84 Long term (current) use of oral hypoglycemic drugs; Z79.899 Other long term (current) drug therapy
CPT/HCPCS: 43239; 43251; 45378; 82947; 88305; 88313; 88342; J1596; J2250; J2704

== ENCOUNTER → 2023-10-28 07:18 | Outpatient (BNV) | payer OTHER, SELFPAY | PROVIDERS: PCP Internal Medicine; Visit Provider Internal Medicine Gastroenterology | DX: Z12.11 Encounter for screening for malignant neoplasm of colon (principal); K21.9 Gastro-esophageal reflux disease without esophagitis; K64.0 First degree hemorrhoids; K57.30 Diverticulosis of large intestine without perforation or abscess without bleeding; K22.70 Barrett's esophagus without dysplasia | CPT/HCPCS: 43251; 45378 ==

== ENCOUNTER 2023-11-08 14:45 | Outpatient (REF) | payer OTHER, SELFPAY ==
[2023-11-08 15:57] LABS: Hematocrit 46.8 % (42.0-52.0); Hemoglobin 15.8 g/dl (14.0-18.0); Mean Corpuscular HGB Conc 33.8 g/dl (31.0-36.0); Mean Corpuscular Hemoglobin 27.1 pg (27.0-33.0); Mean Corpuscular Volume 80.4 fL (80.0-98.0); Mean Platelet Volume 9.8 fL (9.4-12.4); Platelet Count 300 X10*3/uL (160-400); Red Blood Count 5.82 X10*6/uL (4.60-5.80); Red Cell Distribution Width 12.8 % (11.0-16.0); White Blood Count 6.9 X10*3/uL (4.8-10.8)
[2023-11-08 16:32] LABS: Magnesium 1.9 mg/dL (1.6-2.6)
[2023-11-08 17:04] LABS: Folate 13.8 ng/mL (> or = 4.0)
[2023-11-09 02:59] LABS: Vitamin B12 577 pg/mL (200-900)
== END 2023-11-08 14:46 | disposition home or self-care (01) ==
LOC: HO.LAB 14:45
PROVIDERS: PCP Internal Medicine; Visit Provider Nurse Practitioner Family
DX: G47.33 Obstructive sleep apnea (adult) (pediatric) (principal); R19.7 Diarrhea, unspecified; R25.1 Tremor, unspecified; K22.70 Barrett's esophagus without dysplasia; K21.9 Gastro-esophageal reflux disease without esophagitis; K57.90 Diverticulosis of intestine, part unspecified, without perforation or abscess without bleeding; K64.8 Other hemorrhoids; N18.9 Chronic kidney disease, unspecified
CPT/HCPCS: 36415; 82607; 82746; 83735; 85027

== ENCOUNTER 2023-11-08 14:45 | Outpatient (AMB) | payer OTHER, SELFPAY ==
[2023-11-08 14:48] VITALS: BP 117/66; BMI 28.4
--- NOTE | 2023-11-08 14:48 | MHC.OFFVIS ---
Intake Vital Signs 11/08/23 14:48 Height 5 ft 11 in Weight 204 lb BMI 28.4 BP 117/66 Blood Pressure Location Lt brachial Position Sitting Intake Visit Reasons: s/p colon Intake Note: Patient returns to in office follow up s/p EGD/[place]. CC: Patient states that since after his surgery his legs and arms are shaky and painful. Patient continues to have acid reflux and abdominal discomfort. 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 Patient was encouraged to avoid dietary triggers in late night snacking. Staying upright for minimal 3 hours after meals discussed with patient. He can continue taking omeprazole in the morning half an hour before breakfast. What to expect before during and after procedure discussed with patient. I will start him on bisacodyl tablets every day in the evening. He was encouraged to increase fluid intake and activity to promote better bowel motility. Patient will be sent for upper endoscopy to rule out gastritis, esophagitis, Yoder's, duodenitis, gastric or peptic ulcers. The importance of good bowel prep discussed with patient. Patient will follow clear liquid diet and will take 4 tablets of Dulcolax day before the procedure. I will see him after the procedure, sooner on as needed basis. Patient is agreeable to this plan and verbalizes understanding of instructions. He was given the opportunity to ask questions and all questions answered. ? Thank you for allowing me to participate in his care Medications New bisacodyl (Dulcolax (bisacodyl)) 10 mg (2 x 5 mg) PO BEDTIME 180 tabs 4RF polyethylene glycol 3350 (Miralax) As directed by gastroenterology department at [facility] 238 grams PO ONCE 238 grams 0RF Z12.11 UPPER ENDOSCOPY AND COLONOSCOPY: Findings: Findings: Larynx:normal Esophagus: GE junction at 36 cm, diaphragm hiatus at 40 cm, irregular Z line with possible tongues of short segment barretts, bx taken, 4-5 cm sliding hiatal hernia noted Stomach: Erythema and edema at antrum with a polypoid lesion at the distal stomach removed with cold snare measuring about 10 mm . Biopsies were also obtained from random stomach. Grade 2 flap valve on retroflexed examination of the cardia. Duodenum: Normal bulb and descending duodenum, Intervention: Biopsies as noted above, cold snare polypectomy COLONOSCOPY Instrument: Olympus variable stiffness pediatric scope 190L Colonoscopy Monitoring: Vital signs and clinical assessment, continuous EKG monitoring, Pulse oximetry, Carbon Dioxide monitoring and blood pressure monitoring were done throughout the procedure. Colon withdrawal time was 10 minutes. Procedure: The patient was placed in the left lateral decubitis position and pre-procedure medications were administered. After a digital rectal examination of the ano-rectum, the video colonoscope was inserted into the rectum and advanced through the colon to the cecum/TI. The colonoscope was slowly withdrawn in a retrograde panoramic fashion and the colon mucosa was carefully examined including a retroflexed view of the rectum. Findings and interventions are described below. Procedure Difficulty:easy Findings: Terminal Ileum-normal Cecum:normal Right sided retroflexion- normal Ascending Colon: normal Transverse Colon -normal Descending Colon:normal Sigmoid Colon: mild to moderate diverticulosis Rectum: Retroflexion with small internal hemorrhoids, grade I Anorectum - normal Colon preparation: Oxford Bowel Preparation Scale Right colon; 2 Transverse colon: 2 Left colon; 2 (0 = Unprepared colon segment with mucosa not seen due to solid stool that cannot be cleared. 1 = Portion of mucosa of the colon segment seen, but other areas of the colon segment not well seen due to staining, residual stool and/or opaque liquid. 2 = Minor amount of residual staining, small fragments of stool and/or opaque liquid, but mucosa of colon segment seen well. 3 = Entire mucosa of colon segment seen well with no residual staining, small fragments of stool or opaque liquid) Impression and Post Procedure Diagnosis: Endoscopy Findings: hiatal hernia possible barretts gastritis gastric polyp Colonoscopy Findings: diverticulosis internal hemorrhoids Plan: Await Pathology results Repeat Colonoscopy in 10 years or earlier if clinically indicated High fiber diet leaflet avoid straining at stool, epsom salts and sitz bath, anusol supps or cream GERD precautions depending on path may need repeat EGD in 1-2 yrs or earlier PATHOLOGY RESULTS Diagnosis A. Stomach, biopsy: Antral-type and oxyntic mucosa with mild chronic inactive inflammation; no Helicobacter organisms seen. B. Stomach, polyp: Hyperplastic mucosal polyp with background moderate chronic inactive inflammation; no Helicobacter organisms seen. C. GE junction, biopsy: - Yoder esophagus with background mild chronic inactive inflammation. - No dysplasia seen. - Squamous mucosa within normal limits TODAY'S VISIT: Patient is here today for follow-up and to discuss upper endoscopy and colonoscopy. Barretts esophagus found with mild chronic inactive inflammation. No dysplasia, no H pylori colonoscopy was normal, no polyps. Internal hemorrhoids and diverticulosis found. Patient reports that since the procedure he has been having symptoms of tremors. Patient states that he feels like he is got symptoms of his body moving a lot even inside. Patient had ketamine and propofol for anesthesia. Patient denies any nausea or vomiting. Patient is very anxious about his symptoms that are still lingering. Patient reports occasional loose stools and then constipation depending on what he eats. Patient denies any dyspepsia, dysphagia or odynophagia. Patient reports that omeprazole has been working for him. For the most part his symptoms are suppressed. Patient denies any melena, hematochezia, unintentional weight loss or ribbon like stools. [facility] Medical History (Updated 11/09/23 @ 10:31 by Samia Giron, [facility]) Internal hemorrhoids without complication Diverticulosis Gastroesophageal reflux disease concurrent with and due to paraesophageal hernia Physical exam Subscapularis (muscle) sprain Personal history of nicotine dependence Bilateral kidney stones Difficult airway for intubation Urinary frequency Low back pain Vitamin D deficiency Obstructive sleep apnea (~2008) Overweight (BMI 25.0-29.9) Anxiety Pure hypercholesterolemia 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) Benign essential hypertension Diabetes mellitus Surgical History History of esophagogastroduodenoscopy (EGD) (~2020) History of colonoscopy (~2020) History of left knee surgery (~1992) History of cystoscopy (~2020) History of nasal surgery (~1996) History of arthroscopy of right shoulder (~2011) Family History Father Lung cancer Mother Medical history unknown Maternal Grandfather Myocardial infarction Maternal Uncle Myocardial infarction Social History Household Members: Significant Other and Children Housing: House Alcohol intake: current Alcohol intake frequency: does not drink Patient Tobacco Use Status: Former Tobacco user e-Cigarette/Vaping Use: Never Used Second Hand Smoke Exposure: Yes service: No Current occupational status: employed Cognitive needs: No Hearing needs: No Vision needs: Yes (reading glasses) Review of Systems Const Denies weight gain and Denies weight loss ENT Reports no additional complaints, Denies dysphagia and Denies odynophagia Card Reports no additional complaints Resp Reports no additional complaints GI Denies abdominal pain, Denies belching, Denies melena, Denies bloating, Denies change in bowel habits, Denies dysphagia, Denies excessive flatus, Denies dyspepsia, Denies heartburn, Denies diarrhea, Denies loose stools, Denies nausea, Denies odynophagia and Denies vomiting Reports no additional complaints Musc Reports no additional complaints Neuro Reports no additional complaints Psych Reports no additional complaints Endo Reports no additional complaints Physical Exam Vital Signs: Last Vital Signs BP 117/66 11/08/23 14:48 BMI result Body Mass Index 28.4 Const General: healthy appearing, no acute distress and well developed Nutritional Appearance: well nourished Orientation/consciousness: patient oriented x3 Resp Effort & Inspection: normal respiratory effort, able to speak in complete sentences, no tracheal deviation and symmetric chest movement Auscultation: clear to auscultation bilaterally Cardio Rate: regular rate GI Inspection: Yes normal to inspection and No distended Palpation (GI): Soft to palpation, not firm, nontender and No hepatosplenomegaly present Auscultation: normal bowel sounds General: Yes no CVA tenderness Back/Spine/Pelvis Back: no CVA tenderness Skin General skin exam: elasticity normal, turgor normal and dry skin Neuro General: patient oriented x3 Psych Appearance: grossly normal Mental Status: mental status grossly normal Assessment & Plan Assessment & Plan (1) Obstructive sleep apnea: Onset Date: Code(s): G47.33 - Obstructive sleep apnea (adult) (pediatric) (2) Frequent loose stools: Code(s): R19.7 - Diarrhea, unspecified Qualifiers: Diarrhea type: unspecified type Qualified Code(s): R19.7 - Diarrhea, unspecified (3) Tremor: Code(s): R25.1 - Tremor, unspecified (4) 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 Avoid dietary triggers and late night snacking. Barretts esophagus found on endoscopy. No polyps found on colonoscopy. Moderate diverticulosis of sigmoid colon and internal hemorrhoids. Patient will continue taking Citrucel to help him bulk his stools. Patient reports tremors most likely from ketamine and propofol. Will check magnesium, vitamin B12, vitamin D level, folate. Referral to Neurology sent. Patient will call the office if his symptoms get worse. Most likely his symptoms are related to ketamine. Reassured patient that symptoms will wear off eventually, however patient was told to call the office if his symptoms will get worse. Patient will follow-up in the office in 3 months, sooner on as needed basis. Patient is agreeable to this plan and verbalizes understanding of instructions he was given the opportunity to ask questions all questions answered. Thank you for allowing me to participate in his care Orders: Orders Vitamin B12 and Folate 11/08/23 R19.7 - Diarrhea, unspecified Magnesium 11/08/23 N18.9 - Chronic kidney disease, unspecified Complete Blood Count no Diff 11/08/23 K21.9 - Gastro-esophageal reflux disease without esophagitis Referrals Neurology Referral Z01.818 - Encounter for other preprocedural examination Medications: New magnesium oxide 400 mg PO DAILY 30 caps 2RF K59.04 - Chronic idiopathic constipation Coding Level of Care Code Est Pt Level 4 (23902) Diagnoses Obstructive sleep apnea G47.33 Diarrhea, unspecified type R19.7 Diarrhea type: unspecified type Tremor R25.1 Yoder's esophagus determined by endoscopy K22.70 Gastroesophageal reflux disease without esophagitis K21.9 Esophagitis presence: without esophagitis Diverticulosis K57.90 Internal hemorrhoids without complication K64.8 Time Spent (min) 35 Comment 20 minutes spent with patient and additional 15 minutes spent reviewing his records
== END 2023-11-08 15:30 | disposition home or self-care (01) ==
PROVIDERS: PCP Internal Medicine; Visit Provider Nurse Practitioner Family
DX: G47.33 Obstructive sleep apnea (adult) (pediatric) (principal); R19.7 Diarrhea, unspecified; R25.1 Tremor, unspecified; K22.70 Barrett's esophagus without dysplasia; K21.9 Gastro-esophageal reflux disease without esophagitis; K57.90 Diverticulosis of intestine, part unspecified, without perforation or abscess without bleeding; K64.8 Other hemorrhoids
CPT/HCPCS: 99214

== ENCOUNTER 2024-01-21 15:37 | Outpatient (AMB) | payer OTHER, SELFPAY ==
--- NOTE | 2024-01-21 15:49 | A.OFFPC_ITS ---
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 Service Required: No Accompanied by: Self / Same As Patient Allergies No Known Allergies Allergy (Verified 01/21/24 16:04) Tobacco use date assessed: 01/21/24 Dental Screening Dental Screen Date: 01/21/24 Did you have a dental visit in the last 12 months?: Yes Did you have a dental problem in the last 6 months where you did not have access to dental care?: No Was dental information given to patient?: Patient has dentist HPI SHAQUILLE GUAN HPI Details Patient comes in today for his follow up visit States that he feels okay He underwent Da Brice paraesophageal hernia repair with toupee fundoplication last month on 12/22/[address] [facility] by Dr. Carter States that his GI symptoms have improved a lot since his surgery He currently denies any headaches or dizziness Denies any chest pains, no SOB No nausea/vomiting, no abdominal pain No change in bowel habits noted He did not get his follow up labs done prior to today's visit - states that he can try to get them done sometime in the next few days [facility] Medical History (Updated 01/23/24 @ 14:43 by Cyril Pradhan MD) Paraesophageal hernia with gastroesophageal reflux Internal hemorrhoids without complication Diverticulosis Gastroesophageal reflux disease concurrent with and due to paraesophageal hernia Physical exam Subscapularis (muscle) sprain Personal history of nicotine dependence Bilateral kidney stones Difficult airway for intubation Urinary frequency Low back pain Vitamin D deficiency Obstructive sleep apnea (~2008) Overweight (BMI 25.0-29.9) Anxiety Pure hypercholesterolemia 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) Benign essential hypertension Diabetes mellitus Surgical History (Updated 01/23/24 @ 14:43 by Cyril Pradhan MD) S/P laparoscopic fundoplication History of esophagogastroduodenoscopy (EGD) (~2020) History of colonoscopy (~2020) History of left knee surgery (~1992) History of cystoscopy (~2020) History of nasal surgery (~1996) History of arthroscopy of right shoulder (~2011) Family History Father Lung cancer Mother Medical history unknown Maternal Grandfather Myocardial infarction Maternal Uncle Myocardial infarction Social History Household Members: Significant Other and Children Housing: House Alcohol intake: current Alcohol intake frequency: does not drink Patient Tobacco Use Status: Former Tobacco user e-Cigarette/Vaping Use: Never Used Second Hand Smoke Exposure: Yes service: No Current occupational status: employed Cognitive needs: No Hearing needs: No Vision needs: Yes (reading glasses) Questionnaire PHQ-9 Over the last 2 weeks, how often have you been bothered by any of the following problems? 1. Little interest or pleasure in doing things: not at all 2. Feeling down, depressed, or hopeless: not at all 3. Trouble falling or staying asleep, or sleeping too much: not at all 4. Feeling tired or having little energy: not at all 5. Poor appetite or overeating: not at all 6. Feeling bad about yourself - or that you are a failure or have let yourself or your family down: not at all 7. Trouble concentrating on things, such as reading the newspaper or watching television: not at all 8. Moving or speaking so slowly that other people could have noticed. Or the opposite - being so fidgety or restless that you have been moving around a lot more than usual: not at all 9. Thoughts that you would be better off or of hurting yourself in some way: not at all Total score: 0 Depression Screening Interpretation: Negative Depression Screening Done: Yes 80742 - PHQ-9 Billing: Yes Source: Developed by Drs. Anderson Jordan, Marcy Varghese, Rubin Leon and colleagues, with an educational reva from [employer]. Thrive Questionnaire Date Thrive assessed: 01/21/24 I am a: Patient What is your living situation today?: I have a steady place to live Within the past 12 months, did the food you bought not last and you didn't have the money to get more?: Never true Within the past 12 months, did you worry whether your food would run out before you got money to buy more?: Never true Do you have trouble paying for medicines?: No Do you have trouble getting transportation to medical appointments?: No Do you have trouble paying your heating and electricity bill?: No Do you have trouble taking care of your child, family member or friend?: No Do you have trouble with day-to-day activities such as bathing, preparing meals, shopping, managing finances, etc.?: No Are you currently unemployed and looking for a job?: No Are you interested in more education?: No Please select the resources that you would like help with: None Currently or been in a relationship where the following occur: no concerns reported THRIVE Score: 0 AUDIT C Alcohol Use Questionnaire (AUDIT-C) 1. How often do you have a drink containing alcohol?: Monthly or less 2. How many drinks containing alcohol do you have on a typical day when you are drinking?: 1 or 2 3. How often do you have six or more drinks on one occasion?: Never Total Score: 1 Score Reviewed/Action Taken: Yes MICHAEL-7 AMB Questionnaire MICHAEL-7 Date MICHAEL - 7 assessed: 01/21/24 Feeling nervous, anxious, or on edge: 1 = Several days Not being able to stop or control worryin = Several days Worrying too much about different things: 1 = Several days Trouble relaxin = More than half the days Being so restless that it is hard to sit still: 1 = Several days Becoming easily annoyed or irritable: 1 = Several days Feeling afraid as if something awful might happen: 1 = Several days Total MICHAEL-7 score (0-4 normal; 5-9 mild; 10-14 moderate; 15-21 severe): 8 Source: Developed by Drs. Anderson Jordan, Marcy Varghese, Rubin Leon and colleagues, with an educational reva from [employer]. MICHAEL-7 Assessment Billing MICHAEL-7 Assessment Tool: MICHAEL-7 Assessment 52222 Review of Systems Const Denies chills, Denies fatigue, Denies fever(s) and Denies headache(s) ENT Denies dysphagia, Denies dizziness, Denies otalgia, Denies headache(s), Denies neck pain, Denies odynophagia and Denies sore throat Card Denies chest pain, Denies rapid heart rate, Denies irregular heart rhythm, Denies palpitations and Denies dyspnea Resp Denies chest congestion, Denies cough and Denies dyspnea GI Denies abdominal pain, Denies constipation, Denies dysphagia, Denies heartburn, Reports diarrhea, Reports loose stools (frequent, especially post-prandially), Denies nausea, Denies odynophagia and Denies vomiting Denies difficulty urinating, Denies dysuria and Denies urinary frequency Musc Reports back pain (on and off), Reports arthralgias (right shoulder - chronic), Denies neck pain and Reports stiffness (in the right shoulder) Skin/Breast Denies rash Neuro Denies dizziness, Denies headache(s) and Denies paresthesias Psych Reports anxiety Endo Denies fatigue and Denies palpitations Physical exam (Primary Care) Vital Signs: Last Vital Signs Pulse 70 01/21/24 15:55 BP 92/64 01/21/24 15:55 Pulse Ox 97 01/21/24 15:55 Oxygen Delivery Method Room Air 01/21/24 15:55 BMI result Body Mass Index 27.1 Tobacco/Smoking Status: Tobacco use Status Tobacco use date assessed 01/21/24 01/21/24 16:04 Patient Tobacco Use Status Former Tobacco user 01/21/24 15:49 e-Cigarette/Vaping Use Never Used 01/21/24 15:49 PHQ-9: PHQ-9 Score PHQ-9: Total score 0 01/21/24 16:12 Depression Screening Interpretation: Negative Thrive Assessment: Date of Thrive Assessment Date Thrive assessed 01/21/24 01/21/24 16:04 Currently or been in a relationship where the following occur: no concerns reported Const General: no acute distress and alert HENMT Ears: TM's normal bilaterally and EAC's normal Throat: Yes posterior oropharynx normal and Yes tonsils normal (no TP congestion) Neck Neck: Yes no lymphadenopathy and Yes supple Thyroid: Thyroid normal Resp Auscultation: clear to auscultation bilaterally, no rales and no wheezes Cardio Rate: regular rate Rhythm: regular rhythm Heart sounds: no murmurs GI Palpation (GI): Soft to palpation and nontender Auscultation: normal bowel sounds General: Yes no CVA tenderness Back/Spine/Pelvis Back: no CVA tenderness Thoracic/Lumbar Spine: thoracic and lumbar spine normal to inspection Skin Rashes: no rashes Extrem General: Yes no clubbing, cyanosis or edema Right upper extremity: shoulder/upper arm Details: tenderness Location: of the A-C joint and abnormal ROM ((+) pain in the shoulder with active ROM); no swelling Results AMB Hemoglobin A1c AMB Hemoglobin A1c 6.9 % Last Edit by DEE DEE Gordon on 01/21/24 16:06 Results Reviewed Results Reviewed: Laboratory Last Values Hgb A1c (Clinic) 6.9 % (4.0-6.0) H 01/21/24 16:06 Assessment and Plan Assessment & Plan (1) Diabetes mellitus: Code(s): E11.9 - Type 2 diabetes mellitus without complications Qualifiers: Diabetes mellitus complication status: without complication Diabetes mellitus [facility] insulin use: without [facility] use Diabetes mellitus type: type 2 Qualified Code(s): E11.9 - Type 2 diabetes mellitus without complications Plan: In-office HgbA1c done today is at 6.9% (was at 7.0% on his labs done a few months ago) -? goal is <6.5% Reinforced diabetic diet Continue Metformin ER 500 mg BID (2) Benign essential hypertension: Code(s): I10 - Essential (primary) hypertension Plan: Reinforced low-sodium diet -? goal is systolic BP of around 120 mm or less Continue Lisinopril 2.5 mg QD and Metoprolol ER 100 mg QD (is taking this primarily for his AVNRT) (3) Pure hypercholesterolemia: Code(s): E78.00 - Pure hypercholesterolemia, unspecified Plan: Patient was not able to get his follow up labs done prior to his visit today - is instructed to try to get them done MAGGI Reinforced low cholesterol diet Continue Fenofibrate 160 mg QD He has been advised by cardiology previously to start on Atorvastatin 20 mg QD but he still prefers to hold off on doing this Will recheck his labs and fasting lipids in 4 months for follow up (4) AVNRT (AV clint re-entry tachycardia): Code(s): I47.1 - Supraventricular tachycardia Plan: Stable/ controlled on Metoprolol ER 100 mg QD Follow-up with cardiology as scheduled (5) Obstructive sleep apnea: Onset Date: ~2008 Code(s): G47.33 - Obstructive sleep apnea (adult) (pediatric) Plan: Continue using his CPAP device when sleeping at night Follow up with Sleep Medicine as scheduled (6) Paraesophageal hernia with gastroesophageal reflux: Code(s): K44.9 - Diaphragmatic hernia without obstruction or gangrene; K21.9 - Gastro- esophageal reflux disease without esophagitis Plan: He underwent Da Brice paraesophageal hernia repair with toupee fundoplication last month on 12/22/[address] [facility] by Dr. Carter, with significant improvements of his symptoms since Dietary restrictions reinforced Continue Omeprazole 20 mg QD Follow up with GI as scheduled (7) Frequent loose stools: Code(s): R19.7 - Diarrhea, unspecified Qualifiers: Diarrhea type: unspecified type Qualified Code(s): R19.7 - Diarrhea, unspecified Plan: Patient states that he has been dealing with this for years now and that his symptoms seem more prominent postprandially Is currently seeing GI for further evaluation and management of this - will likely be getting EGD and colonoscopy done soon Have discussed, as in the past, that his symptoms may be related to some of his current Rx, particularly his Metformin and Omeprazole, although patient does not think so Recalls that his symptoms did not improve or subside when he stopped taking his Metformin and Omeprazole at some point over the past few years and thinks that his loose stools started BEFORE he began taking both of these meds (8) Degenerative joint disease of right shoulder: Code(s): M19.011 - Primary osteoarthritis, right shoulder Qualifiers: Osteoarthritis type: post-traumatic Qualified Code(s): M19.111 - Post- traumatic osteoarthritis, right shoulder Plan: Chronic - symptoms have been mostly manageable Gets cortisone injections from orthopedics when needed and?takes Oxycodone 15 mg once a day PRN only for increased pain Follow-up with Orthopedics ([facility]) as scheduled (9) Vitamin D deficiency: Code(s): E55.9 - Vitamin D deficiency, unspecified Plan: Continue Vitamin D3 1000 units QD (10) Anxiety: Code(s): F41.9 - Anxiety disorder, unspecified Plan: Continue Paroxetine 30 mg QD (11) Overweight (BMI 25.0-29.9): Comment: He is only moderately overweight. The main cause of his sleep apnea is RETROGANTHIA of the lower jaw. But still it will be helpful if he could lose 5-10 lb of weight. Code(s): E66.3 - Overweight Plan: Reinforced diet/exercise as tolerated/lose weight Plan Follow up in 4 months Orders: Orders AMB Hemoglobin A1c 01/21/24 E11.9 - Type 2 diabetes mellitus without complications Lipid Panel 4 Months E78.00 - Pure hypercholesterolemia, unspecified Comprehensive Moca. Panel Fast 4 Months E78.00 - Pure hypercholesterolemia, unspecified Complete Blood Count Auto Diff 4 Months D64.9 - Anemia, unspecified Hemoglobin A1c 4 Months E11.9 - Type 2 diabetes mellitus without complications Coding Level of Care Code Est Pt Level 4 (18519) Diagnoses Type 2 diabetes mellitus without complication, without long-term current use of insulin E11.9 Diabetes mellitus complication status: without complication Diabetes mellitus [facility] insulin use: without [facility] use Diabetes mellitus type: type 2 Benign essential hypertension I10 Pure hypercholesterolemia E78.00 AVNRT (AV clint re-entry tachycardia) I47.1 Obstructive sleep apnea G47.33 Paraesophageal hernia with gastroesophageal reflux K44.9; K21.9 Diarrhea, unspecified type R19.7 Diarrhea type: unspecified type Post-traumatic osteoarthritis of right shoulder M19.111 Osteoarthritis type: post-traumatic Vitamin D deficiency E55.9 Anxiety F41.9 Overweight (BMI 25.0-29.9) E66.3 Additional Codes MICHALE-7 Assessment Billing - MICHAEL-7 Assessment Tool: MICHAEL-7 Assessment 19456 ([id number])
[2024-01-21 15:55] VITALS: BP 92/64; PULSE 70; O2SAT 97; BMI 27.1
== END 2024-01-21 16:30 | disposition home or self-care (01) ==
PROVIDERS: PCP Internal Medicine; Visit Provider Internal Medicine
DX: E11.9 Type 2 diabetes mellitus without complications (principal)
CPT/HCPCS: 83036; 99214

== ENCOUNTER 2024-02-08 10:41 | Outpatient (AMB) | payer OTHER, SELFPAY ==
[2024-02-08 10:43] VITALS: BP 96/62; PULSE 79; O2SAT 95
--- NOTE | 2024-02-08 10:43 | AM.OFFWIN_ITS ---
Intake Vital Signs 02/08/24 10:43 Height 5 ft 11 in BP 96/62 Blood Pressure Location Rt brachial Position Sitting Pulse 79 Pulse Source Pulse Oximeter Pulse Oximetry (%) 95 Oxygen Delivery Method Room Air Intake Visit Reasons: EST/chest palpitations, dizziness(lobby) Intake Note: pt is here for dizziness, stomach pain and feels like hes going to pass out. patient recently had hernia repair and thinks hes feeling this way because of the surgery possibly Patient Tobacco Use Status: Former Tobacco user Allergies No Known Allergies Allergy (Verified 02/08/24 11:06) Do you need a note to return to daycare/school/sports/work: No HPI EST/chest palpitations, dizziness(lobby) HPI Details 53 yr old male presents to the office fo r a sick visit. Had a Maricruz and fundoplication on December 29. Pt has been feeling sick and dizzy for the past few days Progressively tired. No diarrhea. Poor food intake.Reports symptoms of palpitations. In addition he is feeling gassy. 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) Benign essential hypertension Diabetes mellitus Surgical History S/P laparoscopic fundoplication History of esophagogastroduodenoscopy (EGD) (~2020) History of colonoscopy (~2020) History of left knee surgery (~1992) History of cystoscopy (~2020) History of nasal surgery (~1996) History of arthroscopy of right shoulder (~2011) Family History Father Lung cancer Mother Medical history unknown Maternal Grandfather Myocardial infarction Maternal Uncle Myocardial infarction Social History Household Members: Significant Other and Children Housing: House Alcohol intake: current Alcohol intake frequency: does not drink Patient Tobacco Use Status: Former Tobacco user e-Cigarette/Vaping Use: Never Used Second Hand Smoke Exposure: Yes service: No Current occupational status: employed Cognitive needs: No Hearing needs: No Vision needs: Yes (reading glasses) Physical Exam Vital Signs: Last Vital Signs Pulse 79 02/08/24 10:43 BP 96/62 02/08/24 10:43 Pulse Ox 95 02/08/24 10:43 Oxygen Delivery Method Room Air 02/08/24 10:43 Const General: cooperative and healthy appearing Nutritional Appearance: well nourished Orientation/consciousness: patient oriented x3 Limitations: no limitations HEENT Head: Yes normal to inspection Eyes Other: Pale sclera. General: appearance normal, both eyes and all related structures Neck Neck: Yes normal visual inspection Chest Chest palpation & inspection: normal palpation of entire chest wall Resp Effort & Inspection: normal respiratory effort Neuro General: patient oriented x3 Office Procedures EKG Details: NSR [id number], Complete Results AMB Random Glucose (hemocue) AMB Random Glucose (hemocue) 135 mg/dL Last Edit by Tani Lehman MA on 02/08/24 11:22 Assessment & Plan Assessment & Plan (1) Fatigue: Code(s): R53.83 - Other fatigue Plan: EKG was unremarkable. Chest X ray was unremarkable. Pale sclera suggests underlying anemia, which could explain some of his symptoms. Will call with results of blood work. Orders: Orders AMB EKG-In Office Today R07.9 - Chest pain, unspecified XR chest 2V Today R05.9 - Cough, unspecified Coding Level of Care Code Est Pt Level 4 (81182) Diagnoses Fatigue R53.83 CPT Codes EKG - CPT: 51846-[id number], Complete ([id number])
== END 2024-02-08 12:08 | disposition home or self-care (01) ==
PROVIDERS: PCP Internal Medicine; Visit Provider Internal Medicine
DX: R53.83 Other fatigue (principal)
CPT/HCPCS: 93000; 99214

== ENCOUNTER 2024-02-08 11:04 | Outpatient (REF) | payer OTHER, SELFPAY ==
--- NOTE | ~2024-02-08 | XR_ITS ---
EXAMINATION: XR CHEST CLINICAL INFORMATION: Cough, unspecified COMPARISON: Chest 04/16/2023 TECHNIQUE: 2 views of the chest were obtained. 11:10 AM FINDINGS: No significant abnormality is noted involving the heart, lungs, mediastinum, bony thorax or soft tissues. XR/XR chest 2V IMPRESSION: No acute disease.
[2024-02-08 13:23] LABS: Hemoglobin 14.9 g/dl (14.0-18.0); Mean Corpuscular HGB Conc 33.9 g/dl (31.0-36.0); Mean Corpuscular Hemoglobin 27.7 pg (27.0-33.0); Mean Corpuscular Volume 81.8 fL (80.0-98.0); Mean Platelet Volume 10.1 fL (9.4-12.4); Platelet Count 324 X10*3/uL (160-400); Red Blood Count 5.38 X10*6/uL (4.60-5.80); Red Cell Distribution Width 14.6 % (11.0-16.0); White Blood Count 10.6 X10*3/uL (4.8-10.8)
[2024-02-08 20:18] LABS: Alanine Aminotransferase 29 U/L (0-40); Alkaline Phosphatase 74 U/L (39-117); Anion Gap 16 (12-20); Aspartate Amino Transferase 16 U/L (5-37); Bilirubin Direct 0.2 mg/dL (0.0-0.5); Bilirubin Total 0.5 mg/dL (0.0-1.0); Blood Urea Nitrogen 15 mg/dL (9-16); Calcium 9.2 mg/dL (8.4-10.2); Carbon Dioxide 22 mmol/L (22-29); Chloride 103 mmol/L (96-108); Estimated Glomerular Filt Rate > 60; Glucose Random 124 mg/dL (60-115); Potassium 4.2 mmol/L (3.3-5.1); Sodium 137 mmol/L (135-145); Total Protein 6.3 g/dL (6.5-8.0)
[2024-02-08 20:33] LABS: Thyroid Stimulating Hormone 0.94 uIU/mL (0.32-4.0)
== END 2024-02-08 11:05 | disposition home or self-care (01) ==
LOC: HO.HMGCX 11:04
PROVIDERS: PCP Internal Medicine; Visit Provider Internal Medicine
DX: R05.9 Cough, unspecified (principal); R53.83 Other fatigue
CPT/HCPCS: 36415; 71046; 80048; 80076; 84443; 85027

== ENCOUNTER 2024-04-26 10:02 | Outpatient (REF) | payer OTHER, SELFPAY ==
[2024-04-26 10:24] LABS: MANUAL DIFF FLAG NO
[2024-04-26 10:52] LABS: Basophils Percent Auto 0.7 % (0-2); Eosinophils Absolute Auto 0.1 X10*3/uL (0.0-0.4); Eosinophils Percent Auto 1.4 % (0-4); Hematocrit 45.3 % (42.0-52.0); Hemoglobin 15.3 g/dl (14.0-18.0); Imm Gran Abs Auto 0.02 X10*3/uL (0.00-0.03); Imm Gran Pct Auto 0.3 % (0.0-0.4); Lymphocytes Absolute Auto 1.8 X10*3/uL (1.2-4.9); Lymphocytes Percent Auto 29.8 % (20-40); Mean Corpuscular HGB Conc 33.8 g/dl (31.0-36.0); Mean Corpuscular Hemoglobin 27.2 pg (27.0-33.0); Mean Corpuscular Volume 80.6 fL (80.0-98.0); Mean Platelet Volume 9.5 fL (9.4-12.4); Monocytes Absolute Auto 0.4 X10*3/uL (0.1-1.2); Monocytes Percent Auto 6.5 % (2-11); Neutrophils Absolute Auto 3.6 x10*3/uL (2.0-8.3); Neutrophils Percent Auto 61.3 % (45-73); Platelet Count 267 X10*3/uL (160-400); Red Blood Count 5.62 X10*6/uL (4.60-5.80); Red Cell Distribution Width 12.6 % (11.0-16.0); White Blood Count 5.9 X10*3/uL (4.8-10.8)
[2024-04-26 11:03] LABS: Estimated Average Glucose 131 mg/dL; Hemoglobin A1c % 6.2 % (<6.0)
[2024-04-26 11:41] LABS: Alanine Aminotransferase 24 U/L (0-40); Albumin Level 4.4 g/dL (3.5-5.0); Alkaline Phosphatase 46 U/L (39-117); Anion Gap 12 (12-20); Aspartate Amino Transferase 16 U/L (5-37); Bilirubin Total 0.6 mg/dL (0.0-1.0); Blood Urea Nitrogen 16 mg/dL (9-16); Calcium 9.7 mg/dL (8.4-10.2); Carbon Dioxide 26 mmol/L (22-29); Chloride 106 mmol/L (96-108); Cholesterol 129 mg/dL (<200); Estimated Glomerular Filt Rate > 60; Glucose Fasting 179 mg/dL (60-99); HDL Cholesterol 27 mg/dL (>40); LDL Cholesterol Calculated 73 mg/dL (<100); Potassium 3.7 mmol/L (3.3-5.1); Sodium 140 mmol/L (135-145); Total Protein 6.9 g/dL (6.5-8.0); Triglycerides 146 mg/dL (<150)
[2024-04-26 11:57] LABS: TSH reflex Free T4 0.53 uIU/mL (0.32-4.0); Vitamin D 25-OH Total 43.5 ng/mL (>30)
== END 2024-04-26 10:03 | disposition home or self-care (01) ==
LOC: HO.LAB 10:02
PROVIDERS: PCP Internal Medicine; Visit Provider Internal Medicine
DX: E78.00 Pure hypercholesterolemia, unspecified (principal); I10 Essential (primary) hypertension; E55.9 Vitamin D deficiency, unspecified; E11.9 Type 2 diabetes mellitus without complications
CPT/HCPCS: 36415; 80053; 80061; 82306; 83036; 84443; 85025

== ENCOUNTER 2024-05-03 15:21 | Outpatient (AMB) | payer OTHER, SELFPAY ==
--- NOTE | 2024-05-03 15:51 | MHC.PC.OV ---
Vital Signs 05/03/24 15:57 Height 5 ft 11 in Weight 183 lb 6 oz BMI 25.6 BP 96/70 Blood Pressure Location Lt brachial Position Sitting Pulse 83 Pulse Source Pulse Oximeter Pulse Oximetry (%) 96 Oxygen Delivery Method Room Air Intake Visit Reasons: 4 Month F/U User Experience Analyst Required: No Accompanied by: Self / Same As Patient Allergies No Known Allergies Allergy (Verified 05/03/24 16:20) Medication List - Last Reconciled 05/03/24 by Cyril Pradhan MD blood-glucose meter,continuous (Dexcom G6 Stave Planer Tender) As directed blood-glucose sensor (Dexcom G6 Sensor device) As directed blood-glucose transmitter (Dexcom G6 Transmitter device) As directed cholecalciferol (vitamin D3) (Vitamin D3) 25 mcg PO DAILY icosapent ethyl (Vascepa) 2 grams (2 x 1 gram) PO BID 90 days lisinopril 2.5 mg PO DAILY 90 days metformin ER 500 mg PO BID metoprolol succinate ER 100 mg PO DAILY 90 days multivitamin 1 tab PO DAILY omeprazole 20 mg PO DAILY ondansetron 4 mg PO Q8H paroxetine HCl 30 mg PO QAM Tobacco use date assessed: 01/21/24 Dental Screening Dental Screen Date: 01/21/24 HPI 4 Month F/U HPI Details Patient comes in today for his follow up visit States that he currently feels okay He denies any headaches; still has occasional dizzy spells that tend to be triggered when he gets up and/or moves around too quickly He denies any chest pains, no SOB No nausea/vomiting, no abdominal pain No change in bowel habits noted States that he recently from his fiancee and is still trying to sort out the aftermath of his breakup at present and he has been experiencing increased anxiety lately He has been taking his Hydroxyzine, which helps but feels that it is not working well enough and would like to get something that will work better but would like to have it only for a short time - states that he has no plans to stay on the medication any longer than he has to He had his follow up labs done last week - to discuss his results [facility] Medical History Paraesophageal hernia with gastroesophageal reflux Internal hemorrhoids without complication Diverticulosis Gastroesophageal reflux disease concurrent with and due to paraesophageal hernia Physical exam Subscapularis (muscle) sprain Personal history of nicotine dependence Bilateral kidney stones Difficult airway for intubation Urinary frequency Low back pain Vitamin D deficiency Obstructive sleep apnea (~2008) Overweight (BMI 25.0-29.9) Anxiety Pure hypercholesterolemia 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) Benign essential hypertension Diabetes mellitus Surgical History S/P laparoscopic fundoplication History of esophagogastroduodenoscopy (EGD) (~2020) History of colonoscopy (~2020) History of left knee surgery (~1992) History of cystoscopy (~2020) History of nasal surgery (~1996) History of arthroscopy of right shoulder (~2011) Family History Father Lung cancer Mother Medical history unknown Maternal Grandfather Myocardial infarction Maternal Uncle Myocardial infarction Social History Household Members: Significant Other and Children Housing: House Alcohol intake: current Alcohol intake frequency: does not drink Patient Tobacco Use Status: Former Tobacco user e-Cigarette/Vaping Use: Never Used Second Hand Smoke Exposure: Yes service: No Current occupational status: employed Cognitive needs: No Hearing needs: No Vision needs: Yes (reading glasses) Questionnaire Thrive Questionnaire Date Thrive assessed: 01/21/24 MICHAEL-7 AMB Questionnaire MICHAEL-7 Date MICHAEL - 7 assessed: 01/21/24 Source: Developed by Drs. Anderson Jordan, Marcy Varghese, Rubin Leon and colleagues, with an educational reva from [employer]. Review of Systems Const Denies chills, Denies fatigue, Denies fever(s) and Denies headache(s) ENT Denies dysphagia, Reports dizziness (on and off, especially when he gets up too quickly), Denies otalgia, Denies headache(s), Denies neck pain, Denies odynophagia and Denies sore throat Card Denies chest pain, Denies rapid heart rate, Denies irregular heart rhythm, Denies palpitations and Denies dyspnea Resp Denies chest congestion, Denies cough and Denies dyspnea GI Denies abdominal pain, Denies constipation, Denies dysphagia, Denies heartburn, Reports loose stools (frequent, especially post-prandially), Denies nausea, Denies odynophagia and Denies vomiting Denies difficulty urinating, Denies dysuria and Denies urinary frequency Musc Reports back pain (on and off), Reports arthralgias (right shoulder - chronic), Denies neck pain and Reports stiffness (in the right shoulder) Skin/Breast Denies rash Neuro Reports dizziness (on and off, especially when he gets up too quickly), Denies headache(s) and Denies paresthesias Psych Reports anxiety (increasing lately) Endo Denies fatigue and Denies palpitations Physical exam (Primary Care) Vital Signs: Last Vital Signs Pulse 83 05/03/24 15:57 BP 96/70 05/03/24 15:57 Pulse Ox 96 05/03/24 15:57 Oxygen Delivery Method Room Air 05/03/24 15:57 BMI result Body Mass Index 25.6 Tobacco/Smoking Status: Tobacco use Status Tobacco use date assessed 01/21/24 05/03/24 15:51 Patient Tobacco Use Status Former Tobacco user 05/03/24 15:51 e-Cigarette/Vaping Use Never Used 05/03/24 15:51 Thrive Assessment: Date of Thrive Assessment Date Thrive assessed 01/21/24 05/03/24 15:51 Const General: no acute distress and alert HENMT Ears: TM's normal bilaterally and EAC's normal Throat: Yes posterior oropharynx normal and Yes tonsils normal (no TP congestion) Neck Neck: Yes no lymphadenopathy and Yes supple Thyroid: Thyroid normal Resp Auscultation: clear to auscultation bilaterally, no rales and no wheezes Cardio Rate: regular rate Rhythm: regular rhythm Heart sounds: no murmurs GI Palpation (GI): Soft to palpation and nontender Auscultation: normal bowel sounds General: Yes no CVA tenderness Back/Spine/Pelvis Back: no CVA tenderness Thoracic/Lumbar Spine: lumbar spinal tenderness (mild) Skin Rashes: no rashes Extrem General: Yes no clubbing, cyanosis or edema Right upper extremity: shoulder/upper arm Details: tenderness Location: of the A-C joint and abnormal ROM ((+) pain in the shoulder with active ROM); no swelling Results Reviewed Results Reviewed: Laboratory Tests 01/21/24 04/26/24 16:06 10:21 WBC 5.9 Hgb 15.3 Hct 45.3 Plt Count 267 Sodium 140 Potassium 3.7 Creatinine 0.77 Estimated GFR > 60 Fasting Glucose 179 H Hgb A1c (Clinic) 6.9 H Hemoglobin A1c % 6.2 H Calcium 9.7 AST 16 ALT 24 Triglycerides 146 Cholesterol 129 LDL Cholesterol, Calc 73 HDL Cholesterol 27 L 25-OH Vitamin D Total 43.5 TSH 0.53 Assessment and Plan Assessment & Plan (1) Diabetes mellitus: Code(s): E11.9 - Type 2 diabetes mellitus without complications Qualifiers: Diabetes mellitus type: type 2 Diabetes mellitus ad terminal makeup operator insulin use: without ad terminal makeup operator use Diabetes mellitus complication status: without complication Qualified Code(s): E11.9 - Type 2 diabetes mellitus without complications Plan: His HgbA1c was at 6.2% on his labs done last week (in-office HgbA1c was at 6.9% a few months ago) -? goal is <6.5% Reinforced diabetic diet Continue Metformin ER 500 mg BID (2) Benign essential hypertension: Code(s): I10 - Essential (primary) hypertension Plan: Reinforced low-sodium diet -? goal is systolic BP of around 120 mm or less Continue Metoprolol ER 100 mg QD (is taking this primarily for his AVNRT) Due to his recurrent dizziness, which appear to be orthostatic, wiill have patient HOLD his Lisinopril 2.5 mg QD for now and see how he does off Lisinopril for the next few months (3) Pure hypercholesterolemia: Code(s): E78.00 - Pure hypercholesterolemia, unspecified Plan: Results of his labs done last week reviewed and discussed with patient Reinforced low cholesterol diet Continue Fenofibrate 160 mg QD He has been advised by cardiology previously to start taking Atorvastatin 20 mg QD but he still prefers to hold off on doing this Will recheck his labs and fasting lipids in 4 months for follow up (4) AVNRT (AV clint re-entry tachycardia): Code(s): I47.1 - Supraventricular tachycardia Plan: Stable/ controlled on Metoprolol ER 100 mg QD Follow-up with cardiology as scheduled (5) Obstructive sleep apnea: Onset Date: ~2008 Code(s): G47.33 - Obstructive sleep apnea (adult) (pediatric) Plan: Continue using his CPAP device when sleeping at night Follow up with Sleep Medicine as scheduled (6) Paraesophageal hernia with gastroesophageal reflux: Code(s): K44.9 - Diaphragmatic hernia without obstruction or gangrene; K21.9 - Gastro-esophageal reflux disease without esophagitis Plan: He underwent [place] [facility]ice paraesophageal hernia repair with toupee fundoplication last month on 12/22/2023 at [facility] by Dr. Carter, with significant improvements of his symptoms since Dietary restrictions reinforced Continue Omeprazole 20 mg QD Follow up with GI as scheduled (7) Frequent loose stools: Code(s): R19.7 - Diarrhea, unspecified Qualifiers: Diarrhea type: unspecified type Qualified Code(s): R19.7 - Diarrhea, unspecified Plan: Patient states that he has been dealing with this for years now and that his symptoms seem more prominent postprandially Have discussed, as in the past, that his symptoms may be related to some of his current Rx, particularly his Metformin and Omeprazole, although patient does not think so Recalls that his symptoms did not improve or subside when he stopped taking his Metformin and Omeprazole at some point over the past few years and thinks that his loose stools started BEFORE he began taking both of these meds He had EGD and colonoscopy done in October 2023 - 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 - recommend repeat EGD in 2 to 3 years; colonoscopy came out normal and recommend repeat colonoscopy in 10 years Follow up with GI as scheduled (8) Degenerative joint disease of right shoulder: Code(s): M19.011 - Primary osteoarthritis, right shoulder Qualifiers: Osteoarthritis type: post-traumatic Qualified Code(s): M19.111 - Post-traumatic osteoarthritis, right shoulder Plan: Chronic - symptoms have been mostly manageable Gets cortisone injections from orthopedics when needed and?takes Oxycodone 15 mg once a day PRN only for increased pain although he has not taken Oxycodone in months now Follow-up with Orthopedics ([facility]) as scheduled (9) Vitamin D deficiency: Code(s): E55.9 - Vitamin D deficiency, unspecified Plan: Continue Vitamin D3 1000 units QD (10) Anxiety: Code(s): F41.9 - Anxiety disorder, unspecified Plan: Continue Paroxetine 30 mg QD - patient prefers not to have this increased as much as possible despite his recent increased anxiety Will start him for now on Lorazepam 0.5 mg BID PRN as a short-term solution for his anxiety (11) Overweight (BMI 25.0-29.9): Comment: He is only moderately overweight. The main cause of his sleep apnea is RETROGANTHIA of the lower jaw. But still it will be helpful if he could lose 5-10 lb of weight. Code(s): E66.3 - Overweight Plan: Reinforced diet/exercise as tolerated/lose weight Plan Follow up in 4 months Orders: Orders Hemoglobin A1c 4 Months E11.9 - Type 2 diabetes mellitus without complications Comprehensive [place]. Panel Fast 4 Months E78.00 - Pure hypercholesterolemia, unspecified UA CC w/rflx Micro + Cult 4 Months R30.0 - Dysuria Complete Blood Count Auto Diff 4 Months D64.9 - Anemia, unspecified Lipid Panel 4 Months E78.00 - Pure hypercholesterolemia, unspecified Microalbumin, Random (w Creat) 4 Months E11.9 - Type 2 diabetes mellitus without complications Medications: New lorazepam 0.5 mg PO BID PRN 30 tabs 0RF anxiety On Hold lisinopril Hold Comment: Doctor's Order 2.5 mg PO DAILY 90 days 90 tabs 1RF Coding Level of Care Code Est Pt Level 4 (48248) Complex EM visit Add On G2211 Diagnoses Type 2 diabetes mellitus without complication, without long-term current use of insulin E11.9 Diabetes mellitus type: type 2 Diabetes mellitus ad terminal makeup operator insulin use: without ad terminal makeup operator use Diabetes mellitus complication status: without complication Benign essential hypertension I10 Pure hypercholesterolemia E78.00 AVNRT (AV clint re-entry tachycardia) I47.1 Obstructive sleep apnea G47.33 Paraesophageal hernia with gastroesophageal reflux K44.9; K21.9 Diarrhea, unspecified type R19.7 Diarrhea type: unspecified type Post-traumatic osteoarthritis of right shoulder M19.111 Osteoarthritis type: post-traumatic Vitamin D deficiency E55.9 Anxiety F41.9 Overweight (BMI 25.0-29.9) E66.3
[2024-05-03 15:57] VITALS: BP 96/70; PULSE 83; O2SAT 96; BMI 25.6
== END 2024-05-03 16:28 | disposition home or self-care (01) ==
PROVIDERS: PCP Internal Medicine; Visit Provider Internal Medicine
DX: E11.9 Type 2 diabetes mellitus without complications (principal); I10 Essential (primary) hypertension; E78.00 Pure hypercholesterolemia, unspecified; I47.10 Supraventricular tachycardia, unspecified; G47.33 Obstructive sleep apnea (adult) (pediatric); K44.9 Diaphragmatic hernia without obstruction or gangrene; K21.9 Gastro-esophageal reflux disease without esophagitis; R19.7 Diarrhea, unspecified; M19.111 Post-traumatic osteoarthritis, right shoulder; E55.9 Vitamin D deficiency, unspecified; F41.9 Anxiety disorder, unspecified; E66.3 Overweight
CPT/HCPCS: 99214

== ENCOUNTER 2024-07-11 15:38 | Outpatient (AMB) | payer OTHER, SELFPAY ==
--- NOTE | 2024-07-11 15:50 | MHC.OFFVIS ---
Vital Signs 07/11/24 15:51 Height 5 ft 11 in Weight 194 lb 14.218 oz BMI 27.2 BP 104/66 Blood Pressure Location Rt brachial Position Sitting Pulse 64 Pulse Source Pulse Oximeter Pulse Oximetry (%) 97 Oxygen Delivery Method Room Air Intake Visit Reasons: f/u Barretts Intake Note: Relevant Flags or Indicators ? Requires Business Continuity Manager? N Fredrick presents in office today for a scheduled FUV ~8 mos. CC; Since last visit; labs ordered ? done per their PCP. Rx ordered ? no. Diagnostics/images ordered ? done per their PCP. Relevant GI Sx as reported per pt? Reflux - Much better than it had been. Pt is due for EGD per Yoder's. ? Fecal abnormalities: ?? Diarrhea -- Frequent diarrhea. Pt taking x3 tabs of imodium daily. Pt would like to discuss possible Rx to remedy this issue. ? Abdominal Pain: Lower B/L ? Hx of any recent surgeries? Hiatal hernia ([facility] ~ November 2023). Pt reports taking both esomeprazole and omeprazole 20 mg. Business Continuity Manager Required: No Allergies No Known Allergies Allergy (Verified 07/11/24 16:00) HPI HPI f/u Barretts: Details: LAST VISIT Obstructive sleep apnea Frequent loose stools Tremor Yoder's esophagus determined by endoscopy GERD (gastroesophageal reflux disease) Diverticulosis Internal hemorrhoids without complication Plan Patient will continue taking omeprazole daily. Avoid dietary triggers and late night snacking. Barretts esophagus found on endoscopy. No polyps found on colonoscopy. Moderate diverticulosis of sigmoid colon and internal hemorrhoids. Patient will continue taking Citrucel to help him bulk his stools. Patient reports tremors most likely from ketamine and propofol. Will check magnesium, vitamin B12, vitamin D level, folate. Referral to Neurology sent. Patient will call the office if his symptoms get worse. Most likely his symptoms are related to ketamine. Reassured patient that symptoms will wear off eventually, however patient was told to call the office if his symptoms will get worse. Patient will follow-up in the office in 3 months, sooner on as needed basis. Patient is agreeable to this plan and verbalizes understanding of instructions he was given the opportunity to ask questions all questions answered. ? Thank you for allowing me to participate in his care Orders Orders Vitamin B12 and Folate 11/08/23 R19.7 Magnesium 11/08/23 N18.9 Complete Blood Count no Diff 11/08/23 K21.9 Referrals Neurology Referral Z01.818 Medications New magnesium oxide 400 mg PO DAILY 30 caps 2RF K59.04 TODAY'S VISIT Patient is here today for follow-up. Patient reports that he has been feeling well after he started taking PPI. Patient is taking currently omeprazole and esomeprazole. His symptoms of acid reflux are suppressed. Patient denies dyspepsia, dysphagia or odynophagia. Patient denies any abdominal pain. Reports lower abdominal cramping when he has to have a bowel movement. Patient reports that he has to take 2-3 Imodium so he does not have diarrhea. Patient states that currently he is not taking any fiber supplements. Patient denies any melena, hematochezia.. Paraesophageal hernia repair done in November. Patient reports that he has significant improvement in his symptoms. 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) Benign essential hypertension Diabetes mellitus Surgical History (Updated 07/11/24 @ 16:30 by Samia Giron DIVING COACHElysia) Status post repair of paraesophageal diaphragmatic hernia S/P laparoscopic fundoplication History of esophagogastroduodenoscopy (EGD) (~2020) History of colonoscopy (~2020) History of left knee surgery (~1992) History of cystoscopy (~2021) History of nasal surgery (~1996) History of arthroscopy of right shoulder (~2011) Family History Father Lung cancer Mother Medical history unknown Maternal Grandfather Myocardial infarction Maternal Uncle Myocardial infarction Social History Household Members: Significant Other and Children Housing: House Alcohol intake: current Alcohol intake frequency: does not drink Patient Tobacco Use Status: Former Tobacco user e-Cigarette/Vaping Use: Never Used Second Hand Smoke Exposure: Yes service: No Current occupational status: employed Cognitive needs: No Hearing needs: No Vision needs: Yes (reading glasses) Review of Systems Const Denies weight gain and Denies weight loss ENT Reports no additional complaints, Reports dysphagia and Denies odynophagia Card Reports no additional complaints Resp Reports no additional complaints GI Reports abdominal pain (cramping), Denies belching, Denies melena, Denies bloating, Denies change in bowel habits, Reports dysphagia, Denies excessive flatus, Denies dyspepsia, Denies heartburn, Denies diarrhea, Reports loose stools, Denies nausea, Denies odynophagia and Denies vomiting Reports no additional complaints Musc Reports no additional complaints Neuro Reports no additional complaints Psych Reports no additional complaints Endo Reports no additional complaints Physical Exam Const General: healthy appearing, no acute distress and well developed Nutritional Appearance: well nourished Orientation/consciousness: patient oriented x3 Resp Effort & Inspection: normal respiratory effort, able to speak in complete sentences, no tracheal deviation and symmetric chest movement Auscultation: clear to auscultation bilaterally Cardio Rate: regular rate GI Inspection: Yes normal to inspection and No distended Palpation (GI): Soft to palpation, not firm, nontender and No hepatosplenomegaly present Auscultation: normal bowel sounds General: Yes no CVA tenderness Back/Spine/Pelvis Back: no CVA tenderness Skin General skin exam: elasticity normal, turgor normal and dry skin Neuro General: patient oriented x3 Psych Appearance: grossly normal Mental Status: mental status grossly normal Assessment & Plan Assessment & Plan (1) Diverticulosis: Code(s): K57.90 - Diverticulosis of intestine, part unspecified, without perforation or abscess without bleeding Category: Medical (2) Frequent loose stools: Code(s): R19.7 - Diarrhea, unspecified Category: Medical Qualifiers: Diarrhea type: unspecified type Qualified Code(s): R19.7 - Diarrhea, unspecified (3) GERD without esophagitis: Code(s): K21.9 - Gastro-esophageal reflux disease without esophagitis Category: Medical (4) Yoder's esophagus determined by endoscopy: Code(s): K22.70 - Yoder's esophagus without dysplasia (5) GERD (gastroesophageal reflux disease): Code(s): K21.9 - Gastro-esophageal reflux disease without esophagitis Qualifiers: Esophagitis presence: esophagitis presence not specified Qualified Code(s): K21.9 - Gastro-esophageal reflux disease without esophagitis (6) Status post repair of paraesophageal diaphragmatic hernia: Code(s): Z98.890 - Other specified postprocedural states; Z87.19 - Personal history of other diseases of the digestive system Category: Surgical Plan Patient will be set up for upper endoscopy to check on Barretts. Symptoms currently are better. Patient will take as omeprazole and stop omeprazole. Patient will call the office if he will have acid reflux or epigastric pain or discomfort, we can increase dose then. Encouraged patient to increase fiber in his diet and take probiotics. May take Imodium on as-needed basis. Again discussed with patient low FODMAP diet. List of food recommended as well as list of food to avoid given to patient. I will see patient after the procedure, sooner on as needed basis. He is agreeable to this plan and verbalizes understanding of instructions. He was given the opportunity to ask questions and all questions answered. Thank you for allowing me to participate in his care Coding Level of Care Code Est Pt Level 3 (67183) Diagnoses Diverticulosis K57.90 Diarrhea, unspecified type R19.7 Diarrhea type: unspecified type GERD without esophagitis K21.9 Yoder's esophagus determined by endoscopy K22.70 Gastroesophageal reflux disease, unspecified whether esophagitis present K21.9 Esophagitis presence: esophagitis presence not specified Status post repair of paraesophageal diaphragmatic hernia Z98.890; Z87.19 Time Spent (min) 30 Comment 20 minutes spent with patient and additional 10 minutes spent reviewing his records
[2024-07-11 15:51] VITALS: BP 104/66; PULSE 64; O2SAT 97; BMI 27.2
== END 2024-07-11 16:20 | disposition home or self-care (01) ==
PROVIDERS: PCP Internal Medicine; Visit Provider Nurse Practitioner Family
DX: K57.90 Diverticulosis of intestine, part unspecified, without perforation or abscess without bleeding (principal); R19.7 Diarrhea, unspecified; K21.9 Gastro-esophageal reflux disease without esophagitis; K22.70 Barrett's esophagus without dysplasia; Z98.890 Other specified postprocedural states; Z87.19 Personal history of other diseases of the digestive system
CPT/HCPCS: 99213

== ENCOUNTER → 2024-07-11 15:38 | Outpatient (BNVA) | payer OTHER, SELFPAY | PROVIDERS: PCP Internal Medicine; Visit Provider Nurse Practitioner Family ==

== ENCOUNTER 2024-09-06 15:13 | Outpatient (AMB) | payer OTHER, SELFPAY ==
[2024-09-06 15:14] VITALS: BP 100/78; PULSE 75; O2SAT 98; BMI 26.8
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
== END 2024-09-06 15:55 | disposition home or self-care (01) ==
PROVIDERS: PCP Internal Medicine; Visit Provider Internal Medicine
DX: E11.9 Type 2 diabetes mellitus without complications (principal); E78.00 Pure hypercholesterolemia, unspecified; I47.10 Supraventricular tachycardia, unspecified; R42 Dizziness and giddiness; G47.33 Obstructive sleep apnea (adult) (pediatric); K44.9 Diaphragmatic hernia without obstruction or gangrene; K21.9 Gastro-esophageal reflux disease without esophagitis; K22.70 Barrett's esophagus without dysplasia; K29.70 Gastritis, unspecified, without bleeding; R19.7 Diarrhea, unspecified; M19.111 Post-traumatic osteoarthritis, right shoulder; E55.9 Vitamin D deficiency, unspecified; F41.9 Anxiety disorder, unspecified; E66.3 Overweight

== ENCOUNTER → 2024-09-06 15:13 | Outpatient (BNVA) | payer OTHER, SELFPAY | PROVIDERS: PCP Internal Medicine; Visit Provider Internal Medicine | DX: E11.9 Type 2 diabetes mellitus without complications (principal); E78.00 Pure hypercholesterolemia, unspecified; I47.10 Supraventricular tachycardia, unspecified; R42 Dizziness and giddiness; G47.33 Obstructive sleep apnea (adult) (pediatric); K44.9 Diaphragmatic hernia without obstruction or gangrene; K21.9 Gastro-esophageal reflux disease without esophagitis; K22.70 Barrett's esophagus without dysplasia; K29.70 Gastritis, unspecified, without bleeding; R19.7 Diarrhea, unspecified; M19.111 Post-traumatic osteoarthritis, right shoulder; T14.90XS Injury, unspecified, sequela; E55.9 Vitamin D deficiency, unspecified; F41.9 Anxiety disorder, unspecified; E66.3 Overweight; Z68.26 Body mass index [BMI] 26.0-26.9, adult; Z79.84 Long term (current) use of oral hypoglycemic drugs; Z79.899 Other long term (current) drug therapy; Z99.89 Dependence on other enabling machines and devices | CPT/HCPCS: 83036; 96127 ==

== ENCOUNTER 2024-10-10 14:49 | Outpatient (AMB) | payer OTHER, SELFPAY ==
--- NOTE | 2024-10-10 14:51 | A.OFFVIS_ITS ---
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 He has some symptoms of orthostatic dizziness. Also concerned about his esophageal health. Underwent diaphragmatic hernia repair last year. Still healing from that. Lost a bunch of weight related to it. Occasional palpitations, had 1 day had frequent what appears to be skipped heartbeats. Associated shortness of breath. Does not get exertional shortness of breath or chest pain. Worried about vascular disease. His last LDL was well optimized. Diabetes under better control. 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) Benign essential hypertension Diabetes mellitus Surgical History Status post repair of paraesophageal diaphragmatic hernia S/P laparoscopic fundoplication History of esophagogastroduodenoscopy (EGD) (~2020) History of colonoscopy (~2020) History of left knee surgery (~1992) History of cystoscopy (~2020) History of nasal surgery (~1996) History of arthroscopy of right shoulder (~2011) Family History Father Lung cancer Mother Medical history unknown Maternal Grandfather Myocardial infarction Maternal Uncle Myocardial infarction Social History Household Members: Significant Other and Children Housing: House Alcohol intake: current Alcohol intake frequency: does not drink Patient Tobacco Use Status: Former Tobacco user e-Cigarette/Vaping Use: Never Used Second Hand Smoke Exposure: Yes service: No Current occupational status: employed Cognitive needs: No Hearing needs: No Vision needs: Yes (reading glasses) Review of Systems Const Denies chills, Denies fatigue, Denies fever(s), Denies frequent falls, Denies weakness, Denies weight gain and Denies weight loss ENT Denies dizziness Card Denies chest pain, Denies leg edema, Denies lightheadedness, Denies palpitations, Denies dyspnea, Denies dyspnea on exertion, Denies orthopnea and Denies other (loss of consciousness) Resp Denies cough, Denies dyspnea and Denies dyspnea on exertion GI Denies hematochezia and Denies change in stool character Musc Denies abnormal gait, Denies muscle weakness, Denies numbness, Denies radiating pain into limb and Denies tingling Neuro Denies abnormal gait, Denies dizziness, Denies frequent falls, Denies numbness, Denies tingling and Denies weakness Endo Denies fatigue and Denies palpitations Physical Exam Vital Signs: Last Vital Signs Pulse 75 10/10/24 14:52 BP 118/72 10/10/24 14:52 BMI result Body Mass Index 27.1 Const General: cooperative, comfortable, no acute distress, alert and awake Nutritional Appearance: average body habitus Orientation/consciousness: patient oriented x3 Limitations: no limitations HEENT Head: Yes normocephalic and Yes atraumatic Neck Neck: Yes trachea midline, Yes supple and Yes no JVD Chest Chest palpation & inspection: normal inspection of the chest Resp Effort & Inspection: normal respiratory effort Auscultation: clear to auscultation bilaterally Cardio Jugular venous distension: no JVD Palpation: normal PMI Rate: regular rate Rhythm: regular rhythm Heart sounds: S1 normal heart sound present and S2 normal heart sound present GI Auscultation: normal bowel sounds Skin General skin exam: no rashes or lesions noted Neuro General: patient oriented x3 and no focal motor deficits Extrem General: Yes no clubbing, cyanosis or edema Psych Appearance: grossly normal Office Procedures EKG Details: EKG shows normal sinus rhythm with normal EKG 21857-[id number], Complete Assessment & Plan Assessment & Plan (1) AVNRT (AV clint re-entry tachycardia): Code(s): I47.1 - Supraventricular tachycardia Category: Medical Plan: Supraventricular tachycardia predominantly suppressed on metoprolol therapy. Has not had any major recurrence or hospital presentation related to it. Continue metoprolol therapy. Vagal maneuvers were discussed. Most likely recent symptoms of skipped heartbeats related to PACs. Currently symptoms have subsided. No further workup is indicated. Advised to participate in stress mitigation strategies. Avoidance of stimulants was discussed. (2) Benign essential hypertension: Code(s): I10 - Essential (primary) hypertension Category: Medical Plan: Hypertension with multiple risk factors including diabetes as well as mixed hyperlipidemia. His hyperlipidemia is well controlled on current Vascepa therapy. Continue the same. Blood pressure is well optimized. Continue metoprolol therapy. Advised to monitor blood pressure at home maintain a log. Goal blood pressure less than 130/80. Continue aggressive diabetes management goal hemoglobin A1c less than 7%. I think he will benefit from coronary calcium score, especially if it is on the higher side. Discussed with him. He is agreeable. Will follow up in the clinic in 1 year's time, sooner p.r.n.. Thank you for allowing me to partake in his care Orders: Orders CT Coronary Calcium Score 2 Weeks E78.00 - Pure hypercholesterolemia, unspecified Coding Level of Care Code Est Pt Level 4 (11493) Complex EM visit Add On G2211 Diagnoses AVNRT (AV clint re-entry tachycardia) I47.1 Benign essential hypertension I10 CPT Codes EKG - CPT: 31360-[id number], Complete ([id number])
[2024-10-10 14:52] VITALS: BP 118/72; PULSE 75; BMI 27.1
== END 2024-10-10 15:23 | disposition home or self-care (01) ==
PROVIDERS: PCP Internal Medicine; Visit Provider Internal Medicine Cardiovascular Disease
DX: I47.10 Supraventricular tachycardia, unspecified (principal); I10 Essential (primary) hypertension
CPT/HCPCS: 93010; 99214

== ENCOUNTER → 2024-10-10 14:49 | Outpatient (BNVA) | payer OTHER, SELFPAY | PROVIDERS: PCP Internal Medicine; Visit Provider Internal Medicine Cardiovascular Disease | DX: I47.10 Supraventricular tachycardia, unspecified (principal); I10 Essential (primary) hypertension; E78.2 Mixed hyperlipidemia; E11.9 Type 2 diabetes mellitus without complications; Z79.899 Other long term (current) drug therapy | CPT/HCPCS: 93005 ==

== ENCOUNTER 2024-11-01 16:52 | Outpatient (AMB) | payer OTHER, SELFPAY ==
--- NOTE | 2024-11-01 16:50 | MHC.PC.OV ---
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 Accompanied by: Self / Same As Patient Allergies No Known Allergies Allergy (Verified 11/02/24 08:03) Medication List - Last Reconciled 11/01/24 by Cyril Pradhan MD blood-glucose meter,continuous (Dexcom G6 Radio Dispatcher) As directed blood-glucose sensor (Dexcom G6 Sensor device) As directed blood-glucose transmitter (Dexcom G6 Transmitter device) As directed cholecalciferol (vitamin D3) (Vitamin D3) 25 mcg PO DAILY clobetasol 0.05% 1 appl topical BID esomeprazole magnesium 20 mg PO DAILY 1 month icosapent ethyl (Vascepa) 2 grams PO BID metformin ER 500 mg PO BID metoprolol succinate ER 100 mg PO DAILY 90 days multivitamin 1 tab PO DAILY paroxetine HCl 30 mg PO QAM Tobacco use date assessed: 11/01/24 Dental Screening Dental Screen Date: 11/01/24 HPI flu sx HPI Details Patient's follow-up visit / consultation today is done over the phone - this is a Telehealth visit Patient's current medications have been reviewed and verified with patient and / or caregiver / proxy and have been updated accordingly in the medication list Patient states that he ran a fever last week that lasted for just 1 day but he has been experiencing significantly increased fatigue since He denies any headaches or dizziness Denies any chest pains, no increased SOB No nausea/vomiting, no abdominal pain No change in bowel habits noted [facility] Medical History Gastritis determined by biopsy 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 Internal hemorrhoids without complication Diverticulosis Physical exam Subscapularis (muscle) sprain Personal history of nicotine dependence Gastroesophageal reflux disease concurrent with and due to paraesophageal hernia Bilateral kidney stones Difficult airway for intubation Urinary frequency Low back pain Vitamin D deficiency Obstructive sleep apnea (~2008) Overweight (BMI 25.0-29.9) Anxiety Pure hypercholesterolemia 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) Benign essential hypertension Diabetes mellitus Surgical History Status post repair of paraesophageal diaphragmatic hernia S/P laparoscopic fundoplication History of esophagogastroduodenoscopy (EGD) (~2020) History of colonoscopy (~2020) History of left knee surgery (~1992) History of cystoscopy (~2020) History of nasal surgery (~1996) History of arthroscopy of right shoulder (~2011) Family History Father Lung cancer Mother Medical history unknown Maternal Grandfather Myocardial infarction Maternal Uncle Myocardial infarction Social History Household Members: Significant Other and Children Housing: House Are you a primary home care music therapist to a significant other at home: No Do you presently have visiting nurse or other home services: No Alcohol intake: current Alcohol intake frequency: does not drink Patient Tobacco Use Status: Former Tobacco user e-Cigarette/Vaping Use: Never Used Second Hand Smoke Exposure: Yes Substance Use Frequency: Occasionally Have you been hit, kicked, punched, or otherwise hurt by someone within the past year? If so, by whom?: No Are you DNR?: No Advance Directives: No Advance Directives Information Provided: Yes Recently lost weight without trying: No Nutrition Risks: No Nutritional Risk service: No Current occupational status: employed Cognitive needs: No Hearing needs: No Vision needs: Yes (reading glasses) Questionnaire PHQ-9 Over the last 2 weeks, how often have you been bothered by any of the following problems? 1. Little interest or pleasure in doing things: not at all 2. Feeling down, depressed, or hopeless: not at all 3. Trouble falling or staying asleep, or sleeping too much: not at all 4. Feeling tired or having little energy: not at all 5. Poor appetite or overeating: not at all 6. Feeling bad about yourself - or that you are a failure or have let yourself or your family down: not at all 7. Trouble concentrating on things, such as reading the newspaper or watching television: not at all 8. Moving or speaking so slowly that other people could have noticed. Or the opposite - being so fidgety or restless that you have been moving around a lot more than usual: not at all 9. Thoughts that you would be better off or of hurting yourself in some way: not at all Total score: 0 Depression Screening Interpretation: Negative Depression Screening Done: Yes 42157 - PHQ-9 Billing: Yes Source: Developed by Drs. Anderson Jordan, Marcy Varghese, Rubin Leon and colleagues, with an educational reva from [employer]. Thrive Questionnaire Date Thrive assessed: 11/01/24 I am a: Patient What is your living situation today?: I have a steady place to live Within the past 12 months, did the food you bought not last and you didn't have the money to get more?: Never true Within the past 12 months, did you worry whether your food would run out before you got money to buy more?: Never true Do you have trouble paying for medicines?: No Do you have trouble getting transportation to medical appointments?: No Do you have trouble paying your heating and electricity bill?: No Do you have trouble taking care of your child, family member or friend?: No Do you have trouble with day-to-day activities such as bathing, preparing meals, shopping, managing finances, etc.?: No Are you currently unemployed and looking for a job?: No Are you interested in more education?: No Please select the resources that you would like help with: None Currently or been in a relationship where the following occur: No concerns reported THRIVE Score: 0 AUDIT C Alcohol Use Questionnaire (AUDIT-C) 1. How often do you have a drink containing alcohol?: Monthly or less 2. How many drinks containing alcohol do you have on a typical day when you are drinking?: 1 or 2 3. How often do you have six or more drinks on one occasion?: Never Total Score: 1 Score Reviewed/Action Taken: Yes MICHAEL-7 AMB Questionnaire MICHAEL-7 Date MICHAEL - 7 assessed: 11/01/24 Feeling nervous, anxious, or on edge: 0 = Not at all Not being able to stop or control worryin = Not at all Worrying too much about different things: 0 = Not at all Trouble relaxin = Not at all Being so restless that it is hard to sit still: 0 = Not at all Becoming easily annoyed or irritable: 0 = Not at all Feeling afraid as if something awful might happen: 0 = Not at all Total MICHAEL-7 score (0-4 normal; 5-9 mild; 10-14 moderate; 15-21 severe): 0 Source: Developed by Drs. Anderson Jordan, Marcy Varghese, Rubin Leon and colleagues, with an educational reva from [employer]. Review of Systems Const Denies chills, Reports fatigue (increased over the past week), Denies fever(s) and Denies headache(s) ENT Denies dysphagia, Denies dizziness, Denies otalgia, Denies headache(s), Denies neck pain, Denies odynophagia and Denies sore throat Card Denies chest pain, Denies irregular heart rhythm, Denies palpitations and Denies dyspnea Resp Denies chest congestion, Denies cough and Denies dyspnea GI Denies abdominal pain, Denies constipation, Denies dysphagia, Denies heartburn, Reports loose stools (on and off, mostly post-prandial), Denies nausea, Denies odynophagia and Denies vomiting Denies difficulty urinating, Denies dysuria and Denies urinary frequency Musc Reports back pain (on and off), Reports arthralgias (right shoulder - chronic), Denies neck pain and Reports stiffness (in the right shoulder) Skin/Breast Denies rash Neuro Denies dizziness, Denies headache(s) and Denies paresthesias Psych Reports anxiety Endo Reports fatigue (increased over the past week) and Denies palpitations Physical exam (Primary Care) Vital Signs: Physical examination is not performed as visit / consultation today is done over the phone - Telehealth visit All physical findings indicated here, if present, are as per patient's and / or caregivers / proxy's report Tobacco/Smoking Status: Tobacco use Status Tobacco use date assessed 11/01/24 11/01/24 16:52 Patient Tobacco Use Status Former Tobacco user 11/01/24 16:52 e-Cigarette/Vaping Use Never Used 11/01/24 16:52 PHQ-9: PHQ-9 Score PHQ-9: Total score 0 11/01/24 17:19 Depression Screening Interpretation: Negative Thrive Assessment: Date of Thrive Assessment Date Thrive assessed 11/01/24 11/01/24 16:52 Currently or been in a relationship where the following occur: No concerns reported HENMT Ears: TM's normal bilaterally and EAC's normal Telehealth Telehealth Telehealth Platform: Telephone Location of provider rendering services: practice address Location of patient: address on file Patient Identification confirmed using: Name, : Yes Telehealth method: voice only Patient verbally consented to treatment: Yes Patient verbally consented to billing insurance company: Yes Patient informed of any privacy concerns related to visit: Yes Minutes spent on Phone/Video with Pt.: 18 Coding Level of Care Code Tele Est Pt Level 3 (83340) Diagnoses Fatigue, unspecified type R53.83 Fatigue type: unspecified Additional Codes PHQ-9 - 33122 - PHQ-9 Billing: Yes ([id number]) Assessment & Plan Assessment & Plan (1) Fatigue: Code(s): R53.83 - Other fatigue Category: Medical Qualifiers: Fatigue type: unspecified Qualified Code(s): R53.83 - Other fatigue Plan: Patient has not had any labs done since March 2024 but he has been advised that his labs back then were all mostly normal or near normal Patient states that he tested himself for COVID a couple of days ago and it came out negative Have advised patient it is likely that his symptoms are due to a viral syndrome and should gradually improve over the next few days Advised that he can continue with OTC meds PRN for symptomatic relief but to call if his symptoms progress or get worse over the next 1-2 weeks Advised that if she needs a note for work, the office can provide him with this upon request Plan Follow up as scheduled in December 2024
== END 2024-11-01 17:29 | disposition home or self-care (01) ==
LOC: HO.HMCH 16:52
PROVIDERS: PCP Internal Medicine; Visit Provider Internal Medicine
DX: R53.83 Other fatigue (principal)

== ENCOUNTER → 2024-11-01 16:52 | Outpatient (BNVA) | payer OTHER, SELFPAY | PROVIDERS: PCP Internal Medicine; Visit Provider Internal Medicine | DX: R53.83 Other fatigue (principal) | CPT/HCPCS: 96127 ==

== ENCOUNTER 2024-11-02 07:38 | Day surgery (SDC) | payer OTHER, SELFPAY ==
[2024-10-31 14:07] VITALS: BMI 27.1
--- NOTE | 2024-11-01 12:19 | P.CONAN_ITS ---
Documented by User: Sugey Cantor NP 11/01/24 13:37 HPI - Anesthesia Eval Consult details Narrative: 54yo M for Upper Endoscopy ?Hx Diff Intubation Follows [facility] Cardiology for Supraventricular tachycardia predominantly suppressed on metoprolol therapy. Stable at 09/2024 office visit for routine yearly f/u. 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 (Acute) Status post repair of paraesophageal diaphragmatic hernia (Acute) Paraesophageal hernia with gastroesophageal reflux (Acute) Internal hemorrhoids without complication (Acute) Diverticulosis (Acute) AVNRT (AV clint re-entry tachycardia) (Acute) Benign essential hypertension (Acute) Pure hypercholesterolemia (Acute) Diabetes mellitus (Acute) Obstructive sleep apnea (Acute ~2008) Personal history of nicotine dependence (Acute) Overweight (BMI 25.0-29.9) (Acute) Anxiety (Acute) Urinary frequency (Acute) Low back pain (Acute) Vitamin D deficiency (Acute) Degenerative joint disease of right shoulder (Acute) Past Medical History Medical History Gastritis determined by biopsy 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 Internal hemorrhoids without complication Diverticulosis Physical exam Subscapularis (muscle) sprain Personal history of nicotine dependence Gastroesophageal reflux disease concurrent with and due to paraesophageal hernia Bilateral kidney stones Difficult airway for intubation Urinary frequency Low back pain Vitamin D deficiency Obstructive sleep apnea (~2008) Overweight (BMI 25.0-29.9) Anxiety Pure hypercholesterolemia 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) Benign essential hypertension Diabetes mellitus Family History Family History Father Lung cancer Mother Medical history unknown Maternal Grandfather Myocardial infarction Maternal Uncle Myocardial infarction Family history of problems with anesthesia: No Surgical History Surgical History Status post repair of paraesophageal diaphragmatic hernia S/P laparoscopic fundoplication History of esophagogastroduodenoscopy (EGD) (~2020) History of colonoscopy (~2020) History of left knee surgery (~1992) History of cystoscopy (~2020) History of nasal surgery (~1996) History of arthroscopy of right shoulder (~2011) History of Problems with Anesthesia: Yes Social History Social History Household Members: Significant Other and Children Housing: House Are you a primary daycare director to a significant other at home: No Do you presently have visiting nurse or other home services: No Alcohol intake: current Alcohol intake frequency: does not drink Patient Tobacco Use Status: Former Tobacco user e-Cigarette/Vaping Use: Never Used Second Hand Smoke Exposure: Yes Substance Use Frequency: Occasionally Have you been hit, kicked, punched, or otherwise hurt by someone within the past year? If so, by whom?: No Are you DNR?: No Advance Directives: No Advance Directives Information Provided: Yes Recently lost weight without trying: No Nutrition Risks: No Nutritional Risk service: No Current occupational status: employed Cognitive needs: No Hearing needs: No Vision needs: Yes (reading glasses) Meds Allergies Allergy/AdvReac Type Severity Reaction Status Date / Time No Known Allergies Allergy Verified 11/02/24 08:03 Home Medications ?Medication ?Instructions ?Recorded ?Confirmed ?Last Taken ?Type multivitamin 1 tab PO DAILY 07/23/20 11/01/24 04/06/21 History clobetasol 0.05 % topical cream 1 appl topical BID 07/11/24 11/01/24 Unknown History icosapent ethyl 0.5 gram capsule 2 g PO BID 10/10/24 11/01/24 Unknown History (Vascepa) Exam Height,Weight and Vital Signs: Height 5 ft 11 in Weight 87.997 kg Narrative Narrative: EKG 09/2024 EKG Details: EKG shows normal sinus rhythm with normal EKG Assessment and Plan Assessment Anesthesia Assessment: Chart Reviewed Final Anesthetic Review Family History of Problems with Anesthesia: No History of Problems with Anesthesia: Yes Documented by User: Emmett Harper MD 11/02/24 09:22 [facility] Past Medical History Medical History Gastritis determined by biopsy 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 Internal hemorrhoids without complication Diverticulosis Physical exam Subscapularis (muscle) sprain Personal history of nicotine dependence Gastroesophageal reflux disease concurrent with and due to paraesophageal hernia Bilateral kidney stones Difficult airway for intubation Urinary frequency Low back pain Vitamin D deficiency Obstructive sleep apnea (~2008) Overweight (BMI 25.0-29.9) Anxiety Pure hypercholesterolemia 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) Benign essential hypertension Diabetes mellitus Family History Family History Father Lung cancer Mother Medical history unknown Maternal Grandfather Myocardial infarction Maternal Uncle Myocardial infarction Surgical History Surgical History Status post repair of paraesophageal diaphragmatic hernia S/P laparoscopic fundoplication History of esophagogastroduodenoscopy (EGD) (~2020) History of colonoscopy (~2020) History of left knee surgery (~1992) History of cystoscopy (~2020) History of nasal surgery (~1996) History of arthroscopy of right shoulder (~2011) History of Problems with Anesthesia: No Social History Social History Household Members: Significant Other and Children Housing: House Are you a primary daycare director to a significant other at home: No Do you presently have visiting nurse or other home services: No Alcohol intake: current Alcohol intake frequency: does not drink Patient Tobacco Use Status: Former Tobacco user e-Cigarette/Vaping Use: Never Used Second Hand Smoke Exposure: Yes Substance Use Frequency: Occasionally Have you been hit, kicked, punched, or otherwise hurt by someone within the past year? If so, by whom?: No Are you DNR?: No Advance Directives: No Advance Directives Information Provided: Yes Recently lost weight without trying: No Nutrition Risks: No Nutritional Risk service: No Current occupational status: employed Cognitive needs: No Hearing needs: No Vision needs: Yes (reading glasses) Meds Allergies Allergy/AdvReac Type Severity Reaction Status Date / Time No Known Allergies Allergy Verified 11/02/24 08:03 Home Medications ?Medication ?Instructions ?Recorded ?Confirmed ?Last Taken ?Type multivitamin 1 tab PO DAILY 07/23/20 11/01/24 04/06/21 History clobetasol 0.05 % topical cream 1 appl topical BID 07/11/24 11/01/24 Unknown History icosapent ethyl 0.5 gram capsule 2 g PO BID 10/10/24 11/01/24 Unknown History (Vascepa) Exam Airway Mallampati Class: II TM Dist: >3cm Neck ROM: Full Assessment and Plan Assessment Anesthesia Assessment: Anesthesia Plan Discussed Final Anesthetic Review History of Problems with Anesthesia: No NPO: Yes ASA Class: III Final Preanesthetic Review: No Changes in Pt Med Stat, Meds/Allgs Chart Reviewed, Consent Obtained/Reviewed and Anes Risks/Benef Reviewed Patient Risk: Intermediate Procedure Risk: Low Anesthetic Plan Anesthetic Plan: TIVA Disposition: Standard PACU
[2024-11-02 07:59] VITALS: BMI 27.0
[2024-11-02] MEDS: Lactated Ringers 1,000 ML 100 ML IVCONT (08:24)
[2024-11-02 08:28] LABS: Glucose, Whole Blood 220 mg/dL (60-115)
[2024-11-02 08:37] VITALS: BP 112/62; PULSE 81; RESP 18; TEMP 36.6; O2SAT 96
--- NOTE | 2024-11-02 08:42 | P.HPSUR_ITS ---
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 Internal hemorrhoids without complication Diverticulosis Physical exam Subscapularis (muscle) sprain Personal history of nicotine dependence Gastroesophageal reflux disease conc) History of Previous Operations: Relevant previous surgery/procedure and date(s) ( Status post repair of paraesophageal diaphragmatic hernia S/P laparoscopic fundoplication History of esophagogastroduodenoscopy (EGD) (~2020) History of colonoscopy (~2020) History of left knee surgery (~1992) History of cystoscopy (~2020) History of nasal surgery (~1996) History of arthroscopy of ) Allergies: Allergies Allergy/AdvReac Type Severity Reaction Status Date / Time No Known Allergies Allergy Verified 11/02/24 08:03 Review of Systems Sugical H&P ROS: Negative: Constitution, Cardiovascular, Respiratory, Ne urological, Psychiatric, Hem-Onc, Allergic/Immunologic, Gastrointestinal, Genitourinary, Musculoskeletal, Integumentary, Endocrine and Eyes/Ears/Nose/Throat Exam Surgical H&P Exam: Normal: HEENT, Normal: Heart, Normal: Lungs, Normal: Extremities, Normal: Abdomen, Normal: Skin and Normal: Neurological Plan Diagnosis/Plan: Unchanged I have reviewed the history and physical and performed a pertinent physical examination on my patient. No changes have occurred unless specified. Time Spent With Patient Time: Total time managing care of this patient today ____ minutes.
--- NOTE | 2024-11-02 08:59 | W.PM.OPN ---
Operative Note Operative Note Date of Service: 11/02/24 Narrative: Procedure Description: EGD Indication: hx of barretts Anesthesia: MAC FLEXIBLE TRANSORAL UPPER GASTROINTESTINAL ENDOSCOPY UPPER ENDOSCOPY Consent: Indications for the procedure and potential complications of bleeding, perforation, reaction to medications and missed diagnosis were discussed with the patient and informed consent was obtained. Instrument: Olympus GIF H 190 J mid size upper endoscope Monitoring: Vital signs and clinical assessment, continuous EKG monitoring, Pulse oximetry, Carbon Dioxide monitoring and blood pressure monitoring were done throughout the procedure. Procedure: The patient was placed in the left lateral decubitis position and pre-procedure medications were administered and a bite block was placed. The endoscope was inserted into the mouth and advanced under direct vision to the third part of duodenum. A careful inspection was made as the upper endoscope was withdrawn including a retroflexed examination of the proximal stomach; Findings and interventions are described below. Findings: Larynx:normal Esophagus: normal mucosa except for one short segment of possible barretts Stomach: full of food, no masses seen Duodenum: not entered Intervention: none Impression/Findings: possible barretts aborted exam due to food in stomach PLAN: repeat EGD, keep on clears day before procedure next time GERD precautions
[2024-11-02 09:08] VITALS: BP 96/65; PULSE 79; RESP 18; TEMP 36.3; O2SAT 93
[2024-11-02 09:18] VITALS: BP 112/72; PULSE 77; RESP 18; TEMP 36.7; O2SAT 97
== END 2024-11-02 09:37 | disposition home or self-care (01) ==
PROVIDERS: PCP Internal Medicine; Visit Provider Internal Medicine Gastroenterology
PROC: 0DJ08ZZ Inspection of Upper Intestinal Tract, Via Natural or Artificial Opening Endoscopic (ICD-10-PCS; CPT 43235; principal; 2024-11-02 09:20)
DX: K22.70 Barrett's esophagus without dysplasia (principal); K29.70 Gastritis, unspecified, without bleeding; K44.9 Diaphragmatic hernia without obstruction or gangrene; K21.9 Gastro-esophageal reflux disease without esophagitis; I10 Essential (primary) hypertension; E11.9 Type 2 diabetes mellitus without complications; I47.19 Other supraventricular tachycardia; E55.9 Vitamin D deficiency, unspecified; E66.3 Overweight; Z68.27 Body mass index [BMI] 27.0-27.9, adult; G47.33 Obstructive sleep apnea (adult) (pediatric); Z87.442 Personal history of urinary calculi; Z79.84 Long term (current) use of oral hypoglycemic drugs; Z79.899 Other long term (current) drug therapy; Z98.890 Other specified postprocedural states; Z87.891 Personal history of nicotine dependence
CPT/HCPCS: 43235; 82947; J2003; J2704

== ENCOUNTER 2024-11-08 08:46 | Day surgery (SDC) | payer OTHER, SELFPAY ==
--- NOTE | 2024-11-07 09:20 | P.CONAN_ITS ---
HPI - Anesthesia Eval Consult details Narrative: 54yo M for Upper Endoscopy EGD aborted 11/02/24 d/t food in stomach. Instructed to maintain clear liquid diet day before procedure ?Hx Diff Intubation Follows [facility] Cardiology for Supraventricular tachycardia predominantly suppressed on metoprolol therapy. Stable at 09/2024 office visit for routine yearly f/u. 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 (Acute) Status post repair of paraesophageal diaphragmatic hernia (Acute) Paraesophageal hernia with gastroesophageal reflux (Acute) Internal hemorrhoids without complication (Acute) Diverticulosis (Acute) AVNRT (AV clint re-entry tachycardia) (Acute) Benign essential hypertension (Acute) Pure hypercholesterolemia (Acute) Diabetes mellitus (Acute) Obstructive sleep apnea (Acute ~2008) Personal history of nicotine dependence (Acute) Overweight (BMI 25.0-29.9) (Acute) Anxiety (Acute) Urinary frequency (Acute) Low back pain (Acute) Vitamin D deficiency (Acute) Degenerative joint disease of right shoulder (Acute) Past Medical History Medical History Gastritis determined by biopsy 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 Internal hemorrhoids without complication Diverticulosis Physical exam Subscapularis (muscle) sprain Personal history of nicotine dependence Gastroesophageal reflux disease concurrent with and due to paraesophageal hernia Bilateral kidney stones Difficult airway for intubation Urinary frequency Low back pain Vitamin D deficiency Obstructive sleep apnea (~2008) Overweight (BMI 25.0-29.9) Anxiety Pure hypercholesterolemia 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) Benign essential hypertension Diabetes mellitus Family History Family History Father Lung cancer Mother Medical history unknown Maternal Grandfather Myocardial infarction Maternal Uncle Myocardial infarction Family history of problems with anesthesia: No Surgical History Surgical History Status post repair of paraesophageal diaphragmatic hernia S/P laparoscopic fundoplication History of esophagogastroduodenoscopy (EGD) (~2020) History of colonoscopy (~2020) History of left knee surgery (~1992) History of cystoscopy (~2020) History of nasal surgery (~1996) History of arthroscopy of right shoulder (~2011) History of Problems with Anesthesia: No Social History Social History Household Members: Significant Other and Children Housing: House Are you a primary ambulatory care coordinator to a significant other at home: No Do you presently have visiting nurse or other home services: No Alcohol intake: current Alcohol intake frequency: does not drink Patient Tobacco Use Status: Former Tobacco user e-Cigarette/Vaping Use: Never Used Second Hand Smoke Exposure: Yes service: No Current occupational status: employed Cognitive needs: No Hearing needs: No Vision needs: Yes (reading glasses) Meds Allergies Allergy/AdvReac Type Severity Reaction Status Date / Time No Known Allergies Allergy Verified 11/02/24 08:03 Home Medications ?Medication ?Instructions ?Recorded ?Confirmed ?Last Taken ?Type multivitamin 1 tab PO DAILY 07/23/20 11/01/24 04/06/21 History clobetasol 0.05 % topical cream 1 appl topical BID 07/11/24 11/01/24 Unknown History icosapent ethyl 0.5 gram capsule 2 g PO BID 10/10/24 11/01/24 Unknown History (Vascepa) Exam Narrative Narrative: EKG 09/2024 EKG Details: EKG shows normal sinus rhythm with normal EKG Assessment and Plan Assessment Anesthesia Assessment: Chart Reviewed Final Anesthetic Review Family History of Problems with Anesthesia: No History of Problems with Anesthesia: No
[2024-11-08 05:13] VITALS: BMI 27.3
[2024-11-08 09:00] VITALS: BP 118/69; PULSE 80; RESP 16; TEMP 36.1; O2SAT 96; BMI 25.9
[2024-11-08 09:01] LABS: Glucose, Whole Blood 174 mg/dL (60-115)
[2024-11-08] MEDS: Lactated Ringers 1,000 ML 100 ML IVCONT (09:29)
--- NOTE | 2024-11-08 09:44 | HO.ANESPROP2 ---
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 (Acute) Status post repair of paraesophageal diaphragmatic hernia (Acute) Paraesophageal hernia with gastroesophageal reflux (Acute) Internal hemorrhoids without complication (Acute) Diverticulosis (Acute) AVNRT (AV clint re-entry tachycardia) (Acute) Benign essential hypertension (Acute) Pure hypercholesterolemia (Acute) Diabetes mellitus (Acute) Obstructive sleep apnea (Acute ~2008) Personal history of nicotine dependence (Acute) Overweight (BMI 25.0-29.9) (Acute) Anxiety (Acute) Urinary frequency (Acute) Low back pain (Acute) Vitamin D deficiency (Acute) Degenerative joint disease of right shoulder (Acute) Past Medical History Medical History Gastritis determined by biopsy 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 Internal hemorrhoids without complication Diverticulosis Physical exam Subscapularis (muscle) sprain Personal history of nicotine dependence Gastroesophageal reflux disease concurrent with and due to paraesophageal hernia Bilateral kidney stones Difficult airway for intubation Urinary frequency Low back pain Vitamin D deficiency Obstructive sleep apnea (~2008) Overweight (BMI 25.0-29.9) Anxiety Pure hypercholesterolemia 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) Benign essential hypertension Diabetes mellitus Functional capacity: independent ambulation Family History Family History Father Lung cancer Mother Medical history unknown Maternal Grandfather Myocardial infarction Maternal Uncle Myocardial infarction Family history of problems with anesthesia: No Surgical History Surgical History Status post repair of paraesophageal diaphragmatic hernia S/P laparoscopic fundoplication History of esophagogastroduodenoscopy (EGD) (~2020) History of colonoscopy (~2020) History of left knee surgery (~1992) History of cystoscopy (~2020) History of nasal surgery (~1996) History of arthroscopy of right shoulder (~2011) History of Problems with Anesthesia: No Social History Social History Household Members: Significant Other and Children Housing: House Are you a primary client care consultant to a significant other at home: No Do you presently have visiting nurse or other home services: No Alcohol intake: current Alcohol intake frequency: holidays/special occasions only Patient Tobacco Use Status: Former Tobacco user e-Cigarette/Vaping Use: Never Used Second Hand Smoke Exposure: Yes Use of substances other than those prescribed or required for medical reasons: No Advance Directives: No Advance Directives Information Provided: Yes service: No Current occupational status: employed Cognitive needs: No Hearing needs: No Vision needs: Yes (reading glasses) Meds Allergies Allergy/AdvReac Type Severity Reaction Status Date / Time No Known Allergies Allergy Verified 11/02/24 08:03 Active Medications: Current Medications Lactated Ringer's (Lr) 1,000 mls @ 100 mls/hr IVCONT .Q10H LISA Last Admin: 11/08/24 09:29 Dose: 100 mls/hr Home Medications ?Medication ?Instructions ?Recorded ?Confirmed ?Last Taken ?Type multivitamin 1 tab PO DAILY 07/23/20 11/08/24 11/07/24 History clobetasol 0.05 % topical cream 1 appl topical BID 07/11/24 11/08/24 11/07/24 History icosapent ethyl 0.5 gram capsule 2 g PO BID 10/10/24 11/08/24 11/07/24 History (Vascepa) Exam Height,Weight and Vital Signs: Height 5 ft 11 in Weight 84.4 kg Last Vital Signs Temp 96.9 F 11/08/24 09:00 Pulse 80 11/08/24 09:00 Resp 16 11/08/24 09:00 BP 118/69 11/08/24 09:00 Pulse Ox 96 11/08/24 09:00 O2 Del Method Room Air 11/08/24 09:00 Pertinent Lab Results Pertinent Lab Results: Laboratory Tests 11/08/24 08:56 POC Glucose 174 H Airway Mallampati Class: III TM Dist: >3cm Neck ROM: Full Heart: RRR Lungs: CTA Assessment and Plan Assessment Anesthesia Assessment: Anesthesia Plan Discussed and Chart Reviewed Final Anesthetic Review Family History of Problems with Anesthesia: No History of Problems with Anesthesia: No NPO: Yes ASA Class: III Final Preanesthetic Review: Meds/Allgs Chart Reviewed, Consent Obtained/Reviewed and Anes Risks/Benef Reviewed Patient Risk: Intermediate Procedure Risk: Low Anesthetic Plan Anesthetic Plan: MAC: Disposition: Standard PACU
--- NOTE | 2024-11-08 10:03 | P.HPSUR_ITS ---
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 Internal hemorrhoids without complication Diverticulosis Physical exam Subscapularis (muscle) sprain Personal history of nicotine dependence Gastroesophageal reflux disease conc) History of Previous Operations: Relevant previous surgery/procedure and date(s) (Status post repair of paraesophageal diaphragmatic hernia S/P laparoscopic fundoplication History of esophagogastroduodenoscopy (EGD) (~2020) History of colonoscopy (~2020) History of left knee surgery (~1992) History of cystoscopy (~2020) History of nasal surgery (~1996) History of arthroscopy of r) Allergies: Allergies Allergy/AdvReac Type Severity Reaction Status Date / Time No Known Allergies Allergy Verified 11/02/24 08:03 Review of Systems Sugical H&P ROS: Negative: Constitution, Cardiovascular, Respiratory, N eurological, Psychiatric, Hem-Onc, Allergic/Immunologic, Gastrointestinal, Genitourinary, Musculoskeletal, Integumentary, Endocrine and Eyes/Ears/Nose/Throat Exam Surgical H&P Exam: Normal: HEENT, Normal: Heart, Normal: Lungs, Normal: Extremities, Normal: Abdomen, Normal: Skin and Normal: Neurological Plan Diagnosis/Plan: Unchanged I have reviewed the history and physical and performed a pertinent physical examination on my patient. No changes have occurred unless specified. Time Spent With Patient Time: Total time managing care of this patient today ____ minutes.
--- NOTE | 2024-11-08 10:28 | W.PM.OPN ---
Operative Note Operative Note Date of Service: 11/08/24 Narrative: Procedure Description: EGD Indication: Barretts Anesthesia: MAC FLEXIBLE TRANSORAL UPPER GASTROINTESTINAL ENDOSCOPY UPPER ENDOSCOPY Consent: Indications for the procedure and potential complications of bleeding, perforation, reaction to medications and missed diagnosis were discussed with the patient and informed consent was obtained. Instrument: Olympus GIF H 190 J mid size upper endoscope Monitoring: Vital signs and clinical assessment, continuous EKG monitoring, Pulse oximetry, Carbon Dioxide monitoring and blood pressure monitoring were done throughout the procedure. Procedure: The patient was placed in the left lateral decubitis position and pre-procedure medications were administered and a bite block was placed. The endoscope was inserted into the mouth and advanced under direct vision to the third part of duodenum. A careful inspection was made as the upper endoscope was withdrawn including a retroflexed examination of the proximal stomach; Findings and interventions are described below. Findings: Larynx:normal Esophagus: GE junction at 38 cm, diaphragm hiatus at 38 cm, irregular Z line with possible small islands of barretts, bx taken Stomach: food noted in stomach . Grade 2 flap valve on retroflexed examination of the cardia. Duodenum: Normal bulb and descending duodenum, Intervention: Biopsies as noted above, Impression/Findings: possible barretts possible gastroparesis PLAN: low fat and low fiber diet consider gastric emptying study for checking for gastroparesis GERD precautions
[2024-11-08 10:37] VITALS: BP 124/73; PULSE 83; RESP 16; TEMP 36.1; O2SAT 95
[2024-11-08 10:52] VITALS: BP 134/69; PULSE 76; RESP 16; O2SAT 95
--- NOTE | 2024-11-08 10:58 | HO.POSTANES ---
Post Anesthesia Evaluation Post Anesthesia Evaluation Date of Service: 11/08/24 Vital Signs: Vital Signs Temp Pulse Resp BP Pulse Ox O2 Del Method 11/08/24 10:52 76 16 134/69 95 Room Air 11/08/24 10:37 97 F 83 16 124/73 95 Room Air 11/08/24 09:00 96.9 F 80 16 118/69 96 Room Air Anesthesia: Monitored Mental Status: Awake Pain Control: Satisfactory Nausea/Vomiting: None Hydration: Adequate Anesthesia-Related Issues: No Anes. Related Issues
[2024-11-08 11:06] VITALS: BP 135/74; PULSE 75; RESP 16; O2SAT 97
== END 2024-11-08 11:24 | disposition home or self-care (01) ==
PROVIDERS: PCP Internal Medicine; Visit Provider Internal Medicine Gastroenterology
PROC: 0DJ08ZZ Inspection of Upper Intestinal Tract, Via Natural or Artificial Opening Endoscopic (ICD-10-PCS; CPT 43235; principal; 2024-11-08 11:10)
DX: K22.70 Barrett's esophagus without dysplasia (principal); K22.89 Other specified disease of esophagus; K21.9 Gastro-esophageal reflux disease without esophagitis; K29.70 Gastritis, unspecified, without bleeding; T18.2XXA Foreign body in stomach, initial encounter; K44.9 Diaphragmatic hernia without obstruction or gangrene; E11.9 Type 2 diabetes mellitus without complications; R19.7 Diarrhea, unspecified; G47.33 Obstructive sleep apnea (adult) (pediatric); R25.1 Tremor, unspecified; Z79.84 Long term (current) use of oral hypoglycemic drugs; Z79.899 Other long term (current) drug therapy; Z98.890 Other specified postprocedural states; Z87.891 Personal history of nicotine dependence
CPT/HCPCS: 43239; 82947; 88305; 88313; 88342; J2003; J2704

== ENCOUNTER → 2024-11-08 08:46 | Outpatient (BNV) | payer OTHER, SELFPAY | PROVIDERS: PCP Internal Medicine; Visit Provider Internal Medicine Gastroenterology | DX: K22.70 Barrett's esophagus without dysplasia (principal) | CPT/HCPCS: 43239 ==

== ENCOUNTER 2024-11-14 14:15 | Outpatient (AMB) | payer OTHER, SELFPAY ==
--- NOTE | 2024-11-14 14:15 | MHC.OFFVIS ---
Vital Signs 11/14/24 14:18 Height 5 ft 11 in Weight 189 lb 9.561 oz BMI 26.4 BP 119/76 Blood Pressure Location Lt brachial Position Sitting Pulse 69 Intake Visit Reasons: S/P EGD; Dr. Britton Intake Note: Fredrick presents in the office as a follow up EGD. CC: HE states that he is just here for the results - no concerns! Fitness Specialist Required: No Allergies No Known Allergies Allergy (Verified 11/14/24 14:16) HPI HPI S/P EGD; Dr. Britton: Details: LAST VISIT Diverticulosis Frequent loose stools GERD without esophagitis Yoder's esophagus determined by endoscopy GERD (gastroesophageal reflux disease) Status post repair of paraesophageal diaphragmatic hernia Plan Patient will be set up for upper endoscopy to check on Barretts. Symptoms currently are better. Patient will take as omeprazole and stop omeprazole. Patient will call the office if he will have acid reflux or epigastric pain or discomfort, we can increase dose then. Encouraged patient to increase fiber in his diet and take probiotics. May take Imodium on as-needed basis. Again discussed with patient low FODMAP diet. List of food recommended as well as list of food to avoid given to patient. I will see patient after the procedure, sooner on as needed basis. He is agreeable to this plan and verbalizes understanding of instructions. He was given the opportunity to ask questions and all questions answered. ? UPPER ENDOSCOPY Findings: Larynx:normal Esophagus: GE junction at 38 cm, diaphragm hiatus at 38 cm, irregular Z line with possible small islands of barretts, bx taken Stomach: food noted in stomach . Grade 2 flap valve on retroflexed examination of the cardia. Duodenum: Normal bulb and descending duodenum, Intervention: Biopsies as noted above, Impression/Findings: possible barretts possible gastroparesis PLAN: low fat and low fiber diet consider gastric emptying study for checking for gastroparesis GERD precautions ADDENDUMnote-- patient admitted he uses imdoium x 3 every morning, this is probably the reason for the food still being in the stomach, Advised kami, he will d/w Joan at f/u PATHOLOGY RESULTS Diagnosis GE junction, biopsy: - Cardiofundic-type mucosa with moderate chronic inactive inflammation; no intestinal metaplasia seen. - Negative for H.pylori. - Squamous mucosa within normal limits. TODAY'S VISIT Patient is here today for follow-up and to discuss upper endoscopy results. Patient denies any ill effects from anesthesia or procedure itself. Reports to be doing well. Denies dyspepsia, dysphagia or odynophagia. GE junction biopsy did not show intestinal metaplasia. No H pylori. Patient currently is taking Nexium daily in is doing fairly well. Occasional epigastric pain depending on what he eats. During endoscopy small amount of food noticed in his stomach. Patient reports that last meal day before at 15:00. He is taking Imodium 2-3 a day daily to avoid frequent bowel movements. Patient denies any nausea or vomiting. Denies any melena, hematochezia. [facility] Medical History Gastritis determined by biopsy 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 Internal hemorrhoids without complication Diverticulosis Physical exam Subscapularis (muscle) sprain Personal history of nicotine dependence Gastroesophageal reflux disease concurrent with and due to paraesophageal hernia Bilateral kidney stones Difficult airway for intubation Urinary frequency Low back pain Vitamin D deficiency Obstructive sleep apnea (~2008) Overweight (BMI 25.0-29.9) Anxiety Pure hypercholesterolemia 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) Benign essential hypertension Diabetes mellitus Surgical History Status post repair of paraesophageal diaphragmatic hernia S/P laparoscopic fundoplication History of esophagogastroduodenoscopy (EGD) (~2020) History of colonoscopy (~2020) History of left knee surgery (~1992) History of cystoscopy (~2020) History of nasal surgery (~1996) History of arthroscopy of right shoulder (~2011) Family History Father Lung cancer Mother Medical history unknown Maternal Grandfather Myocardial infarction Maternal Uncle Myocardial infarction Social History Household Members: Significant Other and Children Housing: House Are you a primary health care administrator to a significant other at home: No Do you presently have visiting nurse or other home services: No Alcohol intake: current Alcohol intake frequency: holidays/special occasions only Patient Tobacco Use Status: Former Tobacco user e-Cigarette/Vaping Use: Never Used Second Hand Smoke Exposure: Yes service: No Current occupational status: employed Cognitive needs: No Hearing needs: No Vision needs: Yes (reading glasses) Review of Systems Const Denies weight gain and Denies weight loss ENT Reports no additional complaints, Denies dysphagia and Denies odynophagia Card Reports no additional complaints Resp Reports no additional complaints GI Denies abdominal pain, Denies belching, Denies melena, Denies bloating, Denies change in bowel habits, Denies dysphagia, Denies excessive flatus, Denies dyspepsia, Denies heartburn, Denies diarrhea, Denies loose stools, Denies nausea, Denies odynophagia and Denies vomiting Reports no additional complaints Musc Reports no additional complaints Neuro Reports no additional complaints Psych Reports no additional complaints Endo Reports no additional complaints Physical Exam Vital Signs: Last Vital Signs Pulse 69 11/14/24 14:18 BP 119/76 11/14/24 14:18 BMI result Body Mass Index 26.4 Const General: healthy appearing, no acute distress and well developed Nutritional Appearance: well nourished Orientation/consciousness: patient oriented x3 Resp Effort & Inspection: normal respiratory effort, able to speak in complete sentences, no tracheal deviation and symmetric chest movement Auscultation: clear to auscultation bilaterally Cardio Rate: regular rate GI Inspection: Yes normal to inspection and No distended Palpation (GI): Soft to palpation, not firm, nontender and No hepatosplenomegaly present Auscultation: normal bowel sounds General: Yes no CVA tenderness Back/Spine/Pelvis Back: no CVA tenderness Skin General skin exam: elasticity normal, turgor normal and dry skin Neuro General: patient oriented x3 Psych Appearance: grossly normal Mental Status: mental status grossly normal Assessment & Plan Assessment & Plan (1) Frequent loose stools: Code(s): R19.7 - Diarrhea, unspecified Category: Medical Qualifiers: Diarrhea type: unspecified type Qualified Code(s): R19.7 - Diarrhea, unspecified (2) Diverticulosis: Code(s): K57.90 - Diverticulosis of intestine, part unspecified, without perforation or abscess without bleeding Category: Medical (3) GERD without esophagitis: Code(s): K21.9 - Gastro-esophageal reflux disease without esophagitis Category: Medical (4) Status post repair of paraesophageal diaphragmatic hernia: Code(s): Z98.890 - Other specified postprocedural states; Z87.19 - Personal history of other diseases of the digestive system Category: Surgical (5) Yoder's esophagus determined by endoscopy: Code(s): K22.70 - Yoder's esophagus without dysplasia (6) GERD (gastroesophageal reflux disease): Code(s): K21.9 - Gastro-esophageal reflux disease without esophagitis Qualifiers: Esophagitis presence: without esophagitis Qualified Code(s): K21.9 - Gastro-esophageal reflux disease without esophagitis Plan Patient will go for gastric emptying study. He will continue taking Nexium every morning. Patient reports to have been taking Imodium quite often and has not tried to take fiber for long enough time. Patient has diarrhea most likely is related to incomplete emptying. If he gastric emptying study will not show gastroparesis patient will start taking fiber 1 to 2 daily with pre and probiotics. For now patient will follow fiber, low fat diet. Patient will follow-up in our office in 6 months, sooner on as needed basis. He is agreeable to this plan and verbalizes understanding of instructions. He was given the opportunity to ask questions and all questions answered. Thank you for allowing me to participate in his care Orders: Orders NM gastric emptying study 11/14/24 R68.81 - Early satiety Medications: Changed From esomeprazole magnesium 20 mg PO DAILY 1 month 30 caps 1RF GERD K44.9 - Diaphragmatic hernia without obstruction or gangrene, K21.9 - Gastro-esophageal reflux disease without esophagitis To esomeprazole magnesium 20 mg PO DAILY 90 caps 2RF GERD K44.9 - Diaphragmatic hernia without obstruction or gangrene, K21.9 - Gastro-esophageal reflux disease without esophagitis Coding Level of Care Code Est Pt Level 4 (58854) Complex EM visit Add On G2211 Diagnoses Diarrhea, unspecified type R19.7 Diarrhea type: unspecified type Diverticulosis K57.90 GERD without esophagitis K21.9 Status post repair of paraesophageal diaphragmatic hernia Z98.890; Z87.19 Yoder's esophagus determined by endoscopy K22.70 Gastroesophageal reflux disease without esophagitis K21.9 Esophagitis presence: without esophagitis Time Spent (min) 35 Comment 25 minute spent with patient and additional 10 minutes spent reviewing his records
[2024-11-14 14:18] VITALS: BP 119/76; PULSE 69; BMI 26.4
== END 2024-11-14 14:47 | disposition home or self-care (01) ==
PROVIDERS: PCP Internal Medicine; Visit Provider Nurse Practitioner Family
DX: R19.7 Diarrhea, unspecified (principal); K57.90 Diverticulosis of intestine, part unspecified, without perforation or abscess without bleeding; K21.9 Gastro-esophageal reflux disease without esophagitis; Z98.890 Other specified postprocedural states; Z87.19 Personal history of other diseases of the digestive system; K22.70 Barrett's esophagus without dysplasia
CPT/HCPCS: 99214

== ENCOUNTER → 2024-11-14 14:15 | Outpatient (BNVA) | payer OTHER, SELFPAY | PROVIDERS: PCP Internal Medicine; Visit Provider Nurse Practitioner Family ==

== ENCOUNTER → 2024-12-06 08:14 | Outpatient (REF) | payer OTHER, SELFPAY | LOC: HO.NUCMED 08:14 | PROVIDERS: PCP Internal Medicine; Visit Provider Nurse Practitioner Family | DX: Z13.89 Encounter for screening for other disorder (principal) ==

== ENCOUNTER → 2024-12-15 07:17 | Outpatient (REF) | payer OTHER, SELFPAY ==
[2024-12-15 07:36] LABS: MANUAL DIFF FLAG NO
--- NOTE | 2024-12-15 07:42 | CA_ITS ---
Acquisition Time: 2024-12-15 08:05:08 Total Exercise Time: 00:09:45 Test Indications: CAD Medications: Protocol: BERE Max HR: 142 BPM 85% of Pred: 167 BPM Max BP: 136/78 mmHG Max Work Load: 11.3 METS Exercise Stress Test with exercise 9 mins 45 secs of Bere Protocol, achieving 81% MPHR, with rerpots of 1/10 throat cramping and neck pain, no chest pain, with isolated PVCs, with normotensive response to exercise. Without any EKG changes meeting criteria for ischemia. In recovery, throat and neck discomfort resolved. Test reviewed with Dr. Yi. Referred By: Wagner Kirby Electronically Signed By: Erwin Mayen
[2024-12-15 08:03] LABS: Basophils Percent Auto 0.6 % (0-2); Eosinophils Absolute Auto 0.1 X10*3/uL (0.0-0.4); Eosinophils Percent Auto 1.5 % (0-4); Hematocrit 42.1 % (42.0-52.0); Hemoglobin 14.3 g/dl (14.0-18.0); Imm Gran Abs Auto 0.02 X10*3/uL (0.00-0.03); Imm Gran Pct Auto 0.3 % (0.0-0.4); Lymphocytes Absolute Auto 1.8 X10*3/uL (1.2-4.9); Lymphocytes Percent Auto 26.9 % (20-40); Mean Corpuscular Hemoglobin 27.3 pg (27.0-33.0); Mean Corpuscular Volume 80.5 fL (80.0-98.0); Mean Platelet Volume 9.6 fL (9.4-12.4); Monocytes Absolute Auto 0.5 X10*3/uL (0.1-1.2); Monocytes Percent Auto 7.3 % (2-11); Neutrophils Absolute Auto 4.2 x10*3/uL (2.0-8.3); Neutrophils Percent Auto 63.4 % (45-73); Platelet Count 262 X10*3/uL (160-400); Red Blood Count 5.23 X10*6/uL (4.60-5.80); Red Cell Distribution Width 13.2 % (11.0-16.0); White Blood Count 6.7 X10*3/uL (4.8-10.8)
[2024-12-15 08:09] LABS: Estimated Average Glucose 137 mg/dL; Hemoglobin A1C 175.0625 umol/L; Hemoglobin A1c % 6.4 % (<6.0); Total Hemoglobin (HGBA1C) 3801.2987 umol/L
[2024-12-15 08:35] LABS: Alanine Aminotransferase 34 U/L (0-40); Albumin Level 4.2 g/dL (3.5-5.0); Alkaline Phosphatase 48 U/L (39-117); Anion Gap 13 (12-20); Aspartate Amino Transferase 22 U/L (5-37); Bilirubin Total 0.5 mg/dL (0.0-1.0); Blood Urea Nitrogen 16 mg/dL (9-16); Carbon Dioxide 27 mmol/L (22-29); Chloride 106 mmol/L (96-108); Cholesterol 107 mg/dL (<200); Estimated Glomerular Filt Rate > 60; Glucose Fasting 200 mg/dL (60-99); HDL Cholesterol 29 mg/dL (>40); LDL Cholesterol Calculated 40 mg/dL (<100); Potassium 4.3 mmol/L (3.3-5.1); Sodium 142 mmol/L (135-145); Triglycerides 191 mg/dL (<150)
== END ==
LOC: HO.CARD 07:17
PROVIDERS: Absent Provider Internal Medicine; PCP Internal Medicine; Visit Provider Internal Medicine Cardiovascular Disease
DX: I25.10 Atherosclerotic heart disease of native coronary artery without angina pectoris (principal); D64.9 Anemia, unspecified; E11.9 Type 2 diabetes mellitus without complications; E78.00 Pure hypercholesterolemia, unspecified
CPT/HCPCS: 36415; 80053; 80061; 83036; 85025; 93017

== ENCOUNTER → 2024-12-15 07:42 | Outpatient (BNV) | payer OTHER, SELFPAY | PROVIDERS: Absent Provider Internal Medicine; PCP Internal Medicine | DX: I49.3 Ventricular premature depolarization (principal) | CPT/HCPCS: 93016; 93018 ==

== ENCOUNTER 2025-02-13 16:20 | Outpatient (AMB) | payer OTHER, SELFPAY ==
[2025-02-13 16:24] VITALS: BP 118/78; PULSE 81; O2SAT 95; BMI 25.7
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
== END 2025-02-13 17:43 | disposition home or self-care (01) ==
LOC: HO.HMCH 16:21
PROVIDERS: PCP Internal Medicine; Visit Provider Internal Medicine
DX: E11.9 Type 2 diabetes mellitus without complications (principal)

== ENCOUNTER → 2025-02-13 16:20 | Outpatient (BNVA) | payer OTHER, SELFPAY | PROVIDERS: PCP Internal Medicine; Visit Provider Internal Medicine | DX: E11.9 Type 2 diabetes mellitus without complications (principal); E78.00 Pure hypercholesterolemia, unspecified; I47.10 Supraventricular tachycardia, unspecified; R42 Dizziness and giddiness; G47.33 Obstructive sleep apnea (adult) (pediatric); K44.9 Diaphragmatic hernia without obstruction or gangrene; K21.9 Gastro-esophageal reflux disease without esophagitis; K22.70 Barrett's esophagus without dysplasia; K29.70 Gastritis, unspecified, without bleeding; R19.7 Diarrhea, unspecified; M19.111 Post-traumatic osteoarthritis, right shoulder; E55.9 Vitamin D deficiency, unspecified; F41.9 Anxiety disorder, unspecified; E66.3 Overweight; D64.9 Anemia, unspecified; Z68.25 Body mass index [BMI] 25.0-25.9, adult | CPT/HCPCS: 83036; 96127 ==

== ENCOUNTER 2025-03-14 09:18 | Outpatient (AMB) | payer OTHER, SELFPAY ==
--- NOTE | 2025-03-14 09:21 | MHC.OFFVIS ---
Vital Signs 03/14/25 09:22 Height 5 ft 11 in Weight 185 lb 3.013 oz BMI 25.8 BP 122/68 Blood Pressure Location Lt brachial Position Sitting Pulse 73 Pulse Source Monitor Intake Visit Reasons: Follow up Allergies No Known Allergies Allergy (Verified 02/13/25 16:48) Medication List - Last Reconciled 03/14/25 by Wagner Kirby MD atorvastatin (Lipitor) 20 mg PO DAILY blood-glucose sensor (Dexcom G6 Sensor device) As directed blood-glucose transmitter (Dexcom G6 Transmitter device) As directed blood-glucose,medical center director,cont (Dexcom G6 It Audit Manager) As directed cholecalciferol (vitamin D3) (Vitamin D3) 25 mcg PO DAILY clobetasol 0.05% 1 appl topical BID esomeprazole magnesium 20 mg PO DAILY icosapent ethyl (Vascepa) 2 grams PO BID metformin ER 500 mg PO BID metoprolol succinate ER 100 mg PO DAILY 90 days multivitamin 1 tab PO DAILY paroxetine HCl 30 mg PO QAM sildenafil 50 mg PO DAILY PRN HPI Comments Details: Fredrick comes for urgent follow-up. He continues to have intermittent precordial chest pressure. Not clearly exertional in nature. Symptoms come and go question under stressful situations and last for 5-10 minutes. Symptoms have been more intense in the last few weeks. He underwent a stress test in November which at high workload was negative for ischemia although had some throat discomfort. Coronary calcium score shows predominantly LAD territory calcium buildup at 60. He is concerned about that. He was started on atorvastatin therapy which she is taking. [facility] Medical History Gastritis determined by biopsy 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 Internal hemorrhoids without complication Diverticulosis Physical exam Subscapularis (muscle) sprain Personal history of nicotine dependence Gastroesophageal reflux disease concurrent with and due to paraesophageal hernia Bilateral kidney stones Difficult airway for intubation Urinary frequency Low back pain Vitamin D deficiency Obstructive sleep apnea (~2008) Overweight (BMI 25.0-29.9) Anxiety Pure hypercholesterolemia 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) Benign essential hypertension Diabetes mellitus Surgical History Status post repair of paraesophageal diaphragmatic hernia S/P laparoscopic fundoplication History of esophagogastroduodenoscopy (EGD) (~2020) History of colonoscopy (~2020) History of left knee surgery (~1992) History of cystoscopy (~2020) History of nasal surgery (~1996) History of arthroscopy of right shoulder (~2011) Family History Father Lung cancer Mother Medical history unknown Maternal Grandfather Myocardial infarction Maternal Uncle Myocardial infarction Social History Household Members: Significant Other and Children Housing: House Are you a primary respiratory care faculty to a significant other at home: No Do you presently have visiting nurse or other home services: No Alcohol intake: current Alcohol intake frequency: holidays/special occasions only Patient Tobacco Use Status: Former Tobacco user e-Cigarette/Vaping Use: Never Used Second Hand Smoke Exposure: Yes service: No Current occupational status: employed Cognitive needs: No Hearing needs: No Vision needs: Yes (reading glasses) Review of Systems Const Denies weakness Eyes Reports no additional complaints ENT Reports no additional complaints and Denies dizziness Card Reports chest pain, Denies chest pain with activity, Denies syncope, Denies rapid heart rate, Denies pedal edema, Denies edema, Denies leg edema, Denies lightheadedness, Denies palpitations, Denies dyspnea, Denies dyspnea on exertion and Denies orthopnea Resp Denies cough, Denies dyspnea and Denies dyspnea on exertion GI Denies hematochezia and Denies change in stool character Musc Denies abnormal gait, Denies muscle cramps, Denies muscle weakness, Denies numbness, Denies radiating pain into limb and Denies tingling Neuro Denies abnormal gait, Denies dizziness, Denies syncope, Denies numbness, Denies tingling and Denies weakness Endo Denies palpitations Physical Exam Vital Signs: Last Vital Signs Pulse 73 03/14/25 09:22 BP 122/68 03/14/25 09:22 BMI result Body Mass Index 25.8 Const General: cooperative, comfortable, no acute distress, alert and awake Nutritional Appearance: average body habitus Orientation/consciousness: patient oriented x3 Limitations: no limitations HEENT Head: Yes normocephalic and Yes atraumatic Neck Neck: Yes trachea midline, Yes supple and Yes no JVD Chest Chest palpation & inspection: normal inspection of the chest Resp Effort & Inspection: normal respiratory effort Auscultation: clear to auscultation bilaterally Cardio Jugular venous distension: no JVD Palpation: normal PMI Rate: regular rate Rhythm: regular rhythm Heart sounds: S1 normal heart sound present and S2 normal heart sound present GI Auscultation: normal bowel sounds Skin General skin exam: no rashes or lesions noted Neuro General: patient oriented x3 and no focal motor deficits Extrem General: Yes no clubbing, cyanosis or edema Psych Appearance: grossly normal Office Procedures EKG Details: EKG shows normal sinus rhythm with inferior Q-waves [id number], Complete Assessment & Plan Assessment & Plan (1) CAD (coronary artery disease): Comment: Calcium score of 60 in the LAD territory Code(s): I25.10 - Atherosclerotic heart disease of [place] coronary artery without angina pectoris Category: Medical Plan: Coronary artery disease as noted by elevated calcium score predominantly in LAD territory. Continues to have intermittent episodes of chest discomfort pressure-like sensation. Will suggest a coronary CTA to evaluate for obstructive coronary artery disease although less likely. This was discussed with him. Continue aggressive modification of risk factors. His blood pressure is currently well optimized. Continue statin therapy with target goal LDL less than 55 mg/dL. Continue with CPAP therapy as well. Continue aggressive management diabetes goal hemoglobin A1c less than 7%. He is encouraged to increase his activity level as tolerated regularly. Will follow-up in clinic in 10 months time, sooner p.r.n.. Thank you for allowing me to partake in his care Orders: Orders CT Cardiac Coronary Angio 1 Week I25.10 - Atherosclerotic heart disease of [place] coronary artery without angina pectoris Coding Level of Care Code Est Pt Level 4 (93776) Complex EM visit Add On G2211 Diagnoses CAD (coronary artery disease) I25.10 CPT Codes EKG - CPT: 33226-[id number], Complete ([id number])
[2025-03-14 09:22] VITALS: BP 122/68; PULSE 73; BMI 25.8
--- OUTSIDE RECORDS SUMMARY | 2025-03-14 10:11 | XMS_ITS | Patient Health Record ---
Author Organization [facility] radha FriasJuan Antonio Address [address] [facility] [place] [address] Care Team Providers Care Animal Science Professor Name Role Phone Lorne ROY, Calvin Primary Care Provider Dami Shaver Unavailable [phone] Reason For Referral No Information Medications Medication SIG (Take, Route, Fr equency, Duration) Notes Start Date End Date Status Omeprazole Orally Once a day for 30 day(s) Active Lisinopril 2.5 MG 1 tablet Orally Once a day for 30 day(s) Active Paxil 10 mg 1 tablet in the morn ing Orally Once a day for 30 day(s) Active Problems Problem Type SNOMED Code ICD Code Onset Dates Problem Status W/U Status Risk Notes Problem Bursitis (49369907) Bursitis (727.3) Active confirmed Problem Myositis (43959379) Myositis (729.1) Active confirmed Problem Pain in limb (69026884) Pain in Limb (729.5) Active confirmed Problem Plantar fasciitis (563427056) Plantar Fasciitis (728.71) Active confirmed Problem Calcaneal spur (06743248) Calcaneal spur (726.73) Active confirmed Plan Of Treatment Pending Test Test Name Order Date X ray : Foot, left 2V 05/22/2013 X ray : Foot, right 2V 05/22/2013 Insurance Providers Payer Name Payer Address Payer Phone Subscriber Number Group Number Insured Name Patient Relationship to Insured Coverage Start Date Coverage End Date [facility] [address] [place], [place] [address] [id number] [phone] [id number] RICK SOLANO Self - patient is the insured Medical (General) History Medical History History ICD Code anxiety chicken pox reflux Surgical History Surgery Date(Month/Year) knee surgery 15-20 yrs ago shoulder surgery 2012
== END 2025-03-14 09:43 | disposition home or self-care (01) ==
LOC: HO.HCS 09:18
PROVIDERS: PCP Internal Medicine; Visit Provider Internal Medicine Cardiovascular Disease
DX: I25.10 Atherosclerotic heart disease of native coronary artery without angina pectoris (principal)
CPT/HCPCS: 93010; 99214; G2211

== ENCOUNTER → 2025-03-14 09:18 | Outpatient (BNVA) | payer OTHER, SELFPAY | PROVIDERS: PCP Internal Medicine; Visit Provider Internal Medicine Cardiovascular Disease | DX: I25.10 Atherosclerotic heart disease of native coronary artery without angina pectoris (principal) | CPT/HCPCS: 93005 ==

== ENCOUNTER 2025-03-17 22:21 | Emergency (ER) | payer OTHER, SELFPAY ==
--- NOTE | 2025-03-17 | ECG_ITS ---
Test Reason : CP Blood Pressure : */* mmHG Vent. Rate : 104 BPM Atrial Rate : 104 BPM P-R Int : 152 ms QRS Dur : 86 ms QT Int : 336 ms P-R-T Axes : * 223 143 degrees QTcB Int : 441 ms Limb leads reversal Sinus tachycardia Right superior axis deviation Inferior infarct , age undetermined Abnormal ECG When compared with ECG of 16-Apr-2023 13:56, QRS axis Shifted left Inferior infarct is now Present Referred By: Generic ED Physician Electronically Signed By: Kermit Yi
--- NOTE | ~2025-03-17 | XR_ITS ---
CLINICAL HISTORY: cp 1 view chest x-ray Comparison: None provided Findings: Pulmonary vascular congestion. Retrocardiac opacity may be atelectasis or pneumonia. No pleural effusion or pneumothorax. Normal size heart. No acute fracture. IMPRESSION: 1. Pulmonary vascular congestion. 2. Possible retrocardiac pneumonia versus atelectasis. This document has been electronically signed by: Eben Kumar MD on 03/18/2025 01:05:53
--- NOTE | ~2025-03-17 | CT_ITS ---
CLINICAL HISTORY: severe headache CT head without contrast Comparison: None provided Findings: No intra-axial mass, midline shift, hydrocephalus, or acute hemorrhage. No significant atrophy-like change or white matter disease. The visualized paranasal sinuses and mastoid air cells are normal. The orbits are within normal limits. No skull fracture. IMPRESSION: 1. No acute intracranial findings. This document has been electronically signed by: Eben Kumar MD on 03/18/2025 00:33:18
[2025-03-17 22:44] VITALS: BP 100/73; PULSE 111; RESP 20; TEMP 36.7; O2SAT 96; BMI 26.4
--- NOTE | 2025-03-17 23:00 | PC.NURSE ---
pt a&ox4, respirations even and unlabored. pt reports sudden onset of chest pain radiating into the throat, and upper extremities. pt reports he was sitting down watching tv when the pain started. 20g placed in left forearm, labs obtained and vss
--- NOTE | 2025-03-17 23:04 | ED_ITS ---
HPI - Chest Pain General Chief Complaint: Chest Pain Stated Complaint: chest pain Time Seen by Provider: 03/17/25 23:03 Source: patient Mode of arrival: ambulatory Limitations: no limitations History of Present Illness ED Provider: HPI narrative: Patient with frequent chest pain had a coronary calcium score done in 12/19 which showed high calcium had LAD territory patient is supposed to get CT coronary for frequent chest pain comes here for similar chest pain started earlier today with dizziness throat pain arm pain and headache no nausea no vomiting no diaphoresis no shortness a breath pain comes and goes lasting only for few minutes Related Data Home Medications ?Medication ?Instructions ?Recorded ?Confirmed multivitamin 1 tab PO DAILY 07/23/2002/25 clobetasol 0.05 % topical cream 1 appl topical BID 03/14/25 icosapent ethyl 0.5 gram capsule 2 g PO BID 10/10/24 0 03/14/25 (Vascepa) Previous Rx's ?Medication ?Instructions ?Recorded blood-glucose sensor (Dexcom G6 #3 ea 11/18/22 Sensor device) blood-glucose transmitter (Dexcom #1 ea 11/18/22 G6 Transmitter device) blood-glucose,esol instructor,cont #1 ea 11/18/22 (Dexcom G6 Netbackup Admin) metformin 500 mg tablet,extended 500 mg PO BID #360 ta bs 09/06/24 release 24 hr cholecalciferol (vitamin D3) 25 25 mcg PO DAILY #90 ca ps 09/23/24 mcg (1,000 unit) capsule (Vitamin D3) esomeprazole magnesium 20 mg 20 mg PO DAILY GERD #90 c aps 11/14/24 capsule,delayed release atorvastatin 20 mg tablet (Lipitor) 20 mg PO DAILY #30 tabs 12/04/24 metoprolol succinate 100 mg 100 mg PO DAILY 90 days #9 0 tabs 01/09/25 tablet,extended release 24 hr sildenafil 50 mg tablet 50 mg PO DAILY PRN Sexual Ac tivity 02/21/25 #10 tabs paroxetine HCl 30 mg tablet 30 mg PO QAM #90 tabs 0605/21 ibuprofen 600 mg tablet 600 mg PO Q6H PRN fever or p ain 03/18/25 #30 tabs Allergies Allergy/AdvReac Type Severity Reaction Status Date / Time No Known Allergies Allergy Verified 03/17/25 22:45 Review of Systems 2 Review of Systems: Yes all other systems are reviewed and are negative [facility] Past Medical History Medical History Gastritis determined by biopsy 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 Internal hemorrhoids without complication Diverticulosis Physical exam Subscapularis (muscle) sprain Personal history of nicotine dependence Gastroesophageal reflux disease concurrent with and due to paraesophageal hernia Bilateral kidney stones Difficult airway for intubation Urinary frequency Low back pain Vitamin D deficiency Obstructive sleep apnea (~2008) Overweight (BMI 25.0-29.9) Anxiety Pure hypercholesterolemia 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) Benign essential hypertension Diabetes mellitus Surgical History Status post repair of paraesophageal diaphragmatic hernia S/P laparoscopic fundoplication History of esophagogastroduodenoscopy (EGD) (~2020) History of colonoscopy (~2020) History of left knee surgery (~1992) History of cystoscopy (~2020) History of nasal surgery (~1996) History of arthroscopy of right shoulder (~2011) Family History Family History Father Lung cancer Mother Medical history unknown Maternal Grandfather Myocardial infarction Maternal Uncle Myocardial infarction Social History Social History Household Members: Significant Other and Children Housing: House Are you a primary med care manager to a significant other at home: No Do you presently have visiting nurse or other home services: No Alcohol intake: current Alcohol intake frequency: holidays/special occasions only Patient Tobacco Use Status: Former Tobacco user e-Cigarette/Vaping Use: Never Used Second Hand Smoke Exposure: Yes service: No Current occupational status: employed Cognitive needs: No Hearing needs: No Vision needs: Yes (reading glasses) Physical Exam 2 Vital Signs: Vital Signs: Last Vital Signs Temp 98.7 F 03/18/25 02:38 Pulse 113 H 03/18/25 02:38 Resp 20 03/18/25 02:38 BP 99/59 L 03/18/25 02:38 Pulse Ox 94 03/18/25 02:38 O2 Del Method Room Air 03/18/25 02:38 BMI result Body Mass Index 26.4 Appearance: Alert. Oriented X3. No acute distress. Eyes: PERRLA, No Nystagmus ENT: Pharynx normal. Oral Mucosa moist Neck: Normal inspection. Neck supple. CVS: Normal heart rate and rhythm. Pulses normal. Respiratory: No respiratory distress. Equal air entry bilateral, no wheezing/rales/rhonchi Abdomen: Soft and nontender. Bowel sounds are present, no mass palpable, no CVA tenderness Skin: Skin warm and dry. Normal skin color. Normal skin turgor. Extremities: No lower extremity edema. No calf tenderness Neuro: Oriented X 3. No motor deficit. Medications Administered Discontinued Medications Generic Name Dose Route Start Last Admin Trade Name Freq PRN Reason Stop Dose Admin Aspirin 162 mg 03/18/25 00:09 03/18/25 00:36 Aspirin Enteric Coated 81 Mg Tablet. PO 03/18/25 00:10 162 mg ONCE ONE Administration Ketorolac Tromethamine 30 mg 03/18/25 01:31 03/18/25 01:42 Ketorolac Tromethamine 30 Mg/Ml Vial IVPUSH 03/18/25 01:32 30 mg ONCE ONE Administration Lorazepam 2 mg 03/18/25 01:44 03/18/25 01:48 Lorazepam 1 Mg Tablet PO 03/18/25 01:45 2 mg ONCE ONE Administration Nitroglycerin 0.5 inch 03/17/25 23:13 03/17/25 23:19 Nitroglycerin 2 % Oint 1 Gm Packet TRANSDERMA 03/17/25 23:14 0.5 inch ONCE ONE Administration Tramadol HCl 50 mg 03/18/25 00:14 03/18/25 00:36 Tramadol Hcl 50 Mg Tablet PO 03/18/25 00:15 50 mg ONCE ONE Administration Medical Decision Making Medical Decision Making [facility] Narrative: Patient with high calcium score for possible coronary artery disease comes here for chest pain which he does get off and on two sets of cardiac enzymes negative EKG without any ischemic changes patient advised to follow with ethanol operator Differential Diagnosis ACS/atypical chest pain Admission/Observation Consideration of admission/observation: Escalation of care including admission/observation considered Lab Data [facility] Lab Attestation statement: I reviewed the patient's lab results. 03/17/25 23:15 03/17/25 23:15 Labs: Lab Results 03/17/25 03/17/25 03/18/25 Range/Units 23:15 23:22 01:31 WBC 9.9 (4.8-10.8) X10*3/uL RBC 5.14 (4.60-5.80) X10*6/uL Hgb 14.4 (14.0-18.0) g/dl Hct 40.1 L (42.0-52.0) % MCV 78.0 L (80.0-98.0) fL MCH 28.0 (27.0-33.0) pg MCHC 35.9 (31.0-36.0) g/dl RDW 12.8 (11.0-16.0) % Plt Count 233 (160-400) X10*3/uL MPV 9.7 (9.4-12.4) fL Immature Gran % (Auto) 0.2 (0.0-0.4) % Neut % (Auto) 77.2 H (45-73) % Lymph % (Auto) 13.4 L (20-40) % [place] % (Auto) 7.7 (2-11) % Eos % (Auto) 1.0 (0-4) % Baso % (Auto) 0.5 (0-2) % Lymph # (Auto) 1.3 (1.2-4.9) X10*3/uL [place] # (Auto) 0.8 (0.1-1.2) X10*3/uL Eos # (Auto) 0.1 (0.0-0.4) X10*3/uL Baso # (Auto) 0.1 (0.0-0.2) X10*3/uL Abs Immat Gran (auto) 0.02 (0.00-0.03) X10*3/uL Absolute Neuts (auto) 7.6 (2.0-8.3) x10*3/uL Absolute Nucleated RBC 0.000 (0.0-0.012) X10*3/uL Nucleated RBC % (auto) 0.0 (0.0-0.2) /100WBC PT 10.4 L (10.9-12.4) SEC INR 0.9 (0.9-1.1) APTT 29.5 (26.0-36.8) SEC Sodium 137 (135-145) mmol/L Potassium 4.1 (3.3-5.1) mmol/L Chloride 105 (96-108) mmol/L Carbon Dioxide 24 (22-29) mmol/L Anion Gap 12 (12-20) BUN 12 (9-16) mg/dL Creatinine 0.73 (0.5-1.4) mg/dL Estim Creat Clear Calc 124.6 Estimated GFR > 60 Random Glucose 334 H (60-115) mg/dL Calcium 8.5 (8.4-10.2) mg/dL Magnesium 1.5 L (1.6-2.6) mg/dL Total Bilirubin 0.4 (0.0-1.0) mg/dL AST 28 (5-37) U/L ALT 37 (0-40) U/L Alkaline Phosphatase 71 (39-117) U/L Troponin I High Sens < 2.7 < 2.7 (<3.5-35.0) ng/L Total Protein 6.5 (6.5-8.0) g/dL Albumin 4.0 (3.5-5.0) g/dL Lipase 19 (8-78) U/L Influenza Type A (PCR) NEGATIVE (Negative) Influenza Type B (PCR) NEGATIVE (Negative) RSV RNA Qual (PCR) NEGATIVE (Negative) SARS-CoV-2 RNA (RT-PCR) NEGATIVE (Negative) S. pyogenes GrpA ODILIA Negative (Negative) Independent Interpretation I performed an independent interpretation of an: EKG Interpretation: Sinus tachycardia heart rate of 104 beats per minute no acute STT wave changes no acute ischemia Discharge Plan Discharge Clinical Impression: Chest pain Patient Disposition: Home, Self-Care Instructions: Chest Pain (DC) Additional Instructions: At this time your chest pain does not seem to be from heart attack You need further follow up with your ethanol operator and PCP Continue your anxiety and other medications Prescriptions: New ibuprofen 600 mg tablet 600 mg PO Q6H PRN (Reason: fever or pain) Qty: 30 0RF No Action (DME) Dexcom G6 Transmitter Device See Rx Instructions .Route Qty: 1 0RF Rx Instructions: As directed (DME) Dexcom G6 Netbackup Admin Misc See Rx Instructions .Route Qty: 1 0RF Rx Instructions: As directed (DME) Dexcom G6 Sensor Device See Rx Instructions .Route Qty: 3 0RF Rx Instructions: As directed cholecalciferol (vitamin D3) [Vitamin D3] 25 mcg (1,000 unit) capsule 25 mcg PO DAILY Qty: 90 3RF atorvastatin [Lipitor] 20 mg tablet 20 mg PO DAILY Qty: 30 5RF metoprolol succinate 100 mg tablet extended release 24 hr 100 mg PO DAILY 90 Days Qty: 90 1RF sildenafil 50 mg tablet 50 mg PO DAILY PRN (Reason: Sexual Activity) Qty: 10 1RF paroxetine HCl 30 mg tablet 30 mg PO QAM Qty: 90 0RF multivitamin Tablet 1 tab PO DAILY metformin 500 mg tablet extended release 24 hr 500 mg PO BID Qty: 360 1RF icosapent ethyl [Vascepa] 0.5 gram capsule 2 g PO BID clobetasol 0.05 % cream 1 appl topical BID esomeprazole magnesium 20 mg capsule,delayed release(DR/EC) 20 mg PO DAILY Qty: 90 2RF Interventions: ED Discharge Assessment Last Done: 03/18/25 02:38 Discharge Date/Time: 03/18/25 02:41 Print Language: Bahraini
[2025-03-17 23:09] VITALS: BP 125/75; PULSE 105; RESP 18; O2SAT 98
[2025-03-17] MEDS: Nitroglycerin 2 % Oint 1 GM Packet 0.5 INCH TRANSDERMA (23:19)
[2025-03-17 23:20] LABS: MANUAL DIFF FLAG NO
[2025-03-17 23:21] LABS: Basophils Absolute Auto 0.1 X10*3/uL (0.0-0.2); Basophils Percent Auto 0.5 % (0-2); Eosinophils Absolute Auto 0.1 X10*3/uL (0.0-0.4); Hematocrit 40.1 % (42.0-52.0); Hemoglobin 14.4 g/dl (14.0-18.0); Imm Gran Abs Auto 0.02 X10*3/uL (0.00-0.03); Imm Gran Pct Auto 0.2 % (0.0-0.4); Lymphocytes Absolute Auto 1.3 X10*3/uL (1.2-4.9); Lymphocytes Percent Auto 13.4 % (20-40); Mean Corpuscular HGB Conc 35.9 g/dl (31.0-36.0); Mean Platelet Volume 9.7 fL (9.4-12.4); Monocytes Absolute Auto 0.8 X10*3/uL (0.1-1.2); Monocytes Percent Auto 7.7 % (2-11); Neutrophils Absolute Auto 7.6 x10*3/uL (2.0-8.3); Neutrophils Percent Auto 77.2 % (45-73); Platelet Count 233 X10*3/uL (160-400); Red Blood Count 5.14 X10*6/uL (4.60-5.80); Red Cell Distribution Width 12.8 % (11.0-16.0); White Blood Count 9.9 X10*3/uL (4.8-10.8)
[2025-03-17 23:30] LABS: INTERNATIONAL NORM RATIO 0.9 (0.9-1.1); Prothrombin Time 10.4 SEC (10.9-12.4)
[2025-03-17 23:33] LABS: Partial Thromboplastin Time 29.5 SEC (26.0-36.8)
[2025-03-17 23:34] LABS: Alanine Aminotransferase 37 U/L (0-40); Alkaline Phosphatase 71 U/L (39-117); Anion Gap 12 (12-20); Aspartate Amino Transferase 28 U/L (5-37); Bilirubin Total 0.4 mg/dL (0.0-1.0); Blood Urea Nitrogen 12 mg/dL (9-16); Calcium 8.5 mg/dL (8.4-10.2); Carbon Dioxide 24 mmol/L (22-29); Chloride 105 mmol/L (96-108); Creatinine Clr Calc Pharmacy 124.6; Estimated Glomerular Filt Rate > 60; Glucose Random 334 mg/dL (60-115); Lipase 19 U/L (8-78); Magnesium 1.5 mg/dL (1.6-2.6); Potassium 4.1 mmol/L (3.3-5.1); Sodium 137 mmol/L (135-145); Total Protein 6.5 g/dL (6.5-8.0)
[2025-03-17 23:45] LABS: Troponin-I High Sensitivity < 2.7 ng/L (<3.5-35.0)
[2025-03-17 23:53] LABS: IDNOW Serial# 55D5AD1C; Strep A Nucleic Acid Negative (Negative)
[2025-03-18 00:20] LABS: Influenza A PCR NEGATIVE (Negative); Influenza B PCR NEGATIVE (Negative); Resp Syncy Virus RNA Qual PCR NEGATIVE (Negative); SARS COV2 PCR INHOUSE NEGATIVE (Negative)
[2025-03-18] MEDS: traMADoL HCL 50 MG TABLET PO (00:36)
[2025-03-18] MEDS: Aspirin Enteric Coated 81 MG TABLET.DR 162 MG PO (00:36)
[2025-03-18 01:24] VITALS: BP 110/71; PULSE 108; RESP 20; TEMP 37.5; O2SAT 94
[2025-03-18] MEDS: Ketorolac Tromethamine 30 MG/ML VIAL IVPUSH (01:42)
[2025-03-18] MEDS: LORazepam 1 MG TABLET 2 MG PO (01:48)
[2025-03-18 01:58] LABS: Troponin-I High Sensitivity < 2.7 ng/L (<3.5-35.0)
[2025-03-18 02:38] VITALS: BP 99/59; PULSE 113; RESP 20; TEMP 37.1; O2SAT 94
== END 2025-03-18 02:41 | disposition home or self-care (01) ==
PROVIDERS: Emergency Provider Internal Medicine; PCP Internal Medicine
DX: R07.9 Chest pain, unspecified (principal); R42 Dizziness and giddiness; E11.9 Type 2 diabetes mellitus without complications; I10 Essential (primary) hypertension; E78.00 Pure hypercholesterolemia, unspecified; Z87.891 Personal history of nicotine dependence; Z03.818 Encounter for observation for suspected exposure to other biological agents ruled out; Z79.02 Long term (current) use of antithrombotics/antiplatelets; Z79.84 Long term (current) use of oral hypoglycemic drugs; Z79.899 Other long term (current) drug therapy
CPT/HCPCS: 0241U; 36415; 70450; 71045; 80053; 83690; 83735; 84484; 85025; 85610; 85730; 87651; 93005; 96374; 99285; J1885

== ENCOUNTER → 2025-03-17 22:22 | Outpatient (BNV) | payer OTHER, SELFPAY | PROVIDERS: Emergency Provider Internal Medicine; PCP Internal Medicine; Visit Provider Internal Medicine Cardiovascular Disease | DX: R00.0 Tachycardia, unspecified (principal) | CPT/HCPCS: 93010 ==

== ENCOUNTER → 2025-03-17 23:15 | Outpatient (BNV) | payer OTHER, SELFPAY | PROVIDERS: Emergency Provider Internal Medicine; PCP Internal Medicine; Visit Provider Radiology Diagnostic Radiology | DX: R51.9 Headache, unspecified (principal) | CPT/HCPCS: 70450 ==

== ENCOUNTER → 2025-03-18 00:48 | Outpatient (BNV) | payer OTHER, SELFPAY | PROVIDERS: Emergency Provider Internal Medicine; PCP Internal Medicine; Visit Provider Radiology Diagnostic Radiology | DX: R07.9 Chest pain, unspecified (principal) | CPT/HCPCS: 71045 ==

== ENCOUNTER 2025-06-08 11:53 | Outpatient (REF) | payer OTHER, SELFPAY ==
[2025-06-08 12:13] LABS: MANUAL DIFF FLAG NO
[2025-06-08 13:04] LABS: Hematocrit 42.0 % (42.0-52.0); Hemoglobin 14.5 g/dl (14.0-18.0); Imm Gran Abs Auto 0.01 X10*3/uL (0.00-0.03); Imm Gran Pct Auto 0.2 % (0.0-0.4); Lymphocytes Absolute Auto 1.8 X10*3/uL (1.2-4.9); Mean Corpuscular HGB Conc 34.5 g/dl (31.0-36.0); Mean Corpuscular Hemoglobin 27.2 pg (27.0-33.0); Mean Corpuscular Volume 78.8 fL (80.0-98.0); NRBC Abs Auto 0.000 X10*3/uL (0.0-0.012); NRBC Pct Auto 0.0 /100WBC (0.0-0.2); Platelet Count 229 X10*3/uL (160-400); Red Blood Count 5.33 X10*6/uL (4.60-5.80); White Blood Count 5.7 X10*3/uL (4.8-10.8)
[2025-06-08 13:15] LABS: Hemoglobin A1C 313.2316 umol/L; Total Hemoglobin (HGBA1C) 3736.0189 umol/L
[2025-06-08 13:40] LABS: Alanine Aminotransferase 49 U/L (0-40); Albumin Level 4.4 g/dL (3.5-5.0); Alkaline Phosphatase 69 U/L (39-117); Anion Gap 14 (12-20); Aspartate Amino Transferase 40 U/L (5-37); Blood Urea Nitrogen 20 mg/dL (9-16); Calcium 8.8 mg/dL (8.4-10.2); Carbon Dioxide 25 mmol/L (22-29); Chloride 104 mmol/L (96-108); Cholesterol 101 mg/dL (<200); Estimated Glomerular Filt Rate > 60; HDL Cholesterol 25 mg/dL (>40); Potassium 3.6 mmol/L (3.3-5.1); Sodium 139 mmol/L (135-145); Total Protein 6.7 g/dL (6.5-8.0); Triglycerides 271 mg/dL (<150)
--- OUTSIDE RECORDS SUMMARY | 2025-06-08 14:21 | XMS_ITS | Patient Health Record ---
Author Organization [facility] radha FriasJuan Antonio Address [address] [place] [address] Care Team Providers Care Senior Hydrogeologist Name Role Phone Lorne ROY, D Lo Primary Care Provider Dami Shaver Unavailable [phone] Reason For Referral No Information Medications Medication SIG (Take, Route, Fr equency, Duration) Notes Start Date End Date Status Omeprazole Orally Once a day; D uration: 30 day(s) Active Lisinopril 2.5 MG 1 tablet Orally Once a day; Duration: 30 day(s) Active Paxil 10 mg 1 tablet in the morn ing Orally Once a day; Duration: 30 day(s) Active Problems Problem Type SNOMED Code ICD Code Onset Dates Problem Status W/U Status Risk Notes Problem Bursitis (24977315) Bursitis (727.3) Active confirmed Problem Myositis (13750117) Myositis (729.1) Active confirmed Problem Pain in limb (21094008) Pain in Limb (729.5) Active confirmed Problem Plantar fasciitis (428788885) Plantar Fasciitis (728.71) Active confirmed Problem Calcaneal spur (76463126) Calcaneal spur (726.73) Active confirmed Plan Of Treatment Pending Test Test Name Order Date X ray : Foot, left 2V 05/22/2013 X ray : Foot, right 2V 05/22/2013 Insurance Providers Payer Name Payer Address Payer Phone Subscriber Number Group Number Insured Name Patient Relationship to Insured Coverage Start Date Coverage End Date [facility] [address] [place] [address] [id number] RICK SOLANO Self - patient is the insured Medical (General) History Medical History History ICD Code anxiety chicken pox reflux Surgical History Surgery Date(Month/Year) knee surgery 15-20 yrs ago shoulder surgery 2012
== END 2025-06-08 11:54 | disposition home or self-care (01) ==
LOC: HO.LAB 11:53
PROVIDERS: Absent Provider Internal Medicine Cardiovascular Disease; PCP Internal Medicine; Visit Provider Internal Medicine
DX: E11.9 Type 2 diabetes mellitus without complications (principal); D64.9 Anemia, unspecified; E78.00 Pure hypercholesterolemia, unspecified
CPT/HCPCS: 36415; 80053; 80061; 83036; 85025

== ENCOUNTER 2025-06-11 16:19 | Outpatient (AMB) | payer OTHER, SELFPAY ==
[2025-06-11 16:23] VITALS: BP 110/74; PULSE 77; O2SAT 95; BMI 26.6
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
--- OUTSIDE RECORDS SUMMARY | 2025-06-11 21:24 | XMS_ITS | Patient Health Record ---
Author Organization [facility] radha FriasJuan Antonio Address 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 Name Role Phone Lorne ROY, [place] Primary Care Provider Dami Shaver Unavailable [phone] Reason For Referral No Information Medications Medication [...] Status W/U Status Risk Notes Problem Bursitis (73057443) Bursitis (727.3) Active confirmed Problem Myositis (46603199) Myositis (729.1) Active confirmed Problem Pain in limb (56317001) Pain in Limb (729.5) Active confirmed Problem Plantar fasciitis (907381150) Plantar Fasciitis (728.71) Active confirmed Problem Calcaneal spur (12601861) Calcaneal spur (726.73) Active confirmed Plan Of Treatment Pending Test Test Name Order Date X ray : Foot, left 2V 05/22/2013 X ray : Foot, right 2V 05/22/2013 Insurance Providers Payer Name Payer Address Payer Phone Subscriber Number Group Number Insured Name Patient Relationship to Insured Coverage Start Date Coverage End Date [facility] [address] [place] [address] [id number] RICK SOLANO Self - patient is the insured Medical (General) History Medical History History ICD Code anxiety chicken pox reflux Surgical History Surgery Date(Month/Year) knee surgery 15-20 yrs ago shoulder surgery 2012
== END 2025-06-11 17:15 | disposition home or self-care (01) ==
LOC: HO.HMCH 16:20
PROVIDERS: PCP Internal Medicine; Visit Provider Internal Medicine
DX: E11.9 Type 2 diabetes mellitus without complications (principal); E78.00 Pure hypercholesterolemia, unspecified; I47.10 Supraventricular tachycardia, unspecified; R42 Dizziness and giddiness; G47.33 Obstructive sleep apnea (adult) (pediatric); K44.9 Diaphragmatic hernia without obstruction or gangrene; K21.9 Gastro-esophageal reflux disease without esophagitis; K22.70 Barrett's esophagus without dysplasia; K29.70 Gastritis, unspecified, without bleeding; R19.7 Diarrhea, unspecified; M19.111 Post-traumatic osteoarthritis, right shoulder; E55.9 Vitamin D deficiency, unspecified; F41.9 Anxiety disorder, unspecified; E66.3 Overweight